=== PATIENT | male | born 1970 | race Caucasian/White ===

== ENCOUNTER 2023-10-07 18:46 | Outpatient (CLI) | payer OTHER, SELFPAY ==
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
--- OUTSIDE RECORDS SUMMARY | 2023-10-11 15:45 | XMS_ITS | Referral Summary ---
Author Name Unknown Organization [facility] Address [address] [place] [address] Care Team Providers Care Straight Edger Name Role Phone Unavailable Primary Care Provider Unavailabl e Allergies No known active allergies Medications Medication Sig Dispensed Refills Start Date End Date Status amitriptyline (ELAVIL) 25 MG tablet Take 1 tablet (25 mg) by mouth At Bedtime 90 tablet 1 06/29/2013 Active HYDROcodone-acetamin ophen (NORCO) 5-325 MG per tablet Take 1 tablet by mouth every 6 hours as needed for pain 42 tablet 0 06/29/2013 Active morphine 2.5 MG Take 2 tablets (5 mg) by mouth every 4 hours as needed for pain 0 06/29/2013 Active hydrOXYzine (VISTARIL) 50 MG capsule Take 1 capsule (50 mg) by mouth 3 times daily as needed for itching 120 capsule 0 06/29/2013 Active Active Problems Problem Noted Date Diagnosed Date CARDIOVASCULAR SCREENING; LDL GOAL LESS THAN 160 12/01/2012 Lumbar radiculopathy 12/01/2012 Immunizations Name Administration Dates Next Due TDAP (Adacel,Boostrix) 06/11/1998 Social History Tobacco Use Types Packs/Day Years Used Date Smoking Tobacco: Never Smokeless Tobacco: Never Alcohol Use Standard Drinks/Week Comments Yes 1.7 (1 standard drink = 0.6 oz p ure alcohol) rare Adolescent Education Answer Date Record ed Getting School Help Needed Not on file 06/08 Sex and Gender Information Value Date Recorded Sex Assigned at Not on file Gender Identity Not on file Sexual Orientation Not on file Last Filed Vital Signs Vital Sign Reading Time Taken Comments Blood Pressure 134/85 08/15/2022 11:20 AM SOLIDS CONTROL TECHNICIAN Pulse 72 08/15/2022 11:20 AM SOLIDS CONTROL TECHNICIAN Temperature 36.7 ??C (98.1 ??F) 06/29/2013 9:03 AM CD T Respiratory Rate - - Oxygen Saturation 98% 06/29/2013 9:03 AM CDT Inhaled Oxygen Concentration - - Weight 85.8 kg (189 lb 4 oz) 06/29/2013 9:03 AM CDT Height 175.3 cm (5' 9) 06/29/2013 9:03 AM CDT Body Mass Index 27.95 06/29/2013 9:03 AM CDT Plan of Treatment Not on file
--- OUTSIDE RECORDS SUMMARY | 2023-10-11 15:45 | XMS_ITS | Clinical Summary ---
Author Name Unknown Organization [facility] Address [facility] [place] [address] Care Team Providers Care Traffic Counter Name Role Phone Unavailable Primary Care Provider [...] Administration Dates Next Due TDAP (Adacel,Boostrix) 06/11/1998 Family History Medical History Relation Comments Cancer Maternal Grandmother throat Relation Status Comments Father Alive Maternal Grandmother Mother Social History Tobacco Use Types Packs/Day [...] Comments Blood Pressure 134/85 08/15/2022 11:20 AM MANAGER TEST Pulse 72 08/15/2022 11:20 AM MANAGER TEST Temperature 36.7 ??C (98.1 ??F) 06/29/2013 9:03 AM CD T Respiratory Rate - - Oxygen Saturation 98% 06/29/2013 9:03 AM CDT Inhaled Oxygen Concentration - - Weight 85.8 kg (189 lb 4 oz) 06/29/2013 9:03 AM CDT Height 175.3 cm (5' 9) 06/29/2013 9:03 AM CDT Body Mass Index 27.95 06/29/2013 9:03 AM CDT Plan of Treatment Health Maintenance Due Date Last Done Comments ADVANCE CARE PLANNING 1970 ANNUAL REVIEW OF HM ORDERS 1970 CT COLONOGRAPHY 1970 FIT 1970 FLEX SIG 1970 GLUCOSE 1970 YEARLY PREVENTIVE VISIT 1970 sDNA (Cologuard) 1970 COVID-19 Vaccine (#1) 05/21/1971 COLONOSCOPY 1980 COLORECTAL CANCER SCREENING 1980 HIV SCREENING 1985 HEPATITIS C SCREENING 1988 HEPATITIS B IMMUNIZATION (3 of 3 - Hep B Twinrix 3-dose series) 03/03/2008 10/04/2007, 01/03/2007 LIPID 2010 ZOSTER IMMUNIZATION (1 of 2) 2020 DTAP/TDAP/TD IMMUNIZATION (4 - Td or Tdap) 06/02/2022 06/02/2012, 01/03/2007, 06/11/1998, Additional history exists INFLUENZA VACCINE (#1) 2023 5, 07/03/2014, 06/15/2012, Additional history exists PHQ-2 (once per calendar year) 2023 HPV IMMUNIZATION Aged Out No longer e ligible based on patient's age to complete this topic IPV IMMUNIZATION Aged Out No longer e ligible based on patient's age to complete this topic MENINGITIS IMMUNIZATION Aged Out No l onger eligible based on patient's age to complete this topic Pneumococcal Vaccine: Pediatrics (0 to 5 Years) and At-Risk Patients (6 to 64 Years) Aged Out No longer eligible based on patient's age to complete this topic RSV MONOCLONAL ANTIBODY Aged Out No l onger eligible based on patient's age to complete this topic
--- OUTSIDE RECORDS SUMMARY | 2023-10-11 15:46 | XMS_ITS | Encounter Summary ---
Author Name [employer] [facility] [employer] Organization [facility] Address [address] [place] [address] Support Name Relationship Address Phone BRANDONGILMAMELQUIADES L Next of Kin [address] [place] [address] MELQUIADES TAYLOR Emergency Contact [phone] [place] [address] Insurance Providers: All historical and current Section Date Range: From patient's date of to the date document was created. This section includes the names of all active insurance providers for the patient. Insurance Provider Type of Coverage Plan Name Start of Policy Coverage End of Policy Coverage Group Number Member ID Insurance Provider's Telephone Number Policy Haque's Name Patient's Relationship to Policy Haque MEDICARE (WNR) MEDICARE (M) PART A January 01, 2016 PART A [id number] [phone] DUSTIN TAYLOR JR PATIENT MEDICARE (WNR) MEDICARE (M) PART B January 01, 2016 PART B [id number] [phone] DUSTIN TAYLOR JR PATIENT Selected Encounter This section includes the information on record at MD for the Encounter. Date/Time Encounter Type Encounter Description Reason Provider Source Oct 01, 2023 01:00 PM OFFICE O/P EST MOD 30 MIN ORTHO/JOINT SURG ICD-10-CM M25.512 Pain in left shoulder BAYRON PHAM MD [facility] Encounter Template Text not used by MD Assessments - Encounter Diagnoses This section includes the primary and secondary diagnoses documented for the Encounter. Date/Time Primary/Secondary Diagnosis Diagnosis Name Provider Source Oct 10, 2023 10:04 AM PRIMARY Pain in left shoulder BAYRON PHAM MD [facility] Plan of Treatment: Future Appointments (+ 6 months) and Future Tests (+/- 45 days) The Plan of Treatment section includes [facility] care activities for the [facility] This section includes future appointments and future orders which are active, pending or scheduled. Future Appointments This section includes appointments that were scheduled to occur 6 months from the date of the Encounter, up to a maximum of 20 appointments. The data comes from all [facility]. Appointment Date/Time Appointment Type Appointme nt Facility Name Oct 04, 2023 02:30 PM AMBULATORY - REHAB MEDICIN E [facility] Oct 14, 2023 11:30 AM AMBULATORY - REHAB MEDICIN E [facility] Oct 25, 2023 11:30 AM AMBULATORY - REHAB MEDICIN E [facility] Oct 31, 2023 01:00 PM AMBULATORY - NONE [facility] Nov 01, 2023 02:00 PM AMBULATORY - NONE [facility] 2023 09:00 AM AMBULATORY - REHAB MEDICIN E [facility] Feb 26, 2024 01:30 PM AMBULATORY - MEDICINE [facility] Active, Pending, and Scheduled Orders This section includes a listing of several types of active, pending, and scheduled orders, including clinic medications orders, diagnostic test orders, procedure orders and consult orders; where the start date of the order is 45 days before the date of the Encounter or 45 days after the date of theEncounter. The data comes from all [facility]. Test Date/Time Test Type Test Details Facility Name Aug 30, 2023 02:56 PM Consult Order SLEEP APNE A CLINIC OUTPT Cons Recreational Programs Director's Choice [facility] Oct 31, 2023 12:00 AM Laboratory - Chemi stry Order TESTOSTERONE SERUM SP ONCE [facility] Oct 31, 2023 12:00 AM Laboratory - Chemi stry Order CBC BLOOD SP ONCE [facility] Social History: Smoking Status (Most current) and Tobacco Use (All prior to encounter date) This section includes the most current, and the historical, smoking and tobacco- related health factors from the MD facility where the Encounter took place. Current Smoking Status This section includes the most current smoking, or tobacco-related health factor, from the MD facility where the Encounter took place. Date/Time Current Smoking Status Comment Shayne ity Nov 20, 2016 09:03 AM LIFETIME NON-TOBACCO USER [facility] Tobacco Use History This section includes a history of the smoking, or tobacco-related health factors, that were collected on or before the date of the Encounter. The data comes from the MD facility where the Encounter took place. Date/Time Smoking Status/Tobacco Use Comment F acility Jun 29, 2016 07:34 AM INPT NO TOBACCO USE IN LAST 30 D AYS [facility] Dec 12, 2015 12:47 PM LIFETIME NON-TOBACCO USER [facility] Dec 28, 2014 12:34 PM LIFETIME NON-TOBACCO USER [facility] Jul 08, 2012 07:40 AM LIFETIME NON-TOBACCO USER [facility] Radiology Reports: +/- 30 days of the encounter Radiology Reports For cases when an order for radiology services may have been completed prior to the date of the Encounter, the report list includes the Radiology Reports that were completed up to 30 days before dateof the Encounter. For cases when an order for radiology services may have been completed after the date of the Encounter, the report list also includes the Radiology Reports that were completed up to30 days after date of the Encounter. The data comes from all MD treatment facilities. Date/Time Radiology Report Provider Source Oct 01, 2023 12:22 PM SHOULDER LEFT 4V(AP,Y VIEW, GRASHEY & AXILLARY): DUSTIN TAYLOR [id number] -[id number] M Exm Date: OCT 01, 2023@12:22 Req Phys: BAYRON PHAM MD Pat Loc: [facility] MD PHAM (Req'g Loc Img Loc: MAIN X-RAY Service: Unknown (Case [id number] COMPLETE) SHOULDER LEFT 4V(AP,Y VIEW, GRASH(RAD Detailed) CPT:70652 Proc Modifiers : LEFT Reason for Study: Pain Clinical History: [place] IS NOT under investigation for COVID-19 or is COVID-19 negative Pain Responsible provider name and phone number to notify for critical findings if other than user placing the order and pager listed below: User placing orders pager: LAST CREATININE 1.4 H (02/26/23) Report Status: Verified Date Reported: OCT 01, 2023 Date Verified: OCT 01, 2023 Electrician Journeyman Wireman E-Sig:/ES/SARA BROWNE MD Report: DATE/TIME REGISTERED: 10/01/2023 12:22 PM STUDY: SHOULDER LEFT 4V(AP,Y VIEW, GRASHEY & AXILLARY) HISTORY: Pain FINDINGS: 4 views of the left shoulder reveal normal bony architecture and smooth cortical margins. No fractures or destructive lesions are appreciated. The glenohumeral and AC joints are unremarkable. The subacromial space is preserved. No soft tissue calcifications are identified. The upper chest is unremarkable where seen. Impression: 1. Normal plain film examination of the left shoulder. Primary Interpreting Staff: SARA BROWNE MD, RADIOLOGIST (Electrician Journeyman Wireman) /SARA MENDOZA [facility] Oct 01, 2023 06:51 AM MRI SHOULDER LEFT (P): DUSTIN TAYLOR [id number] M Exm Date: OCT 01, 2023@06:51 Req Phys: BAYRON PHAM MD Pat Loc: [facility] MD PHAM (Req'g Loc Img Loc: MRI IMAGING Service: Unknown (Case [id number] COMPLETE) MRI SHOULDER LEFT W/O CONTRAST (MRI Detailed) CPT:02945 Reason for Study: Eval rotator cuff Clinical History: Per Joint Commission Standards, by signing this diagnostic imaging request the ordering provider confirms they have considered patients age and recent imaging history. Increased left shouolder pain following lifting injury Responsible provider name and phone number to notify for critical findings if other than user placing the order and pager listed below: User placing orders pager: LAST CREATININE 1.4 H (02/26/23) Allergies: CYCLOBENZAPRINE (May 03, 2020) METHOCARBAMOL (May 03, 2020) Report Status: Verified Date Reported: OCT 01, 2023 Date Verified: OCT 01, 2023 Electrician Journeyman Wireman E-Sig:/ES/NEGRITA HART MD Report: Exam: MRI SHOULDER LEFT W/O CONTRAST 10/01/2023 History: Previous left shoulder pain with lifting injury. Evaluate rotator cuff. Comparison: Left shoulder radiograph 06/01/2022. Left shoulder MRI arthrogram 08/15/2022. Technique: Multiplanar, multisequence MR images through the shoulder were obtained without intravenous contrast. Findings: Rotator cuff: There is full-thickness tearing of the supraspinatus tendon involving most of the anterior to posterior width of the tendon. There is tendon retraction by 1.2 cm. Infraspinatus tendon is intact. Teres minor tendon is intact. There is mild distal subscapularis tendon with low-grade chronic appearing intrasubstance tearing. Muscle bulk is normal. There is mild edema along the deep fibers of the subscapularis muscle (series 5 image 13, series 3 image 15). Labral scapular structures: Glenoid labrum appears intact. Slight intra-articular long biceps tendinopathy. Suspected normal variant bifid long biceps tendon. Slight medial subluxation of the long biceps tendon into the subscapularis tendon. Acromion/clavicle: There is minimal degenerative bony spurring of distal clavicle. Acromioclavicular joint space is widened, similar to 2022 MRI arthrogram. There is an acromioclavicular joint effusion which likely communicates with the subacromial subdeltoid bursal fluid, more definitively demonstrated on prior MRI arthrogram. There is no os acromiale. The subacromial-subdeltoid bursal fluid communicates with the glenohumeral joint fluid through the full-thickness rotator cuff tear. Osseous and articular structures: No suspicious osseous lesion. Humeral head is well-seated within the glenoid. There is thinning of glenohumeral articular cartilage. No subchondral osseous changes. Inferior joint capsule is normal. No suprascapular or spinoglenoid notch lesion. Tiny glenohumeral joint effusion. Impression: 1. Full-thickness tearing of the majority of the anterior to posterior width of the supraspinatus tendon with tendon retraction by 1.2 cm. The tearing has progressed compared to 2022 MRI arthrogram. 2. Mild distal subscapularis tendinopathy with low-grade, chronic appearing intrasubstance tearing. Mild strain of the deep fibers of the subscapularis muscle. 3. Slight intra-articular long biceps tendinopathy. Slight medial subluxation of the tendon into the subscapularis tendon. 4. Minimal degenerative spurring of the distal clavicle. Chronic widening of the acromioclavicular joint with joint effusion. 5. Thinning of glenohumeral articular cartilage. Primary Interpreting Staff: NEGRITA HART MD, RADIOLOGIST (Electrician Journeyman Wireman) /NEGRITA MATSON [facility] Encounter Notes: All associated encounter notes This section contains the clinical notes associated to the Encounter. Date/Time Encounter Note(s) Provider Source Oct 01, 2023 01:43 PM ORTHOPEDIC SURGERY ATTENDING NOTE: LOCAL TITLE: ORTHOPEDIC CLINIC NOTE STANDARD TITLE: ORTHOPEDIC SURGERY ATTENDING NOTE DATE OF NOTE: OCT 01, 2023@13:43 ENTRY DATE: OCT 01, 2023@13:43:19 AUTHOR: BAYRON PHAM MD EXP COSIGNER: URGENCY: STATUS: COMPLETED Orthopedic clinic note 52-year-old gentleman followed for a recurrance of left shoulder pain while lifting dumbells. He had severe scapular dyskinesis and a history of a possible cuff tear on a previous MRI. We recommended PT to correct his scapular mechanics and a non contrast MRI to evaluate for cuff tear given his young age. Did not go to therapy as previously arranged. He is doing some work in the gym. Complains of superior shoulder deformity and posterior pain. Not aggravated with pushing or Benchpress and no feelings of instability. Pain is similar to before with pain along the medial scapula and now pain superiorly along the trap. Persistent scapular ptosis The superior deformity he paints out seems to be prominance of the trap due to the scapular malpositioning, and is eliminated with manual correction of his scapular position Severe scapular dyskinesis Pain about the medial scapula with forward elevation Much decreased pain with scapular assist maneuver Improved external rotation strength still less than on the opposite side. Mild pain with resisted cuff testing Negative lift off, negative belly press, equivocal bearhug Pain in the bicipital groove with palpation Negative aprehension Negative Jerk test X-rays taken today show marked scapular malpositioning. There is absence of glenohumeral DJD. No subluxation with humeral head elevation. Sclerotic bony change at the greater tuberosity. MRI scan from 10/01/2023 demonstrates full-thickness supraspinatus tear. There is upper portion tearing of the subscapularis with medial bicipital subluxation into the subscapularis tendon. No rotator cuff atrophy noted 52 yo gentleman with left shoulder pain and rotator cuff tear on MRI Marked progression of supraspinatus tear compared to prior arthrogram in 2021 Subscapularis tear with biceps medial subluxation Persistent severe scapular ptosis and scapular dyskinesis which seems to be the primary pain generator. He understands his pain will not improve unless he can correct his scapular mechanics. We also discussed the ramifications of a cuff tear in a young person. He understands we typically recommend cuff repair to decrease the risk for enlargement of the cuff tear. He is interested in cuff reapait but would not be able to undergo surgery and associated rehab until much later in the year. Plan: PT to corrrect his scapular mechanics F/U in early April to discuss cuff repair and poss subscap with biceps tenodesis with one of my shoulder partners /es/ BAYRON PHAM MD STAFF SURGEON Signed: 10/10/2023 10:05 BAYRON PHAM MD [facility]
--- OUTSIDE RECORDS SUMMARY | 2023-10-11 15:46 | XMS_ITS | Continuity of Care Document ---
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 It does not include entries that were removed or entered in error. Problem Status Onset Date Problem Type Date of Resolution Comments Source lumbago Active Condition [facility] herniated intervertebral disc Active Condition [facility] lumbar spondylosis Active Condition [facility] visit for: administrative purpose Inactive Condition DoD Allergic Rhinitis ([facility] [id number]) [facility] BACKACHE NOS Active Condition [facility] Body mass index 25-29 - overweight [facility] Chronic pain Active Condition Mar 11, 2020 Entered By: ROSELYN RIOS Comment: discussed likely dx fibromyalgia; see 03/02/19 [facility] note for details [facility] Erectile dysfunction Active Condition [facility] Exposure to potentially hazardous substance Active Condition [facility] Family social history Active Condition Feb 22, 2022 Entered By: WONG MERCER Comment: 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,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,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, 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[employer]( [employer])Feb 22, 2022 Entered By: WONG MERCER Comment: Lives with 2 daughters 14 and 10 yr old part timeJun 2021 Entered By: WONG MERCER Comment: NEVER USED TOBACCO OR SMOKED TOBACCOJun 2021 Entered By: WONG MERCER Comment: Alcohol use 4-5 drinks upto four times a month ( Every other weekend)Feb 22, 2022 Entered By: WONG MERCER Comment: [place], has exposure to ticks, 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, 1 dogJun 2021 Entered By: WONG MERCER Comment: Mom passed in her 60's, CHF, Dad is alive had a stroke in 21 at age 71Jun 2021 Entered By: WONG MERCER Comment: 1 Younger brother is healthyJun 2021 Entered By: WONG MERCER Comment: maternal grandma smoked and had throat cancer [facility] Generalized anxiety disorder (SNOMED CT 63086820) Active Condition [facility] H/O: surgery Active Condition Feb 22, 2022 Entered By: WONG MERCER Comment: s/p VasectomyJun 2021 Entered By: WONG MERCER Comment: s/p Bilteral Distal Biceps repair separatelyJun 2021 Entered By: WONG MERCER Comment: s/p C6-7 ForaminotomyJun 2021 Entered By: WONG MERCER Comment: s/p lower back fusion L4-S1 WITH HARDWAREJun 2021 Entered By: WONG MERCER Comment: s/p wisdom teeth extraction [facility] Insomnia Active Condition [facility] Major depressive disorder (SNOMED CT 983824751) Active Condition [facility] Male hypogonadism [facility] Osteoarthritis Active Condition [facility] Pain of right temporomandibular joint Active Condition [facility] Prediabetes Active Condition [facility] Rupture of tendon of biceps Active Condition [facility] Sleep apnea (SNOMED CT 51980137) Active Condition Mar 11, 2020 Entered By: ROSELYN RIOS Comment: doesn't wear CPAP because can't have something covering his face [facility] Diagnosis: ICD-10-CM M25.512 Pain in left shoulder Active Diagnosis [facility] Diagnosis: ICD-10-CM 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, right shoulder Active Diagnosis [facility] Diagnosis: ICD-10-CM E29.1 Testicular hypofunction Active Diagnosis [facility] Diagnosis: ICD-10-CM M20.21 Hallux rigidus, right foot Active Diagnosis [facility] Diagnosis: ICD-10-CM Z00.8 Encounter for other general examination Active Diagnosis [facility] Diagnosis: ICD-10-CM M25.519 Pain in unspecified shoulder Active Diagnosis [facility] Diagnosis: ICD-10-CM M25.511 Pain in right shoulder Active Diagnosis [facility] Diagnosis: ICD-10-CM Z71.9 Counseling, unspecified Active Diagnosis [facility] Diagnosis: ICD-10-CM G89.29 Other chronic pain Active Diagnosis [facility] Medications Combined list of outpatient medications from Department of Defense and Veterans Affairs facilities.Medications provided include 1) outpatient medications from the last 15 months, and 2) patient-reported medications. Medication Details Route Status Patient Instructions Prescription Expires Prescription Number Last Dispense Date Ordering Provider Order Date Source BIOTIN CAP,ORAL TAKE COLLAGEN /BIOTIN/ VITAMIN C COMBO BY MOUTH EVERY DAY ORALLY ACTIVE EM LAW 2022 [facility]X: Sildenafil 100 mg/Placebo Tablet Oral TAKE ONE-HALF TABLET BY MOUTH NEEDED FOR ERECTILE DYSFUNCT ION 1 HOUR BEFORE ANTICIPA DARLENE SEXUAL ACTIVITY Active 02/27/2024 [id number] RIKA HAQUE 2022 [facility] IRX: Sildenafil 100 mg/Placebo Tablet Oral TAKE ONE-HALF TABLET BY MOUTH NEEDED FOR ERECTILE DYSFUNCT ION 1 HOUR BEFORE ANTICIPA DARLENE SEXUAL ACTIVITY Active 02/27/2024 [id number] 3 RIKA HAQUE 2022 [facility] IRX: Sildenafil 100 mg/Placebo Tablet Oral TAKE ONE-HALF TABLET BY MOUTH NEEDED 1 HOUR BEFORE ANTICIPA DARLENE SEXUAL ACTIVITY --MAXIMU M 4 DOSES FOR 30-DAY SUPPLY. FOR ERECTION S 05/22/2023 [id number] 3 WONG MERCER S 2022 [facility] L-ARGININE 500MG TAB TAKE TWO TABLETS BY MOUTH EVERY DAY ORALLY ACTIVE EM LAW 2022 [facility] MILK THISTLE CAP/TAB TAKE 175MG BY MOUTH EVERY DAY ORALLY ACTIVE EM LAW 2022 [facility] MULTIVITAMI NS CAP/TAB TAKE ONE TABLET BY MOUTH EVERY DAY ORALLY ACTIVE EM LAW 2022 [facility] NON VA MED NOT LISTED MISCELLANEO US USE L-GLUTAM INE 5G MOUTH EVERY DAY ORALLY ACTIVE EM LAW 2022 [facility] SILDENAFIL CITRATE 100MG TAB TAKE ONE-HALF TABLET BY MOUTH NEEDED FOR ERECTILE DYSFUNCT ION 1 HOUR BEFORE ANTICIPA DARLENE SEXUAL ACTIVITY ORALLY ACTIVE 02/27/2024 [id number] 3 RIKA HAQUE 2022 [facility] SILDENAFIL CITRATE 100MG TAB TAKE ONE-HALF TABLET BY MOUTH NEEDED 1 HOUR BEFORE ANTICIPA DARLENE SEXUAL ACTIVITY --MAXIMU M 4 DOSES FOR 30-DAY SUPPLY. FOR ERECTION S ORALLY DISCONT INUED 05/22/2023 [id number] SYLIVE,EMMA GA S 2021 [facility] TESTOSTERON E 1.62% 20.25MG/PUM P GEL,TOP APPLY 2 PUMPS TOPICALL Y ONCE A DAY FOR LOW TESTOSTE ANGEL TOPICA LLY DISCONT INUED 08/31/2023 [id number] 3 RIKA HAQUE 2022 [facility] Testosteron e 20.25 mg/Actuatio n, Gel/Jelly, Topical APPLY 2 PUMPS TOPICALL Y ONCE A DAY FOR LOW TESTOSTE ANGEL Discont inued 08/31/2023 [id number] 3 RIKA HAQUE 2022 [facility] TESTOSTERON E CYPIONATE 200MG/ML INJ,1ML (IN OIL) INJECT 0.5ML (100MG) INTRAMUS CULAR EVERY WEEK FOR LOW TESTOSTE ANGEL FOR HYPOGONA DISM (200MG IS 1ML) -DISCARD VIAL AFTER WITHDRAW ING A SINGLE DOSE INTRAM USCULA R ACTIVE 03/05/2024 [id number] 4 RIKA HAQUE 2023 [facility] TESTOSTERON E CYPIONATE 200MG/ML INJ,1ML (IN OIL) INJECT 1ML (200MG) INTRAMUS CULAR EVERY 2 WEEKS FOR HYPOGONA DISM (200MG IS 1ML) -DISCARD VIAL AFTER WITHDRAW ING A SINGLE DOSE INTRAM USCULA R DISCONT INUED (EDIT) 10/09/2023 [id number] 3 RIKA HAQUE 2022 [facility] TESTOSTERON E CYPIONATE 200MG/ML INJ,1ML (IN OIL) INJECT 200MG INTRAMUS CULAR EVERY 2 WEEKS FOR HYPOGONA DISM (200MG IS 1ML) -DISCARD VIAL AFTER WITHDRAW ING A SINGLE DOSE INTRAM USCULA R DISCONT INUED 08/29/2023 [id number] 3 RIKA HAQUE 2022 [facility] TESTOSTERON E CYPIONATE 200MG/ML INJ,1ML (IN OIL) INJECT 200MG INTRAMUS CULAR EVERY 2 WEEKS FOR HYPOGONA DISM (200MG IS 1ML) -DISCARD VIAL AFTER WITHDRAW ING A SINGLE DOSE INTRAM USCULA R DISCONT INUED 06/07/2023 [id number] 3 ERCAN-FAN G,NACIDE 2022 [facility] TESTOSTERON E CYPIONATE 200MG/ML INJ,1ML (IN OIL) INJECT 200MG INTRAMUS CULAR EVERY 2 WEEKS FOR HYPOGONA DISM (200MG IS 1ML) -DISCARD VIAL AFTER WITHDRAW ING A SINGLE DOSE INTRAM USCULA R DISCONT INUED 12/13/2022 [id number] 3 ERCAN-FAN G,NACIDE 2021 [facility] Testosteron e Cypionate 200mg/mL, Injection INJECT 0.5ML (100MG) INTRAMUS CULAR EVERY WEEK FOR LOW TESTOSTE ANGEL FOR HYPOGONA DISM (200MG IS 1ML) -DISCARD VIAL AFTER WITHDRAW ING A SINGLE DOSE Active 03/05/2024 [id number] 4 RIKA HAQUE 2023 [facility] Testosteron e Cypionate 200mg/mL, Injection INJECT 1ML (200MG) INTRAMUS CULAR EVERY 2 WEEKS FOR HYPOGONA DISM (200MG IS 1ML) -DISCARD VIAL AFTER WITHDRAW ING A SINGLE DOSE Discont inued 10/09/2023 [id number] 3 RIKA HAQUE 2022 [facility] Testosteron e Cypionate 200mg/mL, Injection INJECT 200MG INTRAMUS CULAR EVERY 2 WEEKS FOR HYPOGONA DISM (200MG IS 1ML) -DISCARD VIAL AFTER WITHDRAW ING A SINGLE DOSE 12/13/2022 [id number] ERCAN-FAN G, NACIDE 2022 [facility] Allergies, Adverse Reactions, Alerts Combined list of allergies from Department of Defense and Veterans [facility] facilities. It does not include entries that were removed or entered in error. Substance Category Reaction Severity Reaction type Status Date Reported Comments Source CYCLOBENZAPRIN E Drug allergy (disorder ) Drowsy active 0 [facility] METHOCARBAMOL Drug allergy (disorder ) Drowsy active 0 [facility] Immunizations Combined list of available immunizations from the Department of [facility] and Veterans [facility] facilities. Immunization Series Date Given Administered By Site Reaction Lot Number CVX Code Drug Grade And Center Marker Status Comments Source INFLUENZA, SEASONAL, INJECTABLE 2014 141 complet ed [facility] INFLUENZA, SEASONAL, INJECTABLE 2013 141 complet ed per pt [facility] Influenza, seasonal, injectable, preservative free 1 2011 [id number] [employer], [place]. (CSL) complet ed Influenza , seasonal, injectabl e, preservat mumtaz free [facility] INFLUENZA, UNSPECIFIED FORMULATION 2011 88 complet ed [facility] TDAP 2011 115 complet ed [facility] influenza virus vaccine, split virus (incl. purified surface antigen)-reti red CODE 1 2007 UNK 15 Unknown (UNK) comple t ed influenza virus vaccine, split virus (incl. purified surface antigen)- retired CODE DoD hepatitis A and hepatitis B vaccine 2 2007 [id number] 104 Unknown (UNK) complet ed hepatitis A and hepatitis B vaccine DoD hepatitis A and hepatitis B vaccine 1 2006 [id number] 104 Unknown (UNK) complet ed hepatitis A and hepatitis B vaccine DoD tetanus toxoid, reduced diphtheria toxoid, and acellular pertu is vaccine, adsorbed 1 2006 [id number] 115 Unknown (UNK) complet ed tetanus toxoid, reduced diphtheri a toxoid, and acellular pertussis vaccine, adsorbed DoD influenza virus vaccine, split virus (incl. purified surface antigen)-reti red CODE 1 2005 [id number] 15 Unknown (UNK) complet ed influenza virus vaccine, split virus (incl. purified surface antigen)- retired CODE DoD Results Combined list of recent chemistry, hematology and other laboratory results from Department of Defense and Veterans Affairs, ranging from 15 months to all on record, depending upon the facility. Order Name Results Value Reference Range Date Interpretation Specimen Comments Source LIPID PANEL,NON -FASTING CHOLESTEROL [MASS/VOLUM E] IN SERUM OR PLASMA 177 <199 - 199 08/27 Specimen Type: PLASMA No comment entered. Ordering Provider: LOYDA HAQUE Report Released Date/Time: Feb 27, 2023 08:53 AM Reporting Lab: [facility] [address] Performing Lab: [facility] [address] [facility] LIPID PANEL,NON -FASTING CHOLESTEROL IN HDL [MASS/VOLUM E] IN SERUM OR PLASMA 49 40 08/27 Specimen Type: PLASMA No comment entered. Ordering Provider: LOYDA HAQUE Report Released Date/Time: Feb 27, 2023 08:53 AM Reporting Lab: [facility] [address] Performing Lab: [facility] [address] [facility] LIPID PANEL,NON -FASTING CHOLESTEROL IN LDL [MASS/VOLUM E] IN SERUM OR PLASMA BY CALCULATION 113 <99 - 99 08/27 H Specimen Type: PLASMA No comment entered. Ordering Provider: LOYDA HAQUE Report Released Date/Time: Feb 27, 2023 08:53 AM Reporting Lab: [facility] [address] Performing Lab: [facility] [address] [facility] LIPID PANEL,NON -FASTING CHOLESTEROL IN VLDL [MASS/VOLUM E] IN SERUM OR PLASMA BY CALCULATION 15 <29 - 29 08/27 Specimen Type: PLASMA No comment entered. Ordering Provider: LOYDA HAQUE Report Released Date/Time: Feb 27, 2023 08:53 AM Reporting Lab: [facility] [address] Performing Lab: [facility] [address] [facility] LIPID PANEL,NON -FASTING CHOLESTEROL NON HDL [MASS/VOLUM E] IN SERUM OR PLASMA 128 <129 - 129 08/27 Specimen Type: PLASMA No comment entered. Ordering Provider: LOYDA HAQUE Report Released Date/Time: Feb 27, 2023 08:53 AM Reporting Lab: [facility] [address] Performing Lab: [facility] [address] [facility] LIPID PANEL,NON -FASTING TRIGLYCERID E [MASS/VOLUM E] IN SERUM OR PLASMA 77 <149 - 149 08/27 Specimen Type: PLASMA No comment entered. Ordering Provider: LOYDA HAQUE Report Released Date/Time: Feb 27, 2023 08:53 AM Reporting Lab: [facility] [address] Performing Lab: [facility] [address] [facility] TESTOSTER ONE TESTOSTERON E [MASS/VOLUM E] IN SERUM OR PLASMA 1382 221 - 870 08/27 H Specimen Type: SERUM No comment entered. Ordering Provider: EM SILVER Report Released Date/Time: Apr 08, 2023 10:57 AM Reporting Lab: [facility] [address] Performing Lab: [facility] [address] [place] [facility] CBC LEUKOCYTES [#/VOLUME] IN BLOOD BY AUTOMATED COUNT 9.37 4.0 - 11.0 08/27 Specimen Type: BLOOD No comment entered. Ordering Provider: EM SILVER Report Released Date/Time: Apr 08, 2023 10:57 AM Reporting Lab: [facility] [address] Performing Lab: [facility] [address] [place] [facility] CBC ERYTHROCYTE S [#/VOLUME] IN BLOOD BY AUTOMATED COUNT 5.79 4.6 - 6.2 08/27 Specimen Type: BLOOD No comment entered. Ordering Provider: EM SILVER Report Released Date/Time: Apr 08, 2023 10:57 AM Reporting Lab: [facility] [address] Performing Lab: [facility] [address] [place] [facility] CBC HEMOGLOBIN [MASS/VOLUM E] IN BLOOD 17.0 13.5 - 17.9 08/27 Specimen Type: BLOOD No comment entered. Ordering Provider: EM SILVER Report Released Date/Time: Apr 08, 2023 10:57 AM Reporting Lab: [facility] [address] Performing Lab: [facility] [address] [place] [facility] CBC HEMATOCRIT [VOLUME FRACTION] OF BLOOD BY AUTOMATED COUNT 52.0 41 - 54 08/27 Specimen Type: BLOOD No comment entered. Ordering Provider: EM SILVER Report Released Date/Time: Apr 08, 2023 10:57 AM Reporting Lab: [facility] [address] Performing Lab: [facility] [address] [place] [facility] CBC MCV [ENTITIC VOLUME] BY AUTOMATED COUNT 89.8 80 - 100 08/27 Specimen Type: BLOOD No comment entered. Ordering Provider: EM SILVER Report Released Date/Time: Apr 08, 2023 10:57 AM Reporting Lab: [facility] [address] Performing Lab: [facility] [address] [place] [facility] CBC MCH [ENTITIC MASS] BY AUTOMATED COUNT 29.4 27 - 33 08/27 Specimen Type: BLOOD No comment entered. Ordering Provider: EM SILVER Report Released Date/Time: Apr 08, 2023 10:57 AM Reporting Lab: [facility] [address] Performing Lab: [facility] [address] [place] [facility] CBC MCHC [MASS/VOLUM E] BY AUTOMATED COUNT 32.7 32.0 - 37.5 08/27 Specimen Type: BLOOD No comment entered. Ordering Provider: EM SILVER Report Released Date/Time: Apr 08, 2023 10:57 AM Reporting Lab: [facility] [address] Performing Lab: [facility] [address] [place] [facility] CBC PLATELETS [#/VOLUME] IN BLOOD BY AUTOMATED COUNT 202 150 - 400 08/27 Specimen Type: BLOOD No comment entered. Ordering Provider: EM SILVER Report Released Date/Time: Apr 08, 2023 10:57 AM Reporting Lab: [facility] [address] Performing Lab: [facility] [address] [facility] CBC PLATELET MEAN VOLUME [ENTITIC VOLUME] IN BLOOD BY AUTOMATED COUNT 10.4 7.4 - 10.4 08/27 Specimen Type: BLOOD No comment entered. Ordering Provider: EM SILVER Report Released Date/Time: Apr 08, 2023 10:57 AM Reporting Lab: [facility] [address] Performing Lab: [facility] [address] [facility] CBC ERYTHROCYTE DISTRIBUTIO N WIDTH [RATIO] BY AUTOMATED COUNT 14.5 11.5 - 14.5 08/27 Specimen Type: BLOOD No comment entered. Ordering Provider: EM SILVER Report Released Date/Time: Apr 08, 2023 10:57 AM Reporting Lab: [facility] [address] Performing Lab: [facility] [address] [facility] TSH W/REFLEX TO FREE T4 THYROTROPIN [UNITS/VOLU ME] IN SERUM OR PLASMA 0.49 0.35 - 4.94 02/26 Specimen Type: PLASMA No comment entered. Ordering Provider: LOYDA HAQUE Report Released Date/Time: Feb 26, 2023 02:13 PM Reporting Lab: [facility] [address] Performing Lab: [facility] [address] [facility] HEMOGLOBI N A1C HEMOGLOBIN A1C/HEMOGLO BIN.TOTAL IN BLOOD 5.2 4.0 - 6.0 02/26 Specimen Type: BLOOD Comment: Values obtained from A1C measurement s can vary. For typical A1C assays, a reported value of 7.0 could actually be between 6.7 and 7.3 if measured by a reference method. A reported value of 9.0 could actually be between 8.7 and 9.3. Ref: http://www. ngsp.org/[place] Pdata.asp Ordering Provider: LOYDA HAQUE Report Released Date/Time: Feb 26, 2023 02:13 PM Reporting Lab: [facility] [address] Performing Lab: [facility] [address] [facility] TESTOSTER ONE TESTOSTERON E [MASS/VOLUM E] IN SERUM OR PLASMA 266 221 - 870 02/26 Specimen Type: SERUM No comment entered. Ordering Provider: LOYDA HAQUE Report Released Date/Time: Feb 26, 2023 02:13 PM Reporting Lab: [facility] [address] Performing Lab: [facility] [address] [facility] LIPID PANEL,NON -FASTING CHOLESTEROL [MASS/VOLUM E] IN SERUM OR PLASMA 199 02/26 Specimen Type: PLASMA No comment entered. Ordering Provider: LOYDA HAQUE Report Released Date/Time: Feb 26, 2023 02:13 PM Reporting Lab: [facility] [address] Performing Lab: [facility] [address] [facility] LIPID PANEL,NON -FASTING CHOLESTEROL IN HDL [MASS/VOLUM E] IN SERUM OR PLASMA 51 02/26 Specimen Type: PLASMA No comment entered. Ordering Provider: LOYDA HAQUE Report Released Date/Time: Feb 26, 2023 02:13 PM Reporting Lab: [facility] [address] Performing Lab: [facility] [address] [facility] LIPID PANEL,NON -FASTING CHOLESTEROL IN LDL [MASS/VOLUM E] IN SERUM OR PLASMA BY CALCULATION 123 02/26 H Specimen Type: PLASMA No comment entered. Ordering Provider: LOYDA HAQUE Report Released Date/Time: Feb 26, 2023 02:13 PM Reporting Lab: [facility] [address] Performing Lab: [facility] [address] [facility] LIPID PANEL,NON -FASTING CHOLESTEROL IN VLDL [MASS/VOLUM E] IN SERUM OR PLASMA BY CALCULATION 25 02/26 Specimen Type: PLASMA No comment entered. Ordering Provider: LOYDA HAQUE Report Released Date/Time: Feb 26, 2023 02:13 PM Reporting Lab: [facility] [address] Performing Lab: [facility] [address] [facility] LIPID PANEL,NON -FASTING CHOLESTEROL NON HDL [MASS/VOLUM E] IN SERUM OR PLASMA 148 02/26 H Specimen Type: PLASMA No comment entered. Ordering Provider: LOYDA HAQUE Report Released Date/Time: Feb 26, 2023 02:13 PM Reporting Lab: [facility] [address] Performing Lab: [facility] [address] [facility] LIPID PANEL,NON -FASTING TRIGLYCERID E [MASS/VOLUM E] IN SERUM OR PLASMA 124 02/26 Specimen Type: PLASMA No comment entered. Ordering Provider: LOYDA HAQUE Report Released Date/Time: Feb 26, 2023 02:13 PM Reporting Lab: [facility] [address] Performing Lab: [facility] [address] [facility] COMPREHEN SIVE METABOLIC PANEL+MG CREATININE [MASS/VOLUM E] IN SERUM OR PLASMA 1.4 0.7 - 1.2 02/26 H Specimen Type: PLASMA No comment entered. Ordering Provider: LOYDA HAQUE Report Released Date/Time: Feb 26, 2023 02:13 PM Reporting Lab: [facility] [address] Performing Lab: [facility] [address] [facility] COMPREHEN SIVE METABOLIC PANEL+MG UREA NITROGEN [MASS/VOLUM E] IN SERUM OR PLASMA 20 8 - 26 02/26 Specimen Type: PLASMA No comment entered. Ordering Provider: LOYDA HAQUE Report Released Date/Time: Feb 26, 2023 02:13 PM Reporting Lab: [facility] [address] Performing Lab: [facility] [address] [facility] COMPREHEN SIVE METABOLIC PANEL+MG GLUCOSE [MASS/VOLUM E] IN SERUM OR PLASMA 80 70 - 100 02/26 Specimen Type: PLASMA No comment entered. Ordering Provider: LOYDA HAQUE Report Released Date/Time: Feb 26, 2023 02:13 PM Reporting Lab: [facility] [address] Performing Lab: [facility] [address] [facility] COMPREHEN SIVE METABOLIC PANEL+MG SODIUM [MOLES/VOLU ME] IN SERUM OR PLASMA 140 136 - 145 02/26 Specimen Type: PLASMA No comment entered. Ordering Provider: LOYDA HAQUE Report Released Date/Time: Feb 26, 2023 02:13 PM Reporting Lab: [facility] [address] Performing Lab: [facility] [address] [facility] COMPREHEN SIVE METABOLIC PANEL+MG POTASSIUM [MOLES/VOLU ME] IN SERUM OR PLASMA 4.4 3.5 - 5.1 02/26 Specimen Type: PLASMA No comment entered. Ordering Provider: LOYDA HAQUE Report Released Date/Time: Feb 26, 2023 02:13 PM Reporting Lab: [facility] [address] Performing Lab: [facility] [address] [facility] COMPREHEN SIVE METABOLIC PANEL+MG CHLORIDE [MOLES/VOLU ME] IN SERUM OR PLASMA 105 98 - 107 02/26 Specimen Type: PLASMA No comment entered. Ordering Provider: LOYDA HAQUE Report Released Date/Time: Feb 26, 2023 02:13 PM Reporting Lab: [facility] [address] Performing Lab: [facility] [address] [facility] COMPREHEN SIVE METABOLIC PANEL+MG CARBON DIOXIDE, TOTAL [MOLES/VOLU ME] IN SERUM OR PLASMA - 02/26 Specimen Type: PLASMA No comment entered. Ordering Provider: LOYDA HAQUE Report Released Date/Time: Feb 26, 2023 02:13 PM Reporting Lab: [facility] [address] Performing Lab: [facility] [address] [facility] COMPREHEN SIVE METABOLIC PANEL+MG CALCIUM [MASS/VOLUM E] IN SERUM OR PLASMA 9.4 8.4 - 10.2 02/26 Specimen Type: PLASMA No comment entered. Ordering Provider: LOYDA HAQUE Report Released Date/Time: Feb 26, 2023 02:13 PM Reporting Lab: [facility] [address] Performing Lab: [facility] [address] [facility] COMPREHEN SIVE METABOLIC PANEL+MG PROTEIN [MASS/VOLUM E] IN SERUM OR PLASMA 7.5 6.0 - 8.3 02/26 Specimen Type: PLASMA No comment entered. Ordering Provider: LOYDA HAQUE Report Released Date/Time: Feb 26, 2023 02:13 PM Reporting Lab: [facility] [address] Performing Lab: [facility] [address] [facility] COMPREHEN SIVE METABOLIC PANEL+MG ALBUMIN [MASS/VOLUM E] IN SERUM OR PLASMA 4.4 3.5 - 5.2 02/26 Specimen Type: PLASMA No comment entered. Ordering Provider: LOYDA HAQUE Report Released Date/Time: Feb 26, 2023 02:13 PM Reporting Lab: [facility] [address] Performing Lab: [facility] [address] [facility] COMPREHEN SIVE METABOLIC PANEL+MG BILIRUBIN.T OTAL [MASS/VOLUM E] IN SERUM OR PLASMA 0.6 0.2 - 1.2 02/26 Specimen Type: PLASMA No comment entered. Ordering Provider: LOYDA HAQUE Report Released Date/Time: Feb 26, 2023 02:13 PM Reporting Lab: [facility] [address] Performing Lab: [facility] [address] [facility] COMPREHEN SIVE METABOLIC PANEL+MG MAGNESIUM [MASS/VOLUM E] IN SERUM OR PLASMA 2.1 1.6 - 2.6 02/26 Specimen Type: PLASMA No comment entered. Ordering Provider: LOYDA HAQUE Report Released Date/Time: Feb 26, 2023 02:13 PM Reporting Lab: [facility] [address] Performing Lab: [facility] [address] [facility] COMPREHEN SIVE METABOLIC PANEL+MG ANION GAP IN SERUM OR PLASMA 8 5 - 15 02/26 Specimen Type: PLASMA No comment entered. Ordering Provider: LOYDA HAQUE Report Released Date/Time: Feb 26, 2023 02:13 PM Reporting Lab: [facility] [address] Performing Lab: [facility] [address] [facility] COMPREHEN SIVE METABOLIC PANEL+MG ALKALINE PHOSPHATASE [ENZYMATIC ACTIVITY/VO LUME] IN SERUM OR PLASMA 56 40 - 150 02/26 Specimen Type: PLASMA No comment entered. Ordering Provider: LOYDA HAQUE Report Released Date/Time: Feb 26, 2023 02:13 PM Reporting Lab: [facility] [address] Performing Lab: [facility] [address] [facility] COMPREHEN SIVE METABOLIC PANEL+MG ALANINE AMINOTRANSF ERASE [ENZYMATIC ACTIVITY/VO LUME] IN SERUM OR PLASMA 30 02/26 Specimen Type: PLASMA No comment entered. Ordering Provider: LOYDA HAQUE Report Released Date/Time: Feb 26, 2023 02:13 PM Reporting Lab: [facility] [address] Performing Lab: [facility] [address] [facility] COMPREHEN SIVE METABOLIC PANEL+MG ASPARTATE AMINOTRANSF ERASE [ENZYMATIC ACTIVITY/VO LUME] IN SERUM OR PLASMA 28 02/26 Specimen Type: PLASMA No comment entered. Ordering Provider: LOYDA HAQUE Report Released Date/Time: Feb 26, 2023 02:13 PM Reporting Lab: [facility] [address] Performing Lab: [facility] [address] [facility] COMPREHEN SIVE METABOLIC PANEL+MG GLOMERULAR FILTRATION RATE/1.73 SQ M.PREDICTED [VOLUME RATE/AREA] IN SERUM, PLASMA OR BLOOD BY CREATININE- BASED FORMULA (CKD-EPI 2020) 60 02/26 Specimen Type: PLASMA No comment entered. Ordering Provider: LOYDA HAQUE Report Released Date/Time: Feb 26, 2023 02:13 PM Reporting Lab: [facility] [address] Performing Lab: [facility] [address] [facility] CBC & DIFF LEUKOCYTES [#/VOLUME] IN BLOOD BY AUTOMATED COUNT 9.74 4.0 - 11.0 02/26 Specimen Type: BLOOD Comment: Automated Differentia l Performed Ordering Provider: LOYDA HAQUE Report Released Date/Time: Feb 26, 2023 02:13 PM Reporting Lab: [facility] [address] Performing Lab: [facility] [address] [facility] CBC & DIFF ERYTHROCYTE S [#/VOLUME] IN BLOOD BY AUTOMATED COUNT 5.24 4.6 - 6.2 02/26 Specimen Type: BLOOD Comment: Automated Differentia l Performed Ordering Provider: LOYDA HAQUE Report Released Date/Time: Feb 26, 2023 02:13 PM Reporting Lab: [facility] [address] Performing Lab: [facility] [address] [facility] CBC & DIFF HEMOGLOBIN [MASS/VOLUM E] IN BLOOD 16.1 13.5 - 17.9 02/26 Specimen Type: BLOOD Comment: Automated Differentia l Performed Ordering Provider: LOYDA HAQUE Report Released Date/Time: Feb 26, 2023 02:13 PM Reporting Lab: [facility] [address] Performing Lab: [facility] [address] [facility] CBC & DIFF HEMATOCRIT [VOLUME FRACTION] OF BLOOD BY AUTOMATED COUNT 47.8 41 - 54 02/26 Specimen Type: BLOOD Comment: Automated Differentia l Performed Ordering Provider: LOYDA HAQUE Report Released Date/Time: Feb 26, 2023 02:13 PM Reporting Lab: [facility] [address] Performing Lab: [facility] [address] [facility] CBC & DIFF MCV [ENTITIC VOLUME] BY AUTOMATED COUNT 91.2 80 - 100 02/26 Specimen Type: BLOOD Comment: Automated Differentia l Performed Ordering Provider: LOYDA HAQUE Report Released Date/Time: Feb 26, 2023 02:13 PM Reporting Lab: [facility] [address] Performing Lab: [facility] [address] [facility] CBC & DIFF MCH [ENTITIC MASS] BY AUTOMATED COUNT 30.7 27 - 33 02/26 Specimen Type: BLOOD Comment: Automated Differentia l Performed Ordering Provider: LOYDA HAQUE Report Released Date/Time: Feb 26, 2023 02:13 PM Reporting Lab: [facility] [address] Performing Lab: [facility] [address] [facility] CBC & DIFF MCHC [MASS/VOLUM E] BY AUTOMATED COUNT 33.7 32.0 - 37.5 02/26 Specimen Type: BLOOD Comment: Automated Differentia l Performed Ordering Provider: LOYDA HAQUE Report Released Date/Time: Feb 26, 2023 02:13 PM Reporting Lab: [facility] [address] Performing Lab: [facility] [address] [facility] CBC & DIFF PLATELETS [#/VOLUME] IN BLOOD BY AUTOMATED COUNT 222 150 - 400 02/26 Specimen Type: BLOOD Comment: Automated Differentia l Performed Ordering Provider: LOYDA HAQUE Report Released Date/Time: Feb 26, 2023 02:13 PM Reporting Lab: [facility] [address] Performing Lab: [facility] [address] [facility] CBC & DIFF PLATELET MEAN VOLUME [ENTITIC VOLUME] IN BLOOD BY AUTOMATED COUNT 10.7 7.4 - 10.4 02/26 H Specimen Type: BLOOD Comment: Automated Differentia l Performed Ordering Provider: LOYDA HAQUE Report Released Date/Time: Feb 26, 2023 02:13 PM Reporting Lab: [facility] [address] Performing Lab: [facility] [address] [facility] CBC & DIFF NEUTROPHILS /100 LEUKOCYTES IN BLOOD BY MANUAL COUNT 51.4 02/26 Specimen Type: BLOOD Comment: Automated Differentia l Performed Ordering Provider: LOYDA HAQUE Report Released Date/Time: Feb 26, 2023 02:13 PM Reporting Lab: [facility] [address] Performing Lab: [facility] [address] [facility] CBC & DIFF LYMPHOCYTES /100 LEUKOCYTES IN BLOOD BY MANUAL COUNT 35.8 02/26 Specimen Type: BLOOD Comment: Automated Differentia l Performed Ordering Provider: LOYDA HAQUE Report Released Date/Time: Feb 26, 2023 02:13 PM Reporting Lab: [facility] [address] Performing Lab: [facility] [address] [facility] CBC & DIFF MONOCYTES/1 00 LEUKOCYTES IN BLOOD BY AUTOMATED COUNT 10.7 02/26 Specimen Type: BLOOD Comment: Automated Differentia l Performed Ordering Provider: LOYDA HAQUE Report Released Date/Time: Feb 26, 2023 02:13 PM Reporting Lab: [facility] [address] Performing Lab: [facility] [address] [facility] CBC & DIFF EOSINOPHILS /100 LEUKOCYTES IN BLOOD BY AUTOMATED COUNT 1.3 02/26 Specimen Type: BLOOD Comment: Automated Differentia l Performed Ordering Provider: LOYDA HAQUE Report Released Date/Time: Feb 26, 2023 02:13 PM Reporting Lab: [facility] [address] Performing Lab: [facility] [address] [facility] CBC & DIFF BASOPHILS/1 00 LEUKOCYTES IN BLOOD BY MANUAL COUNT 0.5 02/26 Specimen Type: BLOOD Comment: Automated Differentia l Performed Ordering Provider: LOYDA HAQUE Report Released Date/Time: Feb 26, 2023 02:13 PM Reporting Lab: [facility] [address] Performing Lab: [facility] [address] [facility] CBC & DIFF ERYTHROCYTE DISTRIBUTIO N WIDTH [RATIO] BY AUTOMATED COUNT 13.3 11.5 - 14.5 02/26 Specimen Type: BLOOD Comment: Automated Differentia l Performed Ordering Provider: LOYDA HAQUE Report Released Date/Time: Feb 26, 2023 02:13 PM Reporting Lab: [facility] [address] Performing Lab: [facility] [address] [facility] CBC & DIFF LYMPHOCYTES [#/VOLUME] IN BLOOD BY AUTOMATED COUNT 3.49 1.0 - 4.0 02/26 Specimen Type: BLOOD Comment: Automated Differentia l Performed Ordering Provider: LOYDA HAQUE Report Released Date/Time: Feb 26, 2023 02:13 PM Reporting Lab: [facility] [address] Performing Lab: [facility] [address] [facility] CBC & DIFF MONOCYTES [#/VOLUME] IN BLOOD BY AUTOMATED COUNT 1.04 0.1 - 1.0 02/26 H Specimen Type: BLOOD Comment: Automated Differentia l Performed Ordering Provider: LOYDA HAQUE Report Released Date/Time: Feb 26, 2023 02:13 PM Reporting Lab: [facility] [address] Performing Lab: [facility] [address] [facility] CBC & DIFF NEUTROPHILS [#/VOLUME] IN BLOOD BY AUTOMATED COUNT 5.00 2.0 - 7.7 02/26 Specimen Type: BLOOD Comment: Automated Differentia l Performed Ordering Provider: LOYDA HAQUE Report Released Date/Time: Feb 26, 2023 02:13 PM Reporting Lab: [facility] [address] Performing Lab: [facility] [address] [facility] CBC & DIFF EOSINOPHILS [#/VOLUME] IN BLOOD BY AUTOMATED COUNT 0.13 0 - 0.5 02/26 Specimen Type: BLOOD Comment: Automated Differentia l Performed Ordering Provider: LOYDA HAQUE Report Released Date/Time: Feb 26, 2023 02:13 PM Reporting Lab: [facility] [address] Performing Lab: [facility] [address] [facility] CBC & DIFF BASOPHILS [#/VOLUME] IN BLOOD BY AUTOMATED COUNT 0.05 0 - 0.2 02/26 Specimen Type: BLOOD Comment: Automated Differentia l Performed Ordering Provider: LOYDA HAQUE Report Released Date/Time: Feb 26, 2023 02:13 PM Reporting Lab: [facility] [address] Performing Lab: [facility] [address] [facility] CBC & DIFF IG(META,MYE LO,PRO) 0.3 02/26 Specimen Type: BLOOD Comment: Automated Differentia l Performed Ordering Provider: LOYDA HAQUE Report Released Date/Time: Feb 26, 2023 02:13 PM Reporting Lab: [facility] [address] Performing Lab: [facility] [address] [facility] CBC & DIFF IMMATURE GRANULOCYTE S [PRESENCE] IN BLOOD BY AUTOMATED COUNT 0.03 0 - 0.1 02/26 Specimen Type: BLOOD Comment: Automated Differentia l Performed Ordering Provider: LOYDA HAQUE Report Released Date/Time: Feb 26, 2023 02:13 PM Reporting Lab: [facility] [address] Performing Lab: [facility] [address] [facility] MICROALBU MIN/CREAT ININE RATIO URINE CREATININE [MASS/VOLUM E] IN URINE 115.4 58.0 - 161.0 02/22 Specimen Type: URINE Comment: Urine microalbumi n <5 mg/L, unable to calculate ratio Ordering Provider: WONG MERCER Report Released Date/Time: Feb 22, 2022 01:37 PM Reporting Lab: [facility] [address] Performing Lab: [facility] [address] [facility] MICROALBU MIN/CREAT ININE RATIO URINE MICROALBUMI N/CREATININ E [MASS RATIO] IN URINE canc <29.9 - 29.9 02/22 Specimen Type: URINE Comment: Urine microalbumi n <5 mg/L, unable to calculate ratio Ordering Provider: WONG MERCER Report Released Date/Time: Feb 22, 2022 01:37 PM Reporting Lab: [facility] [address] Performing Lab: [facility] [address] [facility] MICROALBU MIN/CREAT ININE RATIO URINE MICROALBUMI N [MASS/VOLUM E] IN URINE <5.0 <29.9 - 29.9 02/22 Specimen Type: URINE Comment: Urine microalbumi n <5 mg/L, unable to calculate ratio Ordering Provider: WONG MERCER Report Released Date/Time: Feb 22, 2022 01:37 PM Reporting Lab: [facility] [address] Performing Lab: [facility] [address] [facility] Vital Signs Combined list of inpatient and outpatient Vital Signs from Department of Defense and Veterans Affairs, ranging from 12 months to all on record, depending upon the facility. Vital Sign Value Date Comments Source SYSTOLIC BLOOD PRESSURE 124 03/11/2023 10:40:46 [facility] DIASTOLIC BLOOD PRESSURE 82 03/11/2023 10:40:46 [facility] PULSE OXIMETRY 98% 03/11/2023 10:40:46 [facility] WEIGHT 194.9 03/11/2023 10:40:46 [facility] BMI 29kg/m2 03/11/2023 10:40:46 [facility] PAIN 3 03/11/2023 10:40:46 [facility] TEMPERATURE 98.4 03/11/2023 10:40:46 [facility] PULSE 93 03/11/2023 10:40:46 [facility] RESPIRATION 17 03/11/2023 10:40:46 [facility] SYSTOLIC BLOOD PRESSURE 110 02/26/2023 13:42:15 [facility] DIASTOLIC BLOOD PRESSURE 75 02/26/2023 13:42:15 [facility] PULSE OXIMETRY 95% 02/26/2023 13:42:15 [facility] WEIGHT 191 02/26/2023 13:42:15 [facility] BMI 29kg/m2 02/26/2023 13:42:15 [facility] PAIN 4 02/26/2023 13:42:15 [facility] HEIGHT 68.5 02/26/2023 13:42:15 [facility] TEMPERATURE 97.9 02/26/2023 13:42:15 [facility] PULSE 89 02/26/2023 13:42:15 [facility] RESPIRATION 16 02/26/2023 13:42:15 [facility] Encounters Combined list of: 1) Encounters from Department of Veterans Affairs facilities going back up to thelast 18 months. 2) Encounters from the Department of Defense facilities going back up to 280 months. Location Location Details Encounter Type Encounter Number Reason For Visit Attending Provider ADM Date DC Date Status Disposition Source [facility] [id number] Notes Entered by: Merritt ELIAS 29 Jul 2012 1515 ------- ------- ------- ------- -- Record review for HERONS BERHANE Bah 07/29 Released w/o Limitations OLIV[facility] Kebede([facility]) [facility] OUTPATIENT [id number] Notes Entered by: AMANDA DE JESUS 25 Sep 2012 1144 ------- ------- ------- ------- -- [facility] Evaluat AMANDA Benjamin 09/25 Released with Work/Duty Limitations OLIVA Kebede([facility]) [facility]ebede([facility]) OUTPATIENT [id number] [facility] 12/06 Released with Work/Duty Limitations [facility]IV[facility] Kebede([facility] ) [facility] OUTPATIENT [id number] Notes Entered by: Grady MURPHY 15 Dec 2012 1527 ------- ------- ------- ------- -- RASHAUN WINTERS 12/15 Released with Work/Duty Limitations OLIVA Kebede([facility] Eval[facility] ion [facility]) [facility] [facility] Outpatient Encounter [id number] 05/02 ALESSANDRO BLACKMAN [facility] [place] [facility] Outpatient Encounter [id number] 05/02 [place] [facility] [place] [facility] Outpatient Encounter [id number] 05/10 [place] [facility] [place] [facility] HC PRO PHONE CALL 5-10 MIN [id number] Diagnos is: ICD-10- CM G89.29 Other chronic pain
RYNE RAHMAN L 05/21 [place] 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
YOVANA AHUMADADEIDRE L 05/22 [facility] OFFICE O/P EST LOW 20-29 MIN [id number] Diagnos is: ICD-10- CM M25.519 Pain in unspeci fied shoulde r
Mckenzie HAQUE L 06/01 [facility] [place] [facility] Outpatient Encounter [id number] 06/29 [place] [facility] [place] [facility] Outpatient Encounter [id number] 06/29 [place] [facility] [place] [facility] OFFICE O/P EST MOD 30-39 MIN [id number] Diagnos is: ICD-10- CM M25.519 Pain in unspeci fied shoulde r
TESSIE PHAM 07/04 [place] [facility] [place] [facility] Outpatient Encounter [id number] 08/15 [place] [facility] [place] [facility] Outpatient Encounter [id number] 08/17 [place] 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
Uriel SANTIZO 08/20 [place] [facility] [place] [facility] LIDOCAINE INJECTION [id number] Diagnos is: ICD-10- CM M25.511 Pain in right shoulde r
TARIK PINON 08/24 [place] [facility] [place] [facility] Outpatient Encounter [id number] 08/24 [place] [facility] [place] [facility] Outpatient Encounter [id number] 08/29 [facility] [place] [facility] OFFICE O/P EST LOW 20-29 MIN [id number] Diagnos is: ICD-10- CM M25.519 Pain in unspeci fied shoulde r
VADIM PHAM MD 09/18 [facility] [place] [facility] Outpatient Encounter [id number] 10/05 [place] [facility] PT EVAL LOW COMPLEX 20 MIN [id number] Diagnos is: ICD-10- CM M25.512 Pain in left shoulde r
SA HAILEY DE LA O 10/09 [facility] [place] [facility] Outpatient Encounter [id number] 10/19 [place] [facility] [place] [facility] Outpatient Encounter [id number] 10/30 [place] [facility] [place] [facility] Outpatient Encounter [id number] 11/02 [place] [facility] SELF CARE MNGMENT TRAINING [id number] Diagnos is: ICD-10- CM M25.512 Pain in left shoulde r
SA HAILEY DE LA O 11/06 [facility] [place] [facility] Outpatient Encounter [id number] 12/05 [place] [facility] [place] [facility] Outpatient Encounter [id number] 12/05 [place] [facility] [place] [facility] Outpatient Encounter [id number] 12/31 [place] [facility] [place] [facility] Outpatient Encounter [id number] 01/01 [place] [facility] [place] [facility] Outpatient Encounter [id number] LIZZIE BRANNON R 01/21 [place] 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
Uriel SANTIZO 02/25 [facility] OFFICE O/P EST MOD 30-39 MIN [id number] Diagnos is: ICD-10- CM Z00.8 Encount er for other general examina tion
Mckenzie HAQUE 02/[address] 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
Uriel SANTIZO 03/11 [facility] [place] [facility] Outpatient Encounter [id number] 03/11 [facility] [place] [facility] OFF/OP CNSLTJ NEW/EST MOD 40 [id number] Diagnos is: ICD-10- CM M20.21 Hallux rigidus , right foot
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<b r/> EM SILVER 04/08 [facility] [place] [facility] Outpatient Encounter [id number] 05/15 [facility] [place] [facility] Outpatient Encounter [id number] 07/19 [facility] [place] [facility] Outpatient Encounter [id number] ELIZABETH TAVERA A 07/24 [facility] [place] [facility] Outpatient Encounter [id number] SHARI MOREL A 08/05 [place] [facility] [place] [facility] Outpatient Encounter [id number] 08/08 [place] [facility] [place] [facility] Outpatient Encounter [id number] 08/09 [facility] [place] [facility] Outpatient Encounter [id number] 08/12 [facility] Out[facility] Encounter [id number] 08/15 [facility] [place] [facility] Outpatient Encounter [id number] 08/19 [place] [facility] [place] [facility] OFFICE O/P EST MOD 30-39 MIN [id number] Diagnos is: ICD-10- CM M25.512 Pain in left shoulde r
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
Uriel SANTIZO 09/23 [facility] [place] [facility] Outpatient Encounter [id number] 09/24 [facility] [place] [facility] Outpatient Encounter [id number] 09/25 [facility] [place] [facility] OFFICE O/P EST MOD 30 MIN [id number] Diagnos is: ICD-10- CM M25.512 Pain in left shoulde r
VADIM PHAM MD 10/01 [facility] SELF CARE MNGMENT TRAINING [id number] Diagnos is: ICD-10- CM M25.512 Pain in left shoulde r
VIRGIL GRIER 10/04 [facility] Procedures Combined list of: 1) Procedures from Department of Veterans Affairs facilities going back up to thelast 18 months, not all [place] non-surgical procedures are included; 2) All procedures from the Department of Defense facilities. Procedure Procedure Type Code Date Perfomer Comments Sourc e PSYCHIATRIC EVALUATION OF HOSPITAL RECORDS, OTHER PSYCHIATRIC REPORTS, PSYCHOMETRIC AND/OR PROJECTIVE TESTS, AND OTHER ACCUMULATED DATA FOR MEDICALDIAGNOSTIC PURPOSES 12/05/2012 [facility] Social History Combined list of available smoking, tobacco, and other social history from Department of Defense and Veterans Affairs facilities. 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 02/17/2018 [facility] History of tobacco use LIFETIME NON-TOBA AUTOMOTIVE 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 [facility] Plan of Care List of future care activities from [facility] facilities. Additional future care activities may be listed in the Assessment and Plan section. Date/Time Care Activity Care Activity Detail Facili ty 10/14/2023 AMBULATORY - REHAB MEDICINE AMBULATORY - REHAB MEDICINE [facility]
--- OUTSIDE RECORDS SUMMARY | 2023-10-11 15:46 | XMS_ITS | Encounter Summary ---
Author Name Department of Vetera Affairs Organization [facility] of [facility] Address [address] [place] [address] Support Name Relationship Address Phone MELQUIADES TAYLOR Next of Kin [address] [place] [address] MELQUIADES TAYLOR Emergency Contact [address] [place] [address] Insurance Providers: All historical and [...] PART A January 01, 2016 PART A [id number] [phone] DUSTIN TAYLOR JR PATIENT MEDICARE (WNR) MEDICARE (M) PART B January 01, 2016 PART B [id number] [phone] DUSTIN TAYLOR JR PATIENT Selected Encounter This section includes the information on record at PA for the Encounter. Date/Time Encounter Type Encounter Description Reason Pro vider Source Oct 30, 2022 08:33 AM Outpatient Encounter PHYSICAL THERAPY IHE Encounter Template Text not used by PA Plan of Treatment: Future Appointments (+ 6 months) and Future Tests (+/- 45 days) The Plan of Treatment section includes future care activities for the patient from all PA treatmentfacilities. This section includes future appointments and future orders which are active, pending or scheduled. Future Appointments This section includes appointments that were scheduled to occur 6 months from the date of the Encounter, up to a maximum of 20 appointments. The data comes from all PA treatment facilities. Appointment Date/Time Appointment Type Appointme nt Facility Name Nov 06, 2022 11:30 AM AMBULATORY - [facility]AB [facility] Feb 18, 2023 01:30 PM AMBULATORY - NONE [facility] Feb 25, 2023 01:00 PM AMBULATORY - REHAB MEDICIN E [facility] Feb 26, 2023 01:30 PM [facility]ORY [facility]ICINE [facility] Mar 11, 2023 11:00 AM AMBULATORY - REHAB MEDICIN E [facility] Mar 28, 2023 10:00 AM AMBULATORY - NONE [facility] Mar 28, 2023 10:30 AM [facility] Apr 08, 2023 10:00 AM AMBULATORY - NONE [facility] Social History: Smoking Status (Most current) and Tobacco Use (All prior to encounter date) This section includes the most current, and the historical, smoking and tobacco- related health factors from the PA facility where the Encounter took place. Current Smoking Status This section includes the most current smoking, or tobacco-related health factor, from the PA facility where the Encounter took place. Date/Time Current Smoking Status Comment Shayne alston Nov 20, 2016 09:03 AM LIFETIME NON-TOBACCO USER [facility] Tobacco Use History This section includes a history of the smoking, or tobacco-related health factors, that were collected on or before the date of the Encounter. The data comes from the PA facility where the Encounter took place. Date/Time Smoking Status/Tobacco Use Comment Will acility Jun 29, 2016 07:34 AM INPT NO TOBACCO USE IN LAST 30 D AYS [facility] Dec 12, 2015 12:47 PM LIFETIME NON-TOBACCO USER [facility] Dec 28, 2014 12:34 PM LIFETIME NON-TOBACCO USER [facility] Jul 08, 2012 07:40 AM LIFETIME NON-TOBACCO USER [facility] Encounter Notes: All associated encounter notes This section contains the clinical notes associated to the Encounter. Date/Time Encounter Note(s) Provider Source Oct 30, 2022 08:34 AM REPORT OF CONTACT: LOCAL TITLE: APPOINTMENT SCHEDULING NOTE STANDARD TITLE: REPORT OF CONTACT DATE OF NOTE: OCT 30, 2022@08:34 ENTRY DATE: OCT 30, 2022@08:34:27 AUTHOR: MELQUIADES MOLINA COSIGNER: URGENCY: STATUS: COMPLETED Attempted to schedule Cancellation Clinic cancellation Contact attempt made to 1st attempt Telephone Left message on voice mail to call back to this number [phone] Appointment on 10/30 in [facility] 89 F2F needs to be rescheduled due to provider leave. Please have patient speak with Lead. /mindy/ MELQUIADES MOLINA Lead JOSE Signed: 10/30/2022 08:36 MELQUIADES MOLINA OC
--- OUTSIDE RECORDS SUMMARY | 2023-10-11 15:46 | XMS_ITS | Encounter Summary ---
Author Name Department of Vetera Affairs Organization [facility] Address [address] [place] [address] Support Name Relationship Address Phone MELQUIADES TAYLOR Next of Kin [address] [place] [address] MELQUIADES TAYLOR Emergency Contact [address] [place] [address] Insurance Providers: All historical and [...] Policy Haque MEDICARE (WNR) MEDICARE (M) PART B January 01, 2016 PART B [id number] [phone] DUSTIN TAYLOR JR PATIENT MEDICARE (WNR) MEDICARE (M) PART A January 01, 2016 PART A [id number] [phone] DUSTIN TAYLOR JR PATIENT Selected Encounter This section includes the information on record at ID for the Encounter. Date/Time Encounter Type Encounter Description Reason Pro vider Source Oct 19, 2022 12:00 AM Outpatient Encounter COMMUNITY CARE CONSULT IHE Encounter Template Text not used by ID Plan of Treatment: Future Appointments (+ 6 months) and Future Tests (+/- 45 days) The Plan of Treatment section includes future care activities for the patient from all ID treatmentfacilities. This section includes future appointments and future orders which are active, pending or scheduled. Future Appointments This section includes appointments that were scheduled to occur 6 months from the date of the Encounter, up to a maximum of 20 appointments. The data comes from all ID treatment facilities. Appointment Date/Time Appointment Type Appointme nt Facility Name Nov 06, 2022 11:30 AM AMBULATORY - [facility] Feb 18, 2023 01:30 PM AMBULATORY - NONE [facility] Feb 25, 2023 01:00 PM AMBULATORY - REHAB MEDICIN E [facility] Feb 26, 2023 01:30 PM [facility]ORY [facility] Mar 11, 2023 11:00 AM AMBULATORY - REHAB MEDICIN E [facility] Mar 28, 2023 10:00 AM AMBULATORY - NONE [facility] Mar 28, 2023 10:30 AM [facility] Apr 08, 2023 10:00 AM AMBULATORY - NONE [facility] Social History: Smoking Status (Most current) and Tobacco Use (All prior to encounter date) This section includes the most current, and the historical, smoking and tobacco- related health factors from the [facility] where the Encounter took place. Current Smoking Status This section includes the most current smoking, or tobacco-related health factor, from the ID facility where the Encounter took place. Date/Time Current Smoking Status Comment Shayne alston Nov 20, 2016 09:03 AM LIFETIME NON-TOBACCO USER [facility] Tobacco Use History This section includes a history of the smoking, or tobacco-related health factors, that were collected on or before the date of the Encounter. The data comes from the ID facility where the Encounter took place. Date/Time Smoking Status/Tobacco Use Comment F acility Jun 29, 2016 07:34 AM INPT NO TOBACCO USE IN LAST [address] [facility] Dec 12, 2015 12:47 PM LIFETIME NON-TOBACCO USER [facility] Dec 28, 2014 12:34 PM LIFETIME NON-TOBACCO USER [facility] Jul 08, 2012 07:40 AM LIFETIME NON-TOBACCO USER [facility] Encounter Notes: All associated encounter notes This section contains the clinical notes associated to the Encounter. Date/Time Encounter Note(s) Provider Source Oct 19, 2022 12:00 AM NONVA CONSULT: LOCAL TITLE: COMMUNITY CARE CONSULT RESULT CHIRIROPRACTIC STANDARD TITLE: NONVA CONSULT DATE OF NOTE: OCT 19, 2022 ENTRY DATE: OCT 26, 2022@09:50:45 AUTHOR: SKYLER DEE COSIGNER: URGENCY: STATUS: COMPLETED [facility] - Scanned Document [facility] APPOINTMENT INFORMATION Documentation received from non-VA provider and scanned into [employer]. /mindy/ RPA PROCESS Signed: 10/26/2022 09:50 PROCESS,SKYLER [facility]
--- OUTSIDE RECORDS SUMMARY | 2023-10-11 15:46 | XMS_ITS | Encounter Summary ---
Author Name [facility] Organization Department of [facility] Address [address] [place] [address] Support Name Relationship Address Phone MELQUIADES TAYLOR Next of Kin [address] [place] [address] MELQUIADES TAYLOR Emergency Contact [address] [place] [address] Insurance Providers: All historical and [...] PART A January 01, 2016 PART A [id number] [phone] UDSTIN TAYLOR JR PATIENT MEDICARE (WNR) MEDICARE (M) PART B January 01, 2016 PART B [id number] DUSTIN TAYLOR JR PATIENT Selected Encounter This section includes the information on record at [place] for the Encounter. Date/Time Encounter Type Encounter Description Reason Provider Source Oct 04, 2023 02:30 PM SELF CARE MNGMENT TRAINING PHYSICAL THERAPY ICD-10-CM M25.512 Pain in left shoulder RL GRIER E Encounter Template Text not used by [facility] Assessments - Encounter Diagnoses This section includes the primary and secondary diagnoses documented for the Encounter. Date/Time Primary/Secondary Diagnosis Diagnosis Name Provider Source Oct 04, 2023 03:32 PM PRIMARY Pain in left shoulder RL GRIER [facility] Plan of Treatment: Future Appointments (+ 6 months) and Future Tests (+/- 45 days) The Plan of Treatment section includes future care activities for the patient from all [place] treatmentfacilities. This section includes future appointments and future orders which are active, pending or scheduled. Future Appointments This section includes appointments that were scheduled to occur 6 months from the date of the Encounter, up to a maximum of 20 appointments. The data comes from all [facility]. Appointment Date/Time Appointment Type Appointme nt Facility Name Oct 14, 2023 11:30 AM AMBULATORY - REHAB MEDICIN E [facility] Oct 25, 2023 11:30 AM AMBULATORY - REHAB MEDICIN E [facility] Oct 31, 2023 01:00 PM AMBULATORY - NONE [facility] Nov 01, 2023 02:00 PM AMBULATORY - NONE [facility] 2023 09:00 AM AMBULATORY - REHAB MEDICIN E [facility] Feb 26, 2024 01:30 PM AMBULATORY - [...] of theEncounter. The data comes from all [facility]. Test Date/Time Test Type Test Details Facility Name Aug 30, 2023 02:56 PM Consult Order SLEEP APNE A CLINIC OUTPT Cons Wh[facility] [facility] Oct 31, 2023 12:00 AM Laboratory - Chemi stry Order TESTOSTERONE SERUM SP ONCE [facility] Oct 31, 2023 12:00 AM Laboratory - Chemi stry Order CBC BLOOD SP ONCE [facility] Social History: Smoking Status (Most current) and Tobacco Use (All prior to encounter date) This section includes the most current, and the historical, smoking and tobacco- related health factors from the SC facility where the Encounter took place. Current Smoking Status This section includes the most current smoking, or tobacco-related health factor, from the [place] facility where the Encounter took place. Date/Time Current Smoking Status Comment Facil ity Nov 20, 2016 09:03 AM LIFETIME NON-TOBACCO USER [facility] Tobacco Use History This section includes a history of the smoking, or tobacco-related health factors, that were collected on or before the date of the Encounter. The data comes from the [place] facility where the Encounter took place. Date/Time Smoking Status/Tobacco Use Comment F acility Jun 29, 2016 07:34 AM INPT NO TOBACCO USE IN LAST [address] [facility] Dec 12, 2015 12:47 PM LIFETIME NON-TOBACCO USER [facility] Dec 28, 2014 12:34 PM LIFETIME NON-TOBACCO USER [facility] Jul 08, 2012 07:40 AM LIFETIME NON-TOBACCO USER [facility] Radiology Reports: +/- 30 days of the [...] the Encounter. The data comes from all [facility] facilities. Date/Time Radiology Report Provider Source Oct 01, 2023 12:22 PM SHOULDER LEFT 4V(AP,Y VIEW, GRASHEY & AXILLARY): DUSTIN TAYLOR [id number] -1970 M Exm Date: OCT 01, 2023@12:22 Req Phys: BARYON PHAM MD Pat Loc: [facility] MD PHAM (Req'g Loc Img Loc: MAIN X-RAY Service: Unknown (Case [id number] COMPLETE) SHOULDER LEFT 4V(AP,Y VIEW, GRASH(RAD Detailed) CPT:33064 Proc Modifiers : LEFT Reason for Study: Pain Clinical History: IS NOT under investigation for COVID-19 or is COVID-19 negative Pain Responsible provider name and phone number to notify for critical findings if other than user placing the order and pager listed below: User placing orders pager: LAST CREATININE 1.4 H (02/26/23) Report Status: Verified Date Reported: OCT 01, 2023 Date Verified: OCT 01, 2023 Cosmetics Counter Manager E-Sig:/ES/SARA BROWNE MD Report: DATE/TIME REGISTERED: 10/01/2023 [...] Primary Interpreting Staff: SARA BROWNE MD, RADIOLOGIST (Cosmetics Counter Manager) /[facility] Oct 01, 2023 06:51 AM MRI SHOULDER LEFT (P): DUSTIN TAYLOR [id number] -1970 M Exm Date: OCT 01, 2023@06:51 Req Phys: BAYRON PHAM MD Pat Loc: [facility] (Req'g Loc Img Loc: MRI IMAGING Service: Unknown (Case [id number] COMPLETE) MRI SHOULDER LEFT W/O CONTRAST (MRI Detailed) CPT:57384 Reason for Study: Eval rotator cuff Clinical [...] 01, 2023 Date Verified: OCT 01, 2023 Cosmetics Counter Manager E-Sig:/ES/NEGRITA HART MD Report: Exam: MRI SHOULDER [...] Primary Interpreting Staff: NEGRITA HART MD, RADIOLOGIST (Cosmetics Counter Manager) /NEGRITA MATSON [facility] Encounter Notes: All associated encounter notes This section contains the clinical notes associated to the Encounter. Date/Time Encounter Note(s) Provider Source Oct 04, 2023 10:50 AM PHYSICAL THERAPY C ONSULT: LOCAL TITLE: PHYSICAL THERAPY CONSULT STANDARD TITLE: PHYSICAL THERAPY CONSULT DATE OF NOTE: OCT 04, 2023@10:50 ENTRY DATE: OCT 04, 2023@10:50:40 AUTHOR: RL GRIER COSIGNER: URGENCY: STATUS: COMPLETED PT tx: PT eval 20', ther ex 15', self care management 25' PT dx: left shoulder pain # of VISITS:1 # of CX/NS: 3 Informed consent received prior to consult/treatment. SUBJECTIVE Chief Concern: Patient is a 52 year old man referred to PT due to left severe scapular dyskinesia. Recent MRI confirms full thickness RCT of supraspinatus and medially subluxing LHBT. Patient stated he did not attend PT earlier as he wanted to wait for imaging to be completed first. Relevant PMH: backache OA major depressive disorder generalized anxiety disorder rupture of tendon of biceps chronic pain insomnia prediabetes Aggravating factors: raising arm up, out to the side, away from body Easing factors: keeping arm close to body and moving very slow and in only certain movement patterns Patient goals for therapy: wants to get back to working out in the gym Daily activities/health habits Work: retired Leisure activities: machine weights in the gym (h/o back surgery and needs to avoid compressive spinal load) Previous intervention: PT in the past after distal biceps tendon rupture repair Pain: did not rate on VAS Pain location: anterior/lateral shoulder down to upper forearm Red Flags: No personal history of cancer. Denies any UE or LE progressive weakness, unexplained weight loss, loss of bowel/bladder control, pain with rest, fevers, chills, infections OBJECTIVE Baseline PROMIS Pain Interference 6b PROMIS Pain Interference - short form 6b In the past 7 days... How much did pain interfere with your enjoyment of life? Quite a bit (4) How much did pain interfere with your ability to concentrate? Quite a bit (4) How much did pain interfere with your day to day activities? Quite a bit (4) How much did pain interfere with your enjoyment of recreational activities? Very much (5) How much did pain interfere with doing your tasks away from home (e.g., getting groceries, running errands)? Quite a bit (4) How often did pain keep you from socializing with others? Sometimes (3) Total RAW Score: 24 RAW SCORE CONVERSION TO T-SCORE: T-score value indicates how score relates to normative samples (a standardized score with a mean of 50 and a standard deviation (SD)of 10). T-Scores >=60 indicate patient is outside the normal range, being 1+ SD worse than average. --- RAW T-SCORE RAW T-SCORE 6 41 19 62.7 7 48.5 20 63.6 8 50.8 21 64.5 9 52.5 22 65.5 10 53.8 23 66.4 11 55 24 67.4 12 56.1 25 68.5 13 57.1 26 69.6 14 58.1 27 70.9 15 59.1 28 72.4 16 60 29 74.4 17 60.9 30 78.3 18 61.8 T-Score: 67.4 IMAGING MRI SHOULDER LEFT W/O CONTRAST Proc Ord: MRI SHOULDER LEFT (P) Exm Date: OCT 01, 2023@06:51 Req Phys: BAYRON PHAM MD Impression: 1. Full-thickness tearing of the majority of the anterior to posterior width of the supraspinatus tendon with tendon retraction by 1.2 cm. The tearing has progressed compared to 2021 MRI arthrogram. 2. Mild distal subscapularis tendinopathy [...] Primary Interpreting Staff: NEGRITA HART MD, RADIOLOGIST OBSERVATION/POSTURE: muscular build, overactive UT; abducted left scapula and downwardly rotated CERVICAL SCREEN: (-) for reproducing shoulder symptoms SHOULDER AROM: Flexion(180): full (when moves very slowly/deliberately) Extension(45):30 Abduction(180): 150 Ext Rotation(90): WFL Int Rotation(70): thumb to L5 SHOULDER STRENGTH/MMT:(__/5)in ROM available Flexion: 5/5 Extension: 5/5 Abduction: pain 4/5 Ext Rotation: pain 4/5 Int Rotation: pain 4/5 NEUROMUSCULAR/SCAPULAR CONTROL: able to retract with cues PALPATION: ttp LHBT JOINT PLAY: PROM left shoulder limited tolerance for testing due to anterior shoulder pain; ~ 150 flexion with pain elevating/lowering, ~150 abduction SPECIAL TESTS Impingement Pathologies Bear-Sergei test: (+) Neer's Sign: (+) Cross-body adduction: (+) Rotator cuff integrity Drop arm(sup/infraspinatus) unable to tolerate testing position External Rotation lag: (-) PT INTERVENTIONS ther ex: HEP: prone scap squeeze -> UE extension 5 hold x10; increased time for cues on sequence to avoid compensatory strategies wall press plus for scap retraction/protraction with SA activation x12 trialed but not issued for home: side lying ER x12 0# (compensatory strategies UT/LS) supine SA punch (pain) wall slide AAROM x 3 (pain) CKC shoulder flexion AAROM 5 hold x 5 self care management: discussed need for improved scapula stabilization and improved scapula mechanics to facilitate more normalized shoulder mechanics discussed challenge between addressing scapula dyskinesia while avoiding provocative exercises for LHBT and RC discussed potential lengthily process to address chronic scapula dysfunction in presence of easily symptomatic RC/LHBT discussed PT rehab timeline if he had surgery; benefit of improving scapula dysfunction prior to surgery if possible (improved outcome) home exercise program: declined need for printout response to treatment: symptoms easily aggravated for both scapula dysfunction and tendon pain patient participation/motivation this date: receptive for PT GOALS: Patient's Goal: 1. Patient will be able to return to reaching overhead with improved AROM and scapula control in 8 weeks in order to have an improved quality of life. 2. Patient will be able to reaching out to the side with improved AROM and scapula control in 8 weeks in order to have an improved quality of life. 3. Pt will be I in HEP for self-management of shoulder pain in 8 weeks. ASSESSMENT: Patient is a 52 year old man presenting to PT for left shoulder pain. He demonstrated the following impairments reduced AROM, reduced PROM, reduced functional strength, pain, and significant scapula dysfunction which result in the following functional limitations reduced functional reaching away from body, out to the side and overhead effecting his ability to perform ADLs, unable to lift/carry items due to shoulder pain and unable to attend the gym. Complex shoulder presentation due to chronic scapula dysfunction with downwardly rotated scapula in presence of subluxing LHBT and full thickness RCT. He also has a h/o rebecca distal biceps tendon repair. Explained at length to PT to address impairments as symptoms tolerate. REHAB POTENTIAL: fair for above goals Clinical Presentation: Stable CLINICAL DECISION MAKING (complexity): low PLAN: PT 1x/week for 2 weeks then reassess frequency of PT needed. Next session trial Rock tape to anterior shoulder to decrease LHBT symptoms in addition to progressing HEP as tolerated Patient Education on Treatment Plan: Patient indicated readiness to learn, verbalizes understanding, agreement and satisfaction with the treatment plan. Denies further questions. /mindy/ RL GRIER DPT [facility] PHYSICAL THERAPIST Signed: 10/04/2023 15:[address] [facility]
--- OUTSIDE RECORDS SUMMARY | 2023-10-11 15:47 | XMS_ITS | Encounter Summary ---
Author Name Department of Vetera Affairs Organization Department of Vetera Affairs Address [address] [place] [address] Support Name Relationship Address Phone MELQUIADES TAYLOR Vicky Next of Kin [address] [place] [address] MELQUIADES TAYLOR Emergency Contact [phone] [place] [address] Insurance Providers: All historical and [...] PART A January 01, 2016 PART A [id number] [phone] DUSTIN TAYLOR JR PATIENT MEDICARE (WNR) MEDICARE (M) PART B January 01, 2016 PART B [id number] DUSTIN TAYLOR JR PATIENT Selected Encounter This section includes the information on record at [place] for the Encounter. Date/Time Encounter Type Encounter Description Reason Pro vider Source Nov 02, 2022 11:48 AM Outpatient Encounter COMMUNITY CARE CONSULT IHE Encounter Template Text not used by [place] Plan of Treatment: Future Appointments (+ 6 months) and Future Tests (+/- 45 days) The Plan of Treatment section includes future care activities for the patient from all [place] treatmentfacilities. This section includes future appointments and future orders which are active, pending or scheduled. Future Appointments This section includes appointments that were scheduled to occur 6 months from the date of the Encounter, up to a maximum of 20 appointments. The data comes from all [place] treatment facilities. Appointment Date/Time Appointment Type Appointme nt Facility Name Nov 06, 2022 11:30 AM AMBULATORY - [facility] Feb 18, 2023 01:30 PM AMBULATORY - NONE [facility] Feb 25, 2023 01:00 PM AMBULATORY - REHAB MEDICIN E [facility] Feb 26, 2023 01:30 PM [facility] Mar 11, 2023 11:00 AM AMBULATORY - REHAB MEDICIN E [facility] Mar 28, 2023 10:00 AM AMBULATORY - NONE [facility] Mar 28, 2023 10:30 AM AMBULATORY - SURGERY [facility] Apr 08, 2023 10:00 AM AMBULATORY - NONE [facility] Social History: Smoking Status (Most current) and Tobacco Use (All prior to encounter date) This section includes the most current, and the historical, smoking and tobacco- related health factors from the [facility] where the Encounter took place. Current Smoking Status This section includes the most current smoking, or tobacco-related health factor, from the [place] facility where the Encounter took place. Date/Time Current Smoking Status Comment Shayne alston Nov 20, 2016 09:03 AM LIFETIME NON-TOBACCO USER [facility] Tobacco Use History This section includes a history of the smoking, or tobacco-related health factors, that were collected on or before the date of the Encounter. The data comes from the [place] facility where the Encounter took place. Date/Time Smoking Status/Tobacco Use Comment F acility Jun 29, 2016 07:34 AM INPT NO TOBACCO USE IN LAST 30 D AYS [facility] Dec 12, 2015 12:47 PM LIFETIME NON-TOBACCO USER [facility] Dec 28, 2014 12:34 PM LIFETIME NON-TOBACCO USER [facility] Jul 08, 2012 07:40 AM LIFETIME NON-TOBACCO USER [facility] Encounter Notes: All associated encounter notes This section contains the clinical notes associated to the Encounter. Date/Time Encounter Note(s) Provider Source Nov 02, 2022 11:48 AM NONVA NOTE: LOCAL TITLE: COMMUNITY CARE-CARE COORDINATION PLAN NOTE STANDARD TITLE: NONVA NOTE DATE OF NOTE: NOV 02, 2022@11:48 ENTRY DATE: NOV 02, 2022@11:48:27 AUTHOR: LUNA WINSLOW COSIGNER: URGENCY: STATUS: COMPLETED calling because his Chiro care has used the allotted appts allowed on current authorization and he is not understanding why he cannot have more now. Registered Route Associate did her best to explain the why and how it works for this type of care. Registered Route Associate explained that before additional care can be authorized we need for the current auth to or be close to expiration and then a new consult can be placed since he is at pain mgmt. level, That allows for 8 visits over a 180 period. Essentially 1 visit a month with 2 additional to be used during that time frame. Registered Route Associate suggested he contact his provider to review and seek other possible alternatives to help between the interior plant caretaker. /mindy/ LUNA WINSLOW ADVANCED DRY CLEANER PRESSER Signed: 11/02/2022 11:55 LUNA WINSLOW [facility]
--- OUTSIDE RECORDS SUMMARY | 2023-10-11 15:47 | XMS_ITS | Encounter Summary ---
Author Name Department of Vetera Affairs Organization Department of Vetera Affairs Address [address] [place] [address] Support Name Relationship Address Phone MELQUIADES TAYLOR Next of Kin [address] [place] [address] MELQUIADES TAYLOR Emergency Contact [address] [place] [address] Insurance Providers: All historical and [...] PART A January 01, 2016 PART A [id number] [phone] DUSTIN TAYLOR JR PATIENT MEDICARE (WNR) MEDICARE (M) PART B January 01, 2016 PART B [id number] [phone] DUSTIN TAYLOR JR PATIENT Selected Encounter This section includes the information on record at [place] for the Encounter. Date/Time Encounter Type Encounter Description Reason Pro vider Source Dec 05, 2022 12:44 PM Outpatient Encounter TELEPHONE/MEDICINE E Encounter Template Text not used by [place] Plan of Treatment: Future Appointments (+ 6 months) and Future Tests (+/- 45 days) The Plan of Treatment section includes future care activities for the patient from all [place] treatmentfacilities. This section includes future appointments and future orders which are active, pending or scheduled. Future Appointments This section includes appointments that were scheduled to occur 6 months from the date of the Encounter, up to a maximum of 20 appointments. The data comes from all [place] treatment facilities. Appointment Date/Time Appointment Type Appointme nt Facility Name Feb 18, 2023 01:30 PM AMBULATORY - NONE [facility] Feb 25, 2023 01:00 PM AMBULATORY - REHAB MEDICIN [facility] Feb 26, 2023 01:30 PM [facility] Mar 11, 2023 11:00 AM AMBULATORY - REHAB MEDICIN E [facility] Mar 28, 2023 10:00 AM AMBULATORY - NONE [facility] Mar 28, 2023 10:30 AM [facility] Apr 08, 2023 10:00 AM AMBULATORY - NONE [facility] Social History: Smoking Status (Most current) and Tobacco Use (All prior to encounter date) This section includes the most current, and the historical, smoking and tobacco- related health factors from the [place] facility where the Encounter took place. Current Smoking Status This section includes the most current smoking, or tobacco-related health factor, from the [place] facility where the Encounter took place. Date/Time Current Smoking Status Comment Shayne alston Nov 20, 2016 09:03 AM LIFETIME NON-TOBACCO USER [facility] Tobacco Use History This section includes a history of the smoking, or tobacco-related health factors, that were collected on or before the date of the Encounter. The data comes from the [place] facility where the Encounter took place. Date/Time Smoking Status/Tobacco Use Comment F acility Jun 29, 2016 07:34 AM INPT NO TOBACCO USE IN LAST 30 D AYS [facility] Dec 12, 2015 12:47 PM LIFETIME NON-TOBACCO USER [facility] Dec 28, 2014 12:34 PM LIFETIME NON-TOBACCO USER [facility] Jul 08, 2012 07:40 AM LIFETIME NON-TOBACCO USER [facility] Encounter Notes: All associated encounter notes This section contains the clinical notes associated to the Encounter. Date/Time Encounter Note(s) Provider Source Dec 05, 2022 12:44 PM ACCOUNTING OF DISC LOSURES NOTE: LOCAL TITLE: STATE PRESCRIPTION DRUG MONITORING PROGRAM STANDARD TITLE: ACCOUNTING OF DISCLOSURES NOTE DATE OF NOTE: DEC 05, 2022@12:44:38 ENTRY DATE: DEC 05, 2022@12:44:38 AUTHOR: PANKAJ CHAUDHRY EXP COSIGNER: URGENCY: STATUS: COMPLETED This PDMP query was submitted by Pankaj Chaudhry MD. The clinical justification for this PDMP query is to review controlled substances prescribed outside of the [facility], and any additional information that may become available, as an important component of standard clinical care, and in accordance with [facility] policy. Patient information was shared with the PDMP [employer] [place]. No prescription(s) for controlled substances outside the [facility] were found in the last 90 days. /mindy/ PANKAJ CHAUDHRY M.D. STAFF MULTIPLE COIL WINDER Signed: 12/05/2022 12:44 PANKAJ CHAUDHRY [facility]
--- OUTSIDE RECORDS SUMMARY | 2023-10-11 15:47 | XMS_ITS | Encounter Summary ---
Author Name Department of Vetera Affairs Organization Department of Vetera ns Affairs Address [address] [place] [address] Support Name Relationship Address Phone MELQUIADES TAYLOR Next of Kin [address] [place] [address] MELQUIADES TAYLOR Emergency Contact [address] [place] [address] Insurance Providers: All historical and [...] PART A January 01, 2016 PART A [id number] [phone] DUSTIN TAYLOR JR PATIENT MEDICARE (WNR) MEDICARE (M) PART B January 01, 2016 PART B [id number] [phone] DUSTIN TAYLOR JR PATIENT Selected Encounter This section includes the information on record at [place] for the Encounter. Date/Time Encounter Type Encounter Description Reason Provider Source Nov 06, 2022 11:30 AM SELF CARE MNGMENT TRAINING PHYSICAL THERAPY ICD-10-CM M25.512 Pain in left shoulder ARIANA DE LA O Uriel Encounter Template Text not used by [facility] Assessments - Encounter Diagnoses This section includes the primary and secondary diagnoses documented for the Encounter. Date/Time Primary/Secondary Diagnosis Diagnosis Name Provider Source Nov 06, 2022 12:17 PM PRIMARY Pain in left shoulder ARIANA DE LA O CB Plan of Treatment: Future Appointments (+ 6 months) and Future Tests (+/- 45 days) The Plan of Treatment section includes future care activities for the [facility] This section includes future appointments and future orders which are active, pending or scheduled. Future Appointments This section includes appointments that were scheduled to occur 6 months from the date of the Encounter, up to a maximum of 20 appointments. The data comes from all [facility]. Appointment Date/Time Appointment Type Appointme nt Facility Name Feb 18, 2023 01:30 PM AMBULATORY - NONE [facility] Feb 25, 2023 01:00 PM AMBULATORY - [facility]IC[facility] Feb 26, 2023 01:30 PM [facility] - [facility]IC[facility] Mar 11, 2023 11:00 AM AMBULATORY - [facility] Mar 28, 2023 10:00 AM AMBULATORY - NONE [facility] Mar 28, 2023 10:30 AM AMBULATORY - SURGERY [facility] Apr 08, 2023 10:00 AM AMBULATORY - NONE [facility] Social History: Smoking Status (Most current) and Tobacco Use (All prior to encounter date) This section includes the most current, and the historical, smoking and tobacco- related health factors from the [place] facility where the Encounter took place. Current Smoking Status This section includes the most current smoking, or tobacco-related health factor, from the [place] facility where the Encounter took place. Date/Time Current Smoking Status Comment Shayne ity Feb 22, 2022 01:00 PM VA-TOBACCO NEVER USED [facility] Tobacco Use History This section includes a history of the smoking, or tobacco-related health factors, that were collected on or before the date of the Encounter. The data comes from the [place] facility where the Encounter took place. Date/Time Smoking Status/Tobacco Use Comment F acility Mar 20, 2021 11:00 AM VA-TOBACCO NEVER USED [facility] Feb 11, 2020 10:37 AM VA-TOBACCO NEVER USED [facility] Feb 24, 2019 02:07 PM VA-TOBACCO NEVER USED [facility] Feb 17, 2018 04:20 PM LIFETIME NON-TOBACCO USER [facility] Encounter Notes: All associated encounter notes This section contains the clinical notes associated to the Encounter. Date/Time Encounter Note(s) Provider Source Nov 06, 2022 05:35 AM PHYSICAL THERAPY N OTE: LOCAL TITLE: PT-PROGRESS NOTE STANDARD TITLE: PHYSICAL THERAPY NOTE DATE OF NOTE: NOV 06, 2022@05:35 ENTRY DATE: NOV 06, 2022@05:35:18 AUTHOR: ARIANA DE LA O EXP COSIGNER: URGENCY: STATUS: COMPLETED Patient seen on October via F2F visit for 30 minutes. Treatment provided: SCM x20 min, NMR x10 min Requesting Provider: BAYRON PHAM MD Provisional Diagnosis: Pain in left Shoulder(ICD-10-CM M25.512) Reason for Referral: Evaluate and Treat: Left shoulder posterior pain along the medial scapular border with significant scapular ptosis and scapular dyskinesis. Please correct abnormal motion pattern to eliminate both the scapular ptosis and the scapular dyskinesis. Date of Initial:Oct # of Visits F2F:2 # of Cancelled/No Show:0 Preferred name: Kiran SUBJECTIVE Active problems - Computerized Problem List is the source for the followin. BACKACHE NOS 2. Osteoarthritis 3. Major depressive disorder (SNOMED CT 502149193) 4. Generalized anxiety disorder (SNOMED CT 92274832) 6. Rupture of tendon of biceps 7. Chronic pain - discussed likely dx fibromyalgia; see 03/02/19 [facility] note for details 9. Pain of right temporomandibular joint 11. H/O: surgery - s/p Vasectomy - s/p Bilteral Distal Biceps repair separately - s/p C6-7 Foraminotomy - s/p lower back fusion L4-S1 WITH HARDWARE - s/p wisdom teeth extraction 12. Body mass index 25-29 - overweight 15. Prediabetes Relevant imaging: X-rays of the right shoulder demonstrate moderate glenohumeral DJD with inferior osteophyte and joint space narrowing X-rays of the left shoulder show normal glenohumeral joint. No evidence of subluxation. There is widening of the AC joint. MRA 12/14: FINDINGS: Osseous acromial outlet: There is a Type I subacromial configuration. No subacromial enthesophyte. No downsloping of the acromion. Resection or resorption of the distal clavicle. Contrast from the subacromial subdeltoid bursa extends into the acromioclavicular joint. Rotator cuff: Oblique full-thickness tear of the distal anterior aspect of the supraspinatus tendon measures 0.6 cm in width and length. Mild fraying and undersurface tearing of the supraspinatus tendon medial to the full-thickness tear. Mild tendinopathy. No muscle strain or atrophy. The infraspinatus and subscapularis tendons are intact. Teres minor is unremarkable. Biceps Tendon: No long head biceps tendon tear, subluxation, or tendinosis. Labral Structures: Tear of the superior labrum posterior to the biceps labral anchor complex and extending into the posterior labrum superiorly at the labral chondral junction. No para labral cyst. Glenohumeral joint: Mild thinning and fissuring in the humeral head and glenoid articular cartilage. No loose body or synovitis. The glenohumeral ligaments are intact. Additional findings: No fracture or contusion. No osseous lesion. Chief Complaint: Pt notes he has had L shoulder pain for several months. He has had R shoulder pain for more than an year. Most of the L shoulder pain is near his shoulder blade. Pt had a PRP injection in his R shoulder late August with short term relief. His L shoulder has been feeling better since the MRA. Thinks the [facility] ANN injected him with a steroid injection at the same time as the MRA. Records show a steroid was not injected. Pt is R hand dominant. Denies N&T but has Hx of cervical foraminotomy. L shoulder MRA findings are above however Dr Pham reviewed the MRI images and disagreed with the report. He recommended PT and no injections. Previous Intervention: R PRP injection Current functional status: pain with pushups or using chest press, pain with lateral movement with elbows bent, noc pain- can only lay on either side for short periods. Patient's goal(s) for therapy: help the pain Pain Intensity (numeric pain rating scale): now: 3/10 worst: 5/10 best: 2/10 Easing factors: chiro- manips and ESTIM Patient-Reported Outcomes Measurement Information System (PROMIS) Physical Function Upper Extremity - Short Form Baseline PROMIS Pain Upper Extremity Scale Score 43.90 Daily comments: 11/06: Pt notes both shoulders feel good lately however his pain is starting to return at night when sleeping. He would like to discuss a tens machine today to help his shoulder and back pain. He reports he hasn't performed his HEP but tries to go to the gym 5 x/wk Precautions: Pt denies history of pacemaker or cardiac defibrillator placement, uncontrolled cardiac arrhythmias, , history of seizures or active/suspected cancer. SHOULDER OBJECTIVE FINDINGS Observation: bilat protracted scapular L>R, L scapula is elevated as compared to R. No scapular winging. 11/06: no change Palpation:TTP over infraspinatus/teres muscles Upper Extremity Active/Passive Range of Motion (AROM/PROM) (norms in degrees) *indicates limited by pain Shoulder Flexion (180):160 bilat Abduction (180):160 bilat Internal Rotation (70): L: T7, R: L1* External Rotation (90):T2 bilat Upper Extremity (myotomes): *indicates limited by pain. UE Manual Muscle Testing: Shoulder flexion (C3):5/5 bilat Scapular elevation (C4):5/5 Shoulder abduction (C5):5/5 Shoulder scaption:5/5 Shoulder external rotation (C5):5/5 Shoulder internal rotation (C7):5/5 Elbow flexion (C6):5/5 Elbow extension (C7):5/5 Special Tests: for Left Labral Pathologies Compression Rotation:NT Speeds (SLAP):neg Wilson:neg Impingement Pathologies Bear-Sergei test:pos Neer's Sign:neg Empty Can:neg Rotator cuff integrity Drop arm:neg Lift-off/Internal Rotation lag:neg Clearing Exam: Cervical Screen: NT at eval Active Range of Motion (AROM): Compression: Spurlings: Upper limb tension tests: Fernanda Bang-Spine: PT INTERVENTIONS: risks/benefits reviewed and verbal consent obtained for interventions. All HEP exercises are to be performed 1x/day unless otherwise specified. Neuromuscular re-education: Prone Lower Trapezius with Legs Straight and Dumbbells on Swazi Ball - 1 x daily - 15 reps. HEP Prone Middle Trapezius with Legs Straight and Dumbbells on Swazi Ball - 1 x daily - 15 reps HEP (palm flat and thums up) Shoulder Adduction with Anchored Resistance - 1 x daily - 15 reps HEP. black band -Supine punch 5#, 10x ea SCM: E-stim/TENS: - pt instructed in TENS use/safety, lead and electorde care/placement, parameters appropriate for pt condition - placed electrodes around identified areas of pain over inspected, intact skin. Began tx with constant mode 50micrometers pulse width, 120Hz pulse rate. Had pt increase intensity to tolerance. Pt then cycled through all different modes with PT present as PT described the difference and indications for the other modes. - Skin check was performed upon removal of electrodes; no adverse reactions were identified. Patient was advised to check skin under electrodes routinely and discontinue use and contact physician or therapist if adverse reaction or skin irritation occurs. Home Exercise Program: Pt provided with handout. =ER pullouts green TB HEP dc -seated HOR ABD green TB HEP 15x d/c Access Code: [email or web address] URL: [email or web address] Date: 11/06/2022 --------- GOAL(s):1. In one week, pt will demonstrate independence with HEP. MET 2. On 11/14/22, pt will improve the outcome measure score to 50.90. ONGOING --------- ASSESSMENT: Pt presented for f/u. He notes both shoulders have been feeling good lately since the PRP injection, however notes his noc pain is slowly returning. Pt hasn't been performing his HEP but goes to the gym 5x/wk. He was interested in reviewing a home TENS unit to help control his shoulder pain and LBP. Pt demonstrated safe operation of TENS unit and is appropriate for home unit to manage shoulder pain. Pt was issued written handout instructions and provided with contact information if questions arise. Response to interventions: good tolerance to new exercises. Patient understanding: Patient indicates readiness to learn, verbalizes understanding, agreement and satisfaction with the treatment plan. Denies further questions. ------ PLAN: Since PT services will not be available for several weeks at [facility], pt was given the option to continue PT services at the [facility] in [place] or [facility]. Pt chose to perform his HEP independently. Will contact the scheduling line if he decides he needs another appt. Discharge Planning: Once all goals have been met and/or maximum level of function has been achieved. This note shall serve as discharge should patient not follow up in 8 weeks. /mindy/ ARIANA DE LA O DPT PHYSICAL THERAPIST Signed: 11/06/2022 12:17 ARIANA DE LA O [facility]
--- OUTSIDE RECORDS SUMMARY | 2023-10-11 15:47 | XMS_ITS | Encounter Summary ---
Author Name Department of Vetera Affairs Organization Department of Vetera Affairs Address [address] [place] [address] Support Name Relationship Address Phone MELQUIADES TAYLOR Vicky Next of Kin [address] [place] [address] MELQUIADES TAYLOR Emergency Contact [address] [place] [address] Insurance Providers: All historical and [...] PART A January 01, 2016 PART A [id number] [phone] DUSTIN TAYLOR JR PATIENT MEDICARE (WNR) MEDICARE (M) PART B January 01, 2016 PART B [id number] [phone] DUSTIN TAYLOR JR PATIENT Selected Encounter This section includes the information on record at [place] for the Encounter. Date/Time Encounter Type Encounter Description Reason Pro vider Source December 31, 2022 12:00 PM Outpatient Encounter PRIMARY CARE/MEDICINE IHE Encounter Template Text not used by [place] Plan of Treatment: Future Appointments (+ 6 months) and Future Tests (+/- 45 days) The Plan of Treatment section includes future care activities for the patient from all [place] treatmentfacilities. This section includes future appointments and future orders which are active, pending or scheduled. Future Appointments This section includes appointments that were scheduled to occur 6 months from the date of the Encounter, up to a maximum of 20 appointments. The data comes from all [place] treatment facilities. Appointment Date/Time Appointment Type Appointme nt Facility Name Feb 18, 2023 01:30 PM AMBULATORY - NONE [facility] Feb 25, 2023 01:00 PM AMBULATORY - REHAB MEDICIN E [facility] Feb 26, 2023 01:30 PM AMB[facility]ORY - [facility]ICINE [facility] Mar 11, 2023 11:00 AM AMBULATORY - REHAB MEDICIN E [facility] Mar 28, 2023 10:00 AM AMBULATORY - NONE [facility] Mar 28, 2023 10:30 AM [facility] Apr 08, 2023 10:00 AM AMBULATORY - NONE [facility] Social History: Smoking Status (Most current) and Tobacco Use (All prior to encounter date) This section includes the most current, and the historical, smoking and tobacco- related health factors from the [place] facility where the Encounter took place. Current Smoking Status This section includes the most current smoking, or tobacco-related health factor, from the [place] facility where the Encounter took place. Date/Time Current Smoking Status Comment Shayne alston Nov 20, 2016 09:03 AM LIFETIME NON-TOBACCO USER [facility] Tobacco Use History This section includes a history of the smoking, or tobacco-related health factors, that were collected on or before the date of the Encounter. The data comes from the [place] facility where the Encounter took place. Date/Time Smoking Status/Tobacco Use Comment F acility Jun 29, 2016 07:34 AM INPT NO TOBACCO USE IN LAST [address] [facility] Dec 12, 2015 12:47 PM LIFETIME NON-TOBACCO USER [facility] Dec 28, 2014 12:34 PM LIFETIME NON-TOBACCO USER [facility] Jul 08, 2012 07:40 AM LIFETIME NON-TOBACCO USER [facility] Encounter Notes: All associated encounter notes This section contains the clinical notes associated to the Encounter. Date/Time Encounter Note(s) Provider Source December 31, 2022 12:00 PM NONVA CONSULT: LOCAL TITLE: COMMUNITY CARE CONSULT RESULT CHIRIROPRACTIC STANDARD TITLE: NONVA CONSULT DATE OF NOTE: DECEMBER 31, 2022@12:00 ENTRY DATE: JANUARY 01, 2023@17:05:52 AUTHOR: GORDON ROWAN COSIGNER: URGENCY: STATUS: COMPLETED [facility] - Scanned Document 12/31/22 RFS [facility] requesting new authorization for additional chiropractic visits to continue care. SCANNED DOCUMENT SIGNATURE NOT REQUIRED Electronically Filed: 01/01/2023 by: VALDO ROWAN RN Community Over Hauler Helper VALDO ROWAN OC
--- OUTSIDE RECORDS SUMMARY | 2023-10-11 15:47 | XMS_ITS | Encounter Summary ---
Author Name Department of Vetera Affairs Organization Department of Vetera Affairs Address [address] [place] [id number] Support Name Relationship Address Phone MELQUIADES TAYLOR Next of Kin [address] [place] [address] MELQUIADES TAYLOR Emergency Contact [address] [place] [address] Insurance Providers: All historical and [...] PART A January 01, 2016 PART A [id number] [phone] DUSTIN TAYLOR JR PATIENT MEDICARE (WNR) MEDICARE (M) PART B January 01, 2016 PART B [id number] [phone] DUSTIN TAYLOR JR PATIENT Selected Encounter This section includes the information on record at [place] for the Encounter. Date/Time Encounter Type Encounter Description Reason Pro vider Source January 01, 2023 05:06 PM Outpatient Encounter COMMUNITY CARE CONSULT IHE Encounter Template Text not used by [place] Plan of Treatment: Future Appointments (+ 6 months) and Future Tests (+/- 45 days) The Plan of Treatment section includes future care activities for the patient from all [place] treatmentfacilities. This section includes future appointments and future orders which are active, pending or scheduled. Future Appointments This section includes appointments that were scheduled to occur 6 months from the date of the Encounter, up to a maximum of 20 appointments. The data comes from all [place] treatment facilities. Appointment Date/Time Appointment Type Appointme nt Facility Name Feb 18, 2023 01:30 PM AMBULATORY - NONE [facility] Feb 25, 2023 01:00 PM AMBULATORY - REHAB MEDICIN E [facility] Feb 26, 2023 01:30 PM [facility]ATORY - MEDICINE [facility] Mar 11, 2023 11:00 AM AMBULATORY - REHAB MEDICIN E [facility] Mar 28, 2023 10:00 AM AMBULATORY - NONE [facility] Mar 28, 2023 10:30 AM [facility] Apr 08, 2023 10:00 AM AMBULATORY - NONE [facility] Social History: Smoking Status (Most current) and Tobacco Use (All prior to encounter date) This section includes the most current, and the historical, smoking and tobacco- related health factors from the [place] facility where the Encounter took place. Current Smoking Status This section includes the most current smoking, or tobacco-related health factor, from the [place] facility where the Encounter took place. Date/Time Current Smoking Status Comment Shayne alston Nov 20, 2016 09:03 AM LIFETIME NON-TOBACCO USER [facility] Tobacco Use History This section includes a history of the smoking, or tobacco-related health factors, that were collected on or before the date of the Encounter. The data comes from the [place] facility where the Encounter took place. Date/Time Smoking Status/Tobacco Use Comment F acility Jun 29, 2016 07:34 AM INPT NO TOBACCO USE IN LAST 30 D AYS [facility] Dec 12, 2015 12:47 PM LIFETIME NON-TOBACCO USER [facility] Dec 28, 2014 12:34 PM LIFETIME NON-TOBACCO USER [facility] Jul 08, 2012 07:40 AM LIFETIME NON-TOBACCO USER [facility] Encounter Notes: All associated encounter notes This section contains the clinical notes associated to the Encounter. Date/Time Encounter Note(s) Provider Source January 01, 2023 05:06 PM NONVA NOTE: LOCAL TITLE: COMMUNITY CARE-REQUEST FOR SERVICE NOTE STANDARD TITLE: NONVA NOTE DATE OF NOTE: JANUARY 01, 2023@17:06 ENTRY DATE: JANUARY 01, 2023@17:06:07 AUTHOR: GORDON ROWAN COSIGNER: URGENCY: STATUS: COMPLETED COMMUNITY CARE-REQUEST FOR SERVICE NOTE Has ADDENDA Request for Services (RFS) was received from patient's Chiropractic Provider at [facility] requesting new authorization for additional chiropractic visits to continue care. RFS and notes were uploaded to CHIROPRACTIC Consult # [id number]. See [facility] note dated 12/31/22 & 10/05/22 for details. Authorization expires on 2023-01-16. [place] has used 8/8 visits. Alerting PACT for review and new consult placement if deemed appropriate. If new consult is not entered please communicate to the [place] the alternative plan in care. Thank you. /mindy/ VALDO ROWAN RN Community Vice Investigator Signed: 01/01/2023 17:08 Receipt Acknowledged By: 01/02/2023 12:21 /es/ PARRISH NETTLES RN REGISTERED NURSE 01/01/2023 17:10 /es/ WONG MERCER MD PHYSICIAN [facility] 01/02/2023 ADDENDUM STATUS: COMPLETED Pended Chiro consult, per reutet. /mindy/ PARRISH NETTLES RN REGISTERED NURSE Signed: 01/02/2023 12:35 VALDO ROWAN [facility]
--- OUTSIDE RECORDS SUMMARY | 2023-10-11 15:47 | XMS_ITS | Encounter Summary ---
Author Name Department of Vetera Affairs Organization Department of Vetera Affairs Address [address] [place] [address] Support Name Relationship Address Phone MELQUIADES TAYLOR Next of Kin [address] [place] [address] BRANDONGILMAMELQUIADES Vicky Emergency Contact [address] [place] [address] Insurance Providers: All historical and [...] PART A January 01, 2016 PART A [id number] [phone] DUSTIN TAYLOR JR PATIENT MEDICARE (WNR) MEDICARE (M) PART B January 01, 2016 PART B [id number] [phone] DUSTIN TAYLOR JR PATIENT Selected Encounter This section includes the information on record at [place] for the Encounter. Date/Time Encounter Type Encounter Description Reason Pro vider Source Dec 05, 2022 12:20 PM Outpatient Encounter TELEPHONE TRIAGE IHE Encounter Template Text not used by [place] Plan of Treatment: Future Appointments (+ 6 months) and Future Tests (+/- 45 days) The Plan of Treatment section includes future care activities for the patient from all [place] treatmentfacilities. This section includes future appointments and future orders which are active, pending or scheduled. Future Appointments This section includes appointments that were scheduled to occur 6 months from the date of the Encounter, up to a maximum of 20 appointments. The data comes from all [place] treatment facilities. Appointment Date/Time Appointment Type Appointme nt Facility Name Feb 18, 2023 01:30 PM AMBULATORY - NONE [facility] Feb 25, 2023 01:00 PM AMBULATORY - REHAB MEDICIN E [facility] Feb 26, 2023 01:30 PM [facility]ORY - [facility]ICINE [facility] Mar 11, 2023 11:00 AM AMBULATORY - REHAB MEDICIN E [facility] Mar 28, 2023 10:00 AM AMBULATORY - NONE [facility] Mar 28, 2023 10:30 AM AMBULATORY - SURGERY [facility] Apr 08, 2023 10:00 AM AMBULATORY - NONE [facility] Social History: Smoking Status (Most current) and Tobacco Use (All prior to encounter date) This section includes the most current, and the historical, smoking and tobacco- related health factors from the [place] facility where the Encounter took place. Current Smoking Status This section includes the most current smoking, or tobacco-related health factor, from the [place] facility where the Encounter took place. Date/Time Current Smoking Status Comment Shayne alston Nov 20, 2016 09:03 AM LIFETIME NON-TOBACCO USER [facility] Tobacco Use History This section includes a history of the smoking, or tobacco-related health factors, that were collected on or before the date of the Encounter. The data comes from the [place] facility where the Encounter took place. Date/Time [...] Encounter Note(s) Provider Source Dec 05, 2022 12:20 PM PHARMACY NOTE: LOCAL TITLE: PHARMACY CALL CENTER MEDICATION RENEWAL REQUEST STANDARD TITLE: PHARMACY NOTE DATE OF NOTE: DEC 05, 2022@12:20 ENTRY DATE: DEC 05, 2022@12:20:55 AUTHOR: BRANDON BUTLER COSIGNER: URGENCY: STATUS: COMPLETED Medication renewal(s) requested by patient for: Controlled substance(s): Medication renewal(s) requested by: audio care Controlled substance(s): TESTOSTERONE CYP 200MG/ML 1ML IN OIL Medications to be: MAILED OUT PRESCRIPTION DRUG MONITORING PROGRAM (PDMP) (frequency of PDMP checks should be done in compliance with most restrictive guidance considering provider licensure, state and local/VHA policy) No PDMP data available LAST URINE DRUG SCREEN (UDS frequency per provider discretion) (Every 3 months or per local requirement or when clinically indicated) No UDS data found MEDICATIONS Active and Recently Outpatient Medications (excluding Supplies): Active Outpatient Medications Status 1) SILDENAFIL CITRATE 100MG TAB TAKE ONE-HALF TABLET BY ACTIVE (S) MOUTH NEEDED 1 HOUR BEFORE ANTICIPATED SEXUAL ACTIVITY--MAXIMUM 4 DOSES FOR 30-DAY SUPPLY. FOR ERECTIONS 2) TESTOSTERONE CYP 200MG/ML 1ML IN OIL INJECT 200MG ACTIVE INTRAMUSCULAR EVERY 2 WEEKS FOR HYPOGONADISM (200MG IS 1ML) -DISCARD VIAL AFTER WITHDRAWING A SINGLE DOSE ALLERGIES: CYCLOBENZAPRINE (May 03, 2020) METHOCARBAMOL (May 03, 2020) /mindy/ BRANDON BUTLER CPHT VISAgustin 23 CALL CENTER LIGHT ADJUSTER Signed: 12/05/2022 12:21 Receipt Acknowledged By: * AWAITING SIGNATURE * NATO CHAUDHRY DANIELLE M [facility]
--- OUTSIDE RECORDS SUMMARY | 2023-10-11 15:48 | XMS_ITS | Encounter Summary ---
Author Name Department of Vetera Affairs Organization Department of Vetera Affairs Address [address] [place] [address] Support Name Relationship Address Phone MELQUIADES TAYLOR Next of Kin [address] [place] [address] BRANDON MELQUIADES Vicky Emergency Contact [address] [place] [address] Insurance Providers: All historical and [...] PART A January 01, 2016 PART A [id number] [phone] DUSTIN TAYLOR JR PATIENT MEDICARE (WNR) MEDICARE (M) PART B January 01, 2016 PART B [id number] [phone] DUSTIN TAYLOR JR PATIENT Selected Encounter This section includes the information on record at ID for the Encounter. Date/Time Encounter Type Encounter Description Reason Provider Source January 21, 2023 10:19 AM Outpatient Encounter TELEPHONE TRIAGE LIONEL BRANNON Encounter Template Text not used by ID [...] 18, 2023 01:30 PM AMBULATORY - NONE [facility] Feb 25, 2023 01:00 PM AMBULATORY - REHAB MEDICIN E [facility] Feb 26, 2023 01:30 PM AMBUL[facility]ORY - [facility]ICINE [facility] Mar 11, 2023 11:00 AM AMBULATORY - REHAB MEDICIN E [facility] Mar 28, 2023 10:00 AM AMBULATORY - NONE [facility] Mar 28, 2023 10:30 AM AMBULATORY - SURGERY [facility] Apr 08, 2023 10:00 AM AMBULATORY - NONE [facility] Social History: Smoking Status (Most current) and Tobacco Use (All prior to encounter date) This section includes the most current, and the historical, smoking and tobacco- related health factors from the ID facility where the Encounter took place. Current Smoking Status This section includes the most current smoking, or tobacco-related health factor, from the ID facility where the Encounter took place. Date/Time Current Smoking Status Comment Shayne alston Nov 20, 2016 09:03 AM LIFETIME NON-TOBACCO USER [facility] Tobacco Use History This section includes a history of the smoking, or tobacco-related health factors, that were collected on or before the date of the Encounter. The data comes from the ID facility where the Encounter took place. Date/Time Smoking Status/Tobacco Use Comment F acility Jun 29, 2016 07:34 AM INPT NO TOBACCO USE IN LAST 30 D AYS [facility] Dec 12, 2015 12:47 PM LIFETIME NON-TOBACCO USER [facility] Dec 28, 2014 12:34 PM LIFETIME NON-TOBACCO USER [facility] Jul 08, 2012 07:40 AM LIFETIME NON-TOBACCO USER [facility] Encounter Notes: All associated encounter notes This section contains the clinical notes associated to the Encounter. Date/Time Encounter Note(s) Provider Source January 21, 2023 10:19 AM RN PROGRESS NOTE: LOCAL TITLE: CCC: CLINICAL TRIAGE STANDARD TITLE: RN PROGRESS NOTE DATE OF NOTE: JANUARY 21, 2023@10:19:46 ENTRY DATE: JANUARY 21, 2023@10:19:46 AUTHOR: LIONEL BRANNON COSIGNER: URGENCY: STATUS: COMPLETED Patient Demographics Patient Name: DUSTIN TAYLOR Patient Primary Address: [address] [place] [address] Patient Primary Phone: [phone] Patient : 1970 Patient Age: 52 SSN: [id number] Caller/Recipient Relation to Patient: Self Emergency Contact: MELQUIADES TAYLOR Nurse Summary Nurse Summary: ############################# ############################# ##################### ########### VISN 23 TRIAGE NURSE NOTES PATIENT CONCERN/DURATION/ONSET: Sharon c/o having chronic low back pain that he has had surgery on in the past. 1 week ago was lifting weights at the gym and thought he ''pulled a muscle'' in his low back. [place] reports that the pain is 6-7/10 and become 9/10 with something as light as a sneeze. denies fever, abdominal pain, pain down legs, loss of bowel or bladder. [place] states it is not getting better. WHAT HAS PATIENT TRIED TO TREAT THE SYMPTOMS: Advil HISTORY/PREVIOUS TREATMENT: Back surgery, WHAT IS PATIENT GOAL FOR THE CALL: Treatment for Low back pain (acute) Advice for care; UC today Was Care Now considered (TELE or VVC)? 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 Sharon states he will go now and was given mission act location and information along with the number. Best contact for is (Verified). (Caller could accurately summarize the agreed upon plan of care as discussed in the education log portion of this note.) Per policy, automated recommendations for an ?appointment? indicates an interaction (virtual or in-person) with the care team. This note was created by a [address] critical care nurse. Please do not alert this nurse by adding as a signer for future communications. Alerts are not monitored by this user, please reach out to [facility] instead if indicated. Triage Summary Pain Score: 7 (Moderate to Severe Pain) Utilized the Triage Tool: Yes Conducted triage/discussed symptoms Chief Complaint: Back Pain System WHEN: Within 8 Hours Nurse's Recommendation / WHEN: Within 8 Hours System WHERE: Urgent care center Nurse's Recommendation / WHERE: [facility]gent [facility] Patient Disposition Patient/Caregiver agrees to plan of care: Yes Patient WHERE: Urgent Care [facility] Patient WHEN: Within 8 hours Referred patient to emergency services Instructed patient to go to Urgent Care Provided location of Urgent Care Center Advised of [place] Act UC Benefits Clinical Contact Center Codes Clinic/Location: V23 MSP PHONE CCC RN TXCC Triage Complete Triage Note: Phone Triage 21 Jan 2023 15:10:21 +0000 [facility] [[email or web address]] Demographics 52 y/o Male Results CC: Back Pain Software suggested: Within 8 Hours Software suggested follow-up location: Urgent care center Values and Measures Duration of CC: 1 Weeks Positive Responses HPI: back pain, lower back HPI: back pain, severe, duration longer than 1 hour VS: temperature not taken Negative Responses Denies: HPI: back injury, recent Denies: HPI: back pain, duration longer than 1 month Denies: HPI: back pain, radiation to abdomen Denies: HPI: back pain, unilateral Denies: HPI: difficulty walking Denies: HPI: dysuria Denies: HPI: hematuria Denies: HPI: increased urinary frequency Denies: HPI: lightheadedness, orthostatic Denies: HPI: numbness, groin or legs, new Denies: HPI: skin erythema, back, worsening Denies: HPI: syncope Denies: HPI: urinary urgency, constant Denies: HPI: vomiting Denies: HPI: weakness, unable to stand Denies: HPI: weakness, with diaphoresis Denies: PMH: abdominal aortic aneurysm Denies: PMH: kidney stone Denies: PMH: UTI /es/ LIONEL BRANNON RN, BSN VISN 23 DAYTIME BIN CLEANER Signed: 01/21/2023 10:20 LIONEL BRANNON [facility]
--- OUTSIDE RECORDS SUMMARY | 2023-10-11 15:48 | XMS_ITS | Encounter Summary ---
Author Name Department of [facility] Organization Department of [facility] Address [address] [place] [address] Support Name Relationship Address Phone LOANMELQUIADES Vicky Next of Kin [id number] [place] [address] MELQUIADES TAYLOR Emergency Contact [phone] [place] [address] Insurance Providers: All historical and [...] PART A January 01, 2016 PART A [id number] VARINDER TAYLOR JR PATIENT MEDICARE (WNR) MEDICARE (M) PART B January 01, 2016 PART B [id number] VARINDER TAYLOR JR PATIENT Selected Encounter This section includes the information on record at [facility] for the Encounter. 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 Date/Time Primary/Secondary Diagnosis Diagnosis Name Provider Source Feb 25, 2023 01:14 PM PRIMARY Chondromalacia, right shoulder MARIBEL SANTIZO [facility] Plan of Treatment: Future Appointments (+ 6 months) and Future Tests (+/- 45 days) The Plan of Treatment section includes future care activities for the patient from [facility]. This section includes future appointments and future orders which are active, pending or scheduled. Future Appointments This section includes appointments that were scheduled to occur 6 months from the date of the Encounter, up to a maximum of 20 appointments. The data comes from all [facility] facilities. Appointment Date/Time Appointment Type Appointme nt Facility Name Feb 26, 2023 01:30 PM AMBULATORY - MEDICINE [facility] Mar 11, 2023 11:00 AM AMBULATORY - REHAB MEDICIN E [facility] Mar 28, 2023 10:00 AM [facility] Mar 28, 2023 10:30 AM AM[facility]ULATORY - SURGERY [facility] Apr 08, 2023 10:00 AM AM[facility] - NONE [facility] Aug 12, 2023 10:30 AM AMBULATORY - NONE [facility] Aug 15, 2023 09:30 AM AMBULATORY - NONE [facility] Aug 20, 2023 01:00 PM AMBULATORY - SURGERY [facility] Aug 27, 2023 08:30 AM AMBULATORY - NONE [facility] Lab Results: +/- 30 days of the encounter This section includes the Chemistry and Hematology Lab Results on record with [facility] for the patient. Radiology Reports and Pathology Reports are provided separately, in subsequent sections. Lab Results This section contains the Chemistry/Hematology Results that were resulted 30 days before or 30 daysafter the date of the Encounter. Date/Time Source Result Type Result - Unit Interpretation Reference Range Comment Feb 26, 2023 02:28 PM [facility] TSH W/REFLEX TO FREE T4 Specimen Type: PLASMA No comment entered. Ordering Provider: DIDIER HAQUE Report Released Date/Time: Feb 26, 2023 02:13 PM Reporting Lab: [facility] [id number] Performing Lab: [facility] [id number] TSH 0.49 0.35-4.94 Feb 26, 2023 02:28 PM [facility] HEMOGLOBIN A1C Specimen Type: BLOOD Comment: Values obtained from A1C measurements can vary. For typical A1C assays, a reported value of 7.0 could actually be between 6.7 and 7.3 if measured by a reference method. A reported value of 9.0 could actually be between 8.7 and 9.3. Ref: http://www.ngs p.org/CAPdata. asp Ordering Provider: DIDIER HAQUE Report Released Date/Time: Feb 26, 2023 02:13 PM Reporting Lab: [facility] [id number] Performing Lab: [facility] [phone] HEMOGLOBIN A1C 5.2 4.0-6.0 Feb 26, 2023 02:28 PM [facility] TESTOSTERONE Specimen Type: SERUM No comment entered. Ordering Provider: DIDIER HAQUE Report Released Date/Time: Feb 26, 2023 02:13 PM Reporting Lab: [facility] [id number] Performing Lab: [place] [id number] TESTOSTERONE [phone] Feb 26, 2023 02:28 PM [facility] LIPID PANEL,NON-FASTING Specimen Type: PLASMA No comment entered. Ordering Provider: DIDIER HAQUE Report Released Date/Time: Feb 26, 2023 02:13 PM Reporting Lab: [facility] [phone] Performing Lab: [facility] [phone] CHOLESTEROL 199 See_Comment .HDL 51 See_Comment LDL CALCULATION 123 H See_Comment VLDL CALCULATION 25 See_Comment NON HDL CHOLESTEROL 148 H See_Comment TRIG(NON FASTING) 124 See_Comment Feb 26, 2023 02:28 PM [facility] CBC & DIFF Specimen Type: BLOOD Comment: Automated Differential Performed Ordering Provider: DIDIER HAQUE Report Released Date/Time: Feb 26, 2023 02:13 PM Reporting Lab: [facility] [phone] Performing Lab: [facility] [id number] WBC 9.74 4.0-11.0 RBC 5.24 4.6-6.2 HGB 16.1 13.5-17.9 HCT 47.8 41-54 MCV 91.2 80-100 MCH 30.7 27-33 MCHC 33.7 32.0-37.5 PLT 222 150-400 MPV 10.7 H 7.4-10.4 NEUT 51.4 LYMPHS 35.8 MONO 10.7 EOSINO 1.3 BASO 0.5 RDW 13.3 11.5-14.5 ABS LYMPH 3.49 1.0-4.0 ABS MONO 1.04 H 0.1-1.0 ABS NEUT 5.00 2.0-7.7 ABS EOS 0.13 0-0.5 ABS BASO 0.05 0-0.2 IG(META,MYELO,P RO) 0.3 ABS IMMATURE GRAN 0.03 0-0.1 Feb 26, 2023 02:28 PM [facility] COMPREHENSIVE METABOLIC PANEL+MG Specimen Type: PLASMA No comment entered. Ordering Provider: DIDIER HAQUE Report Released Date/Time: Feb 26, 2023 02:13 PM Reporting Lab: [facility] [phone] Performing Lab: [facility] [phone] CREATININE 1.4 H 0.7-1.2 UREA NITROGEN 20 8-26 GLUCOSE 80 70-100 SODIUM 140 136-145 POTASSIUM 4.4 3.5-5.1 CHLORIDE 105 98-107 CO2 27 22-29 CALCIUM 9.4 8.4-10.2 PROTEIN,TOTAL 7.5 6.0-8.3 ALBUMIN 4.4 3.5-5.2 BILIRUBIN, TOTAL 0.6 0.2-1.2 MAGNESIUM 2.1 1.6-2.6 ANION GAP 8 5-15 ALKALINE PHOSPHATASE 56 40-150 ALT/SGPT 30 See_Comment AST/SGOT 28 See_Comment .CREAT EGFR(CKD-EPI) 60 See_Comment Social History: Smoking Status (Most current) and Tobacco Use (All prior to encounter date) This section includes the most current, and the historical, smoking and tobacco- related health factors from the [facility] where the Encounter took place. Current Smoking Status This section includes the most current smoking, or tobacco-related health factor, from the [facility] facility where the Encounter took place. Date/Time Current Smoking Status Comment Shayne alston Nov 20, 2016 09:03 AM LIFETIME NON-TOBACCO USER [facility] Tobacco Use History This section includes a history of the smoking, or tobacco-related health factors, that were collected on or before the date of the Encounter. The data comes from the [facility] facility where the Encounter took place. Date/Time Smoking Status/Tobacco Use Comment Will lópez Jun 29, 2016 07:34 AM INPT NO TOBACCO USE IN LAST 30 D AYS [facility] Dec 12, 2015 12:47 PM LIFETIME NON-TOBACCO USER [facility] Dec 28, 2014 12:34 PM LIFETIME NON-TOBACCO USER [facility] Jul 08, 2012 07:40 AM LIFETIME NON-TOBACCO USER [facility] Encounter Notes: All associated encounter notes This section contains the clinical notes associated to the Encounter. Date/Time Encounter Note(s) Provider Source Feb 25, 2023 12:43 PM PHYSICAL MEDICINE REHAB OUTPATIENT NOTE: LOCAL TITLE: REHAB MEDICINE CLINIC NOTE STANDARD TITLE: PHYSICAL MEDICINE REHAB OUTPATIENT NOTE DATE OF NOTE: FEB 25, 2023@12:43 ENTRY DATE: FEB 25, 2023@12:43:09 AUTHOR: HANNAH SANTIZO COSIGNER: URGENCY: STATUS: COMPLETED Visit conducted by synchronous telehealth. verbal consent obtained. Location/emergency number confirmed. Environment surveyed and all participants identified. Virtual conference room locked. The following were verified with the . - Identification using name and last 4 of N: Varinder Freygretchen Sanchez [id number] - Address (current physical location): In car, stationary. [place] - Phone number: [phone] - Emergency Contact: - Other participants: Dog HPI: 52 y/o presents for right glenohumeral joint corticosteroid injection, referred from ortho. However, he also wants to discuss PRP which Ortho also mentioned in their note. He reports chronic worsening pain for few years. He had R GH joint CSI injection on 04/05/21 and he got about 50% improvement for a few months. Interim History: had a R glenohumeral joint PRP injection on 08/24/22. Successful injection. Initially it was almost a miracle, first week it was perfect. Atleast 50% better than what it was. There is still sometimes pain but not as bad. ROM hasn't changed that much, but not in pain, not causing discomfort when sleeping. Exercising regularly, lifting weights. Weights and machines are fine, no pain. Certain angles that he just can't do. Overall PRP has been much much more effective than CSI in the past. When he does have pain it feels more deep inside, somewhat more on the back of the shoulder. He denies any current NSAID use. He has a primary care appointment tomorrow. After further discussion, I have decided to order a repeat Right glenohumeral PRP joint injection. is in agreement. Time spent in review, documentation and visit: 30 minutes /mindy/ HANNAH SANTIZO DO PHYSICIAN, PM&R Signed: 02/25/2023 13:15 HANNAH SANTIZO [facility]
--- OUTSIDE RECORDS SUMMARY | 2023-10-11 15:48 | XMS_ITS | Encounter Summary ---
Author Name [facility] Organization [facility] Address [address] [place] [address] Support Name Relationship Address Phone BRANDON MELQUIADES L Next of Kin [address] [place] [address] MELQUIADES TAYLOR Emergency Contact [address] [place] [address] Insurance Providers: All historical and [...] PART A January 01, 2016 PART A [phone] DUSTIN TAYLOR JR PATIENT MEDICARE (WNR) MEDICARE (M) PART B January 01, 2016 PART B [id number] DUSTIN TAYLOR JR PATIENT Selected Encounter This section includes the information on record at [place] for the Encounter. Date/Time Encounter Type Encounter Description Reason Provider Source Feb 26, 2023 01:30 PM OFFICE O/P EST MOD 30-39 MIN PRIMARY CARE/MEDICINE ICD-10-CM Z00.8 Encounter for other general examination DIDIER HAQUE Uriel Encounter Template Text not used by [place] Assessments - Encounter Diagnoses This section includes the primary and secondary diagnoses documented for the Encounter. Date/Time Primary/Secondary Diagnosis Diagnosis Name Provider Source Feb 26, 2023 02:31 PM PRIMARY Encounter for other general examination DIDIER HAQUE CB Feb 26, 2023 02:31 PM SECONDARY Contact with and exposure to other hazardous substances GABY PEREA CB Feb 26, 2023 02:31 PM SECONDARY Male erectile dysfunction, unspecified [facility]IER [facility] [facility] Feb 26, 2023 02:31 PM SECONDARY Pain in left knee [facility] Feb 26, 2023 02:31 PM SECONDARY Pain in right foot DIDIER [facility]QUE[place] CB Feb 26, 2023 02:31 PM SECONDARY Testicular hypofunction DIDIER HAQUEKOPEE [facility] Feb 26, 2023 02:31 PM SECONDARY Unspecified osteoarthritis, unspecified site DIDIER HAQUEPEE CB Plan of Treatment: Future Appointments (+ 6 months) and Future Tests (+/- 45 days) The Plan of Treatment section includes future care activities for the patient from all [place] [facility]. This section includes future appointments and future orders which are active, pending or scheduled. Future Appointments This section includes appointments that were scheduled to occur 6 months from the date of the Encounter, up to a maximum of 20 appointments. The data comes from all [place] treatment facilities. Appointment Date/Time Appointment Type Appointme nt Facility Name Mar 11, 2023 11:00 AM AMBULATORY - REHAB [facility] Mar 28, 2023 10:00 AM AMBULATORY - NONE [facility] Mar 28, 2023 10:30 AM AMBULATORY - SURGERY [facility] Apr 08, 2023 10:00 AM AMBULATORY - NONE [facility] Aug 12, 2023 10:30 AM AMBULATORY - NONE [facility] Aug 15, 2023 09:30 AM AMBULATORY - NONE [facility] Aug 20, 2023 01:00 PM AMBULATORY - SURGERY [facility] Aug 27, 2023 08:30 AM AMBULATORY - NONE [facility] Lab Results: +/- 30 days of the encounter This section includes the Chemistry and Hematology Lab Results on record with [place] for the patient. Radiology Reports and Pathology Reports are provided separately, in subsequent sections. Lab Results This section contains the Chemistry/Hematology Results that were resulted 30 days before or 30 daysafter the date of the Encounter. Date/Time Source Result Type Result - Unit Interpretation Reference Range Comment Feb 26, 2023 02:28 PM [facility] HEMOGLOBIN A1C Specimen Type: BLOOD Comment: Values [...] Feb 26, 2023 02:13 PM Reporting Lab: [address] Performing Lab: [place] [id number] HEMOGLOBIN A1C 5.2 4.0-6.0 Feb 26, 2023 02:28 PM [facility] TSH W/REFLEX TO FREE T4 Specimen Type: PLASMA No comment entered. Ordering Provider: DIDIER HAQUE Report Released Date/Time: Feb 26, 2023 02:13 PM Reporting Lab: [address] Performing Lab: [address] TSH 0.49 0.35-4.94 Feb 26, 2023 02:28 PM [facility] TESTOSTERONE Specimen Type: SERUM No comment entered. Ordering Provider: DIDIER HAQUE Report Released Date/Time: Feb 26, 2023 02:13 PM Reporting Lab: [place] [id number] Performing Lab: [place] [id number] TESTOSTERONE [phone] Feb 26, 2023 02:28 PM [facility] LIPID PANEL,NON-FASTING Specimen Type: PLASMA No comment entered. Ordering Provider: DIDIER HAQUE Report Released Date/Time: Feb 26, 2023 02:13 PM Reporting Lab: [facility] [address] Performing Lab: [place] [id number] CHOLESTEROL 199 See_Comment .HDL 51 See_Comment LDL CALCULATION 123 H See_Comment VLDL CALCULATION 25 See_Comment NON HDL CHOLESTEROL 148 H See_Comment TRIG(NON FASTING) 124 See_Comment Feb 26, 2023 02:28 PM [facility] COMPREHENSIVE METABOLIC PANEL+MG Specimen Type: PLASMA No comment entered. Ordering Provider: DIDIER HAQUE Report Released Date/Time: Feb 26, 2023 02:13 PM Reporting Lab: [facility] [id number] Performing Lab: [facility] [address] CREATININE 1.4 H 0.7-1.2 UREA NITROGEN 20 8-26 GLUCOSE 80 70-100 SODIUM 140 136-145 POTASSIUM 4.4 3.5-5.1 CHLORIDE 105 98-107 CO2 27 22-29 CALCIUM 9.4 8.4-10.2 PROTEIN,TOTAL 7.5 6.0-8.3 ALBUMIN 4.4 3.5-5.2 BILIRUBIN, TOTAL 0.6 0.2-1.2 MAGNESIUM 2.1 1.6-2.6 ANION GAP 8 5-15 ALKALINE PHOSPHATASE 56 40-150 ALT/SGPT 30 See_Comment AST/SGOT 28 See_Comment .CREAT EGFR(CKD-EPI) 60 See_Comment Feb 26, 2023 02:28 PM [facility]AN[facility] POE CBC & DIFF Specimen Type: BLOOD Comment: Automated Differential Performed Ordering Provider: DDIIER HAQUE Report Released Date/Time: Feb 26, 2023 02:13 PM Reporting Lab: [facility] [id number] Performing Lab: [facility] [id number] WBC 9.74 4.0-11.0 RBC 5.24 4.6-6.2 HGB [...] RO) 0.3 ABS IMMATURE GRAN 0.03 0-0.1 Vital Signs: All taken on the encounter date This section contains inpatient and outpatient Vital Signs collected on the date of the Encounter. Date/Time Temperature Pulse Blood Pressure Respiratory Rate SP02 Pain Height Weight Body Mass Index Source Feb 26, 2023 01:42 PM 97.9 F 89 /min 110/75 mm[Hg] 16 /min 95 % 4 68.5 in 191 lb 29 [facility] Social History: Smoking Status (Most current) and Tobacco Use (All prior to encounter date) This section includes the most current, and the historical, smoking and tobacco- related health factors from the [place] facility where the Encounter took place. Current Smoking Status This section includes the most current smoking, or tobacco-related health factor, from the [place] facility where the Encounter took place. Date/Time Current Smoking Status Comment Facil ity Feb 26, 2023 01:30 PM VA-TOBACCO NEVER USED [facility] Tobacco Use History This section includes a history of the smoking, or tobacco-related health factors, that were collected on or before the date of the Encounter. The data comes from the [place] facility where the Encounter took place. Date/Time Smoking Status/Tobacco Use Comment F acility Feb 22, 2022 01:00 PM VA-TOBACCO NEVER USED [facility] Mar 20, 2021 11:00 AM VA-TOBACCO NEVER USED [facility] Feb 11, 2020 10:37 AM VA-TOBACCO NEVER USED [facility] Feb 24, 2019 02:07 PM VA-TOBACCO NEVER USED [facility] Feb 17, 2018 04:20 PM LIFETIME NON-TOBACCO USER [facility] Radiology Reports: +/- 30 days of the [...] the Encounter. The data comes from all [place] treatment facilities. Date/Time Radiology Report Provider Source Mar 28, 2023 10:11 AM FOOT RIGHT 3 VIEWS OR MORE: DUSTIN TAYLOR [id number] M Exm Date: MAR 28, 2023@10:11 Req Phys: RUMA SOLIS Pat Loc: [facility] POD ANNUAL RAMP (Req'g Loc Img Loc: MAIN X-RAY Service: Unknown (Case [id number] COMPLETE) FOOT RIGHT 3 VIEWS OR MORE (RAD Detailed) CPT:16813 Proc Modifiers : RIGHT, WEIGHT BEARING Reason for Study: Pain Clinical History: [place] IS NOT under investigation for COVID-19 or is COVID-19 negative Toe pain after kicking snow off tires 7 months ago. Responsible provider name and phone number to notify for critical findings if other than user placing the order and pager listed below: User placing orders pager: [phone] LAST CREATININE____ Report Status: Verified Date Reported: MAR 28, 2023 Date Verified: MAR 28, 2023 Asp Net C Developer E-Sig:/ES/MATT DIAZ MD Report: EXAMINATION: FOOT RIGHT 3 VIEWS OR MORE CLINICAL INDICATION: Pain, toe pain after kicking snow off tires 7 months ago TECHNIQUE: AP, lateral and oblique views of the right foot. COMPARISON: None. Impression: FINDINGS/impression: No acute displaced fracture or traumatic malalignment. Mild degenerative changes at the 1st MTP and IP joint spaces. Exostosis involving the lateral distal aspect of the 4th middle phalanx. No suspicious osseous lesion. Primary Interpreting Staff: MATT DIAZ MD, RADIOLOGIST (Asp [employer] C Developer) /[facility] Encounter Notes: All associated encounter notes This section contains the clinical notes associated to the Encounter. Date/Time Encounter Note(s) Provider Source Feb 27, 2023 08:49 AM LETTERS: LOCAL TITLE: FOLLOW UP RESULTS LETTER STANDARD TITLE: LETTERS DATE OF NOTE: FEB 27, 2023@08:49 ENTRY DATE: FEB 27, 2023@08:50:05 AUTHOR: RIKA HAQUE EXP COSIGNER: URGENCY: STATUS: COMPLETED [facility] [address] [place] [address] Jan DUSTIN MUNOZ BRANDON [address] [facility] [address] Dear [place]: I am writing to inform you of the results of testing that you had done recently at the [facility]. - Cholesterol Tests (HDL = good and LDL = bad) CHOLESTEROL 199 (02/26/23) (prefer less than 200) HDL 51 (02/26/23) (prefer more than 39) LDL CALCULATION 123 H (02/26/23) (prefer less than 100) MEASURED LDL____ (prefer less than 100) TRIGLYCERIDE____ (prefer less than 150) - Complete Blood Count (red/white blood cell counts and platelets) White count: WBC 9.74 (02/26/23) (normal is 4.0-11.0) Hemoglobin: HGB 16.1 (02/26/23) (normal Male is 13.5-17.9; Female is 11.5-16) Hematocrit: HCT 47.8 (02/26/23) (normal Male is 41-54; Female is 34.5- 48) Platelets: PLT 222 (02/26/23) (normal is 150-400) - Electrolytes including sodium and potassium SODIUM 140 (02/26/23) (normal is 136-145) POTASSIUM 4.4 (02/26/23) (normal is 3.5-5.1) - Calcium CALCIUM 9.4 (02/26/23) (normal is 8.5-10.1) - Kidney function CREATININE 1.4 H (02/26/23)(normal Male = less than 1.2; normal Female = less than 1.0)) UREA NITROGEN 20 (02/26/23) (normal Male is 8-26; normal Female is 10- 20) - Blood Sugar GLUCOSE 80 (02/26/23) (normal is 70 - 100 if fasting) - Liver function Tests AST/SGOT 28 (02/26/23) (normal 15-37) ALT/SGPT 30 (02/26/23) (normal 13-61) ALK PHOSPHATASE 56 (02/26/23) (normal 45-117) BILIRUBIN, TOTAL 0.6 (02/26/23) (normal 0.2-1.0) - Hemoglobin A1C (normal 4.0-6.0) Collection DT Spec HGBA1C 02/26/2023 14:28 BLOOD 5.2 02/22/2022 14:01 BLOOD 5.9 12/28/2014 11:54 BLOOD 5.1 - Thyroid Function: TSH 0.49 (02/26/23) (normal 0.3-5.0) Additional Comments: Your ldl or badcholesterol is higher than we would like. This increases your risk of stroke and heart attack. You need to watch your diet more closely and get 30 minutes of exercise a day. We can recheck in 3 months. Your testotsertone is low normal so we will wait to hear from pharm abou the conversion. Everything esle looks good. If you have any further questions or problems, please contact our nursing staff or provider at the following number: [phone]. Sincerely, RIKA HAQUE PHYSICIAN RIKA HAQUE [facility] Feb 26, 2023 02:33 PM MEDICATION MGT NOT E: LOCAL TITLE: MEDICATION RECONCILIATION NOTE STANDARD TITLE: MEDICATION MGT NOTE DATE OF NOTE: FEB 26, 2023@14:33 ENTRY DATE: FEB 26, 2023@14:33:13 AUTHOR: RIKA HAQUE EXP COSIGNER: URGENCY: STATUS: COMPLETED MEDICATION RECONCILIATION Active Outpatient Medications (excluding Supplies): Outpatient Medications Status 1) SILDENAFIL CITRATE 100MG TAB TAKE ONE-HALF TABLET BY ACTIVE MOUTH NEEDED 1 HOUR BEFORE ANTICIPATED SEXUAL ACTIVITY--MAXIMUM 4 DOSES FOR 30-DAY SUPPLY. FOR ERECTIONS 2) SILDENAFIL CITRATE 100MG TAB TAKE ONE-HALF TABLET BY PENDING MOUTH NEEDED 1 HOUR BEFORE ANTICIPATED SEXUAL ACTIVITY--MAXIMUM 4 DOSES FOR 30-DAY SUPPLY. FOR ERECTIONS 3) TESTOSTERONE CYP 200MG/ML 1ML IN OIL INJECT 200MG ACTIVE INTRAMUSCULAR EVERY 2 WEEKS FOR HYPOGONADISM (200MG IS 1ML) -DISCARD VIAL AFTER WITHDRAWING A SINGLE DOSE 4) TESTOSTERONE CYP 200MG/ML 1ML IN OIL INJECT 200MG PENDING INTRAMUSCULAR EVERY 2 WEEKS FOR HYPOGONADISM (200MG IS 1ML) -DISCARD VIAL AFTER WITHDRAWING A SINGLE DOSE Medications listed above are accurate and should continue as ordered. /mindy/ RIKA HAQUE PHYSICIAN Signed: 02/26/2023 14:33 RIKA HAQUE [facility] Feb 26, 2023 02:09 PM H & P NOTE: LOCAL TITLE: [facility] ANNUAL VISIT STANDARD TITLE: H & P NOTE DATE OF NOTE: FEB 26, 2023@14:09 ENTRY DATE: FEB 26, 2023@14:09:41 AUTHOR: RIKA HAQUE COSIGNER: URGENCY: STATUS: COMPLETED [facility] ANNUAL VISIT Has ADDENDA Annual visit Non [facility] Providers: none Chief complaint: Patient is here for a routine annual visit. HPI: Aminah gann is doing ok. He has problems with his right great toe. last winter he kicked a wall to get the snow off his boot and hit the great toe head on. Sinice that time he has had pain in the first knuckle of the toe and it is hard to bend. Type of shoes does not matter. Secondly he has pain on the medial side of the left knee along the collateral ligament. He does nto recall an injury. It hurts when he crouches down. lastly he woudl like to switch from testosterone injection to gel since he is tired of giving himself tshots. Assessment/Plan: 1. routine labst brian 2. ophtho due given phone number 3. dentist sees regularly 4. Audio tinnitus but thinnks his hearing is worse, givennumber to schedule 5. Mdications reviewed, will check with pharm d abou switch to get form of testostrone 8. Podiatry consutl for toe 9. PT for left knee Labs and medications reviewed with patient. Discussed plan of care, patient verbalized understanding and agrees with plan. FU in 1 year for annual exam, sooner with any concerns. Clinical Reminders: Past Medical History: Computerized Problem List is the source for the followin. BACKACHE NOS ACTIVE 2. Osteoarthritis ACTIVE 3. Major depressive disorder (SNOMED CT [id number]) ACTIVE 4. Generalized anxiety disorder (SNOMED CT [id number]) ACTIVE 5. Sleep apnea (SNOMED CT [id number]) ACTIVE doesn't wear CPAP because can't have something covering his face 6. Rupture of tendon of biceps ACTIVE 7. Chronic pain ACTIVE discussed likely dx fibromyalgia; see 03/02/19 [facility] note for details 8. Insomnia ACTIVE 9. Pain of right temporomandibular joint ACTIVE 10. 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 H/O: surgery ACTIVE s/p Vasectomy s/p Bilteral Distal Biceps repair separately s/p C6-7 Foraminotomy s/p lower back fusion L4-S1 WITH HARDWARE s/p wisdom teeth extraction 12. Body mass index 25-29 - overweight ACTIVE 13. Male hypogonadism ACTIVE 14. Erectile dysfunction ACTIVE 15. Prediabetes ACTIVE 16. Allergic Rhinitis ([facility] [id number]) ACTIVE PSH: SURGERIES - s/p back surg x 2, s/p right becep surg bilat, Social History: Alcohol: 4 drinks 4 times a month Tobacco: none Marital Status:, divorcd lives alone has kids part of the time Occupation: retired Family History: mom 50's dad living 75 1 [employer] [facility] [employer]ANCH OF SERVICE: [employer] SUPERFICIAL SCARS 10% SC MAJOR DEPRESSIVE DISORDER 100% SC LIMITED EXTENSION OF THIGH 0% SC HEMORRHOIDS 0% SC LIMITED EXTENSION OF THIGH 0% SC LIMITED FLEXION OF THIGH 0% SC MIGRAINE HEADACHES 10% SC LUMBOSACRAL OR CERVICAL STRAIN 20% SC THIGH CONDITION 10% SC BURSITIS 10% SC THIGH CONDITION 10% SC SCARS 0% SC TINNITUS 10% SC SERVICE CONNECTED % - 100 ROS: CONS: negative for fever HEENT: negative CV: neg for acute chest pain, palpitation, RESPIRATORY: neg for acute dyspnea, cough, wheeze GI: neg for n/v, diarrhea, constipation : neg for dysuria, hematuria, MSK:neg for new difficulty with joint discomfort, myalgias, weakness. NEURO: neg for new motor or sensory complains SKIN: neg for new rash, lesion Physical Exam: Vitals: Blood Pressure: 110/75 (02/26/2023 13:42) Pulse: 89 (02/26/2023 13:42) Pulse Oximetry: 95% (02/26/2023 13:42) Resp: 16 (02/26/2023 13:42) Temp: 97.9 F [36.6 C] (02/26/2023 13:42) Height: 68.5 in [174.0 cm] (02/26/2023 13:42) Weight: 191 lb [86.64 kg] (02/26/2023:42) BMI:28.7 GENERAL:well developed, well nourished pt in nad. EYES:PERRLA,EOMI, conjuntiva clear, no discharge. EARS:canals clear, TMs intact NOSE:Nostrils patent, no discharge, THROAT:No enlarged tonsils, no inflammation, no exudate or ulcers. NECK: supple, no obvious thyromegaly bearded HEART:Regular rate and rhythm , no obvious murmurs/rubs RESPIRATORY: Lungs clear to auscultation b/l, no rales or wheezes. ABDOMEN:soft, nontender, nondistended, no organomegaly, normal bs. MSK:normal gait, moves all extremities, no joints swelling, rom normal.mild discomfort along medial collatral lig of left knee, pain to palpation of great toe fist joint, painful to move up adn down NEURO:alert and oriented, cranial nerves II-XII intact, speech clear, strength equal b/l, normal gait and movement, PSYCH: normal affect, well groomed SKIN:warm adn dry, well tanned, no rash or suspicious lesions EXT: no cyanosis, no edema lower ext b/l Allergies: CYCLOBENZAPRINE (May 03, 2020) METHOCARBAMOL (May 03, 2020) SLT - Lab Tests Selected No data available for: REGIONAL ALLERGY PROFILE Vaccinations: IM - Immunizations Immunization Series Date Facility Reaction Info INFLUENZA, SEASONAL, INJECTABLE [facility] * Outside <C> INFLUENZA, UNSPECIFIED FORMULATIO* Natl Guard* TDAP Natl Guard <C> See the Detailed Immunizations Health Summary Component[DIM] for Comments Labs: pending /es/ RIKA L GARLAND PHYSICIAN Signed: 02/26/2023 14:31 02/26/2023 ADDENDUM STATUS: COMPLETED [place] is tired of giving himselft shots and woudl like to try testosterone gel. Can you please discuss with him and then convert his current dosage to make switch. /mindy/ RIKA HAQUE PHYSICIAN Signed: 02/26/2023 14:32 Receipt Acknowledged By: * AWAITING SIGNATURE * LEANNE GREEN 02/26/2023 ADDENDUM STATUS: COMPLETED Please update banner to [facility] [employer] /mindy/ [facility] Signed: 02/26/2023 15:05 Receipt Acknowledged By: * AWAITING SIGNATURE * PANDA SYLVESTER,RIKA [facility] Feb 26, 2023 01:43 PM PRIMARY CARE NURSI MAVERICK NOTE: LOCAL TITLE: [facility] NURSING PROGRESS NOTE STANDARD TITLE: PRIMARY CARE NURSING NOTE DATE OF NOTE: FEB 26, 2023@13:43 ENTRY DATE: FEB 26, 2023@13:43:57 AUTHOR: LAURIE RUEDA EXP COSIGNER: URGENCY: STATUS: COMPLETED [facility] NURSING PROGRESS NOTE Has ADDENDA TYPE OF VISIT: Appointment Check In Type of appointment: In-person appointment REASON FOR VISIT: Annual ALLERGIES: CYCLOBENZAPRINE (May 03, 2020) METHOCARBAMOL (May 03, 2020) VITAL SIGNS: Blood Pressure: 110/75 (02/26/2023 13:42) Pulse: 89 (02/26/2023 13:42) Respiration: 16 (02/26/2023 13:42) Temperature: 97.9 F [36.6 C] (02/26/2023 13:42) Weight: 191 lb [86.64 kg] (02/26/2023 13:42) Height: 68.5 in [174.0 cm] (02/26/2023 13:42) BMI: 28.7 O2 Sat: 95% (02/26/2023 13:42) Pain: 4 (02/26/2023 13:42) PAIN SCREEN: Patient is having significant pain that they would like to talk to their provider about today. Old (Chronic) (began more than 6 months ago) Patient states their average pain this past week is 4 Patient states the average number on how the chronic pain affects their enjoyment of life the past week is 4 Patient states during the past week the average number on how the pain has interfered with their general activity is 4 MEDICATION Active Outpatient Medications (including Supplies): SILDENAFIL CITRATE 100MG TAB TAKE ONE-HALF TABLET BY MOUTH ACTIVE NEEDED 1 HOUR BEFORE ANTICIPATED SEXUAL ACTIVITY--MAXIMUM 4 DOSES FOR 30-DAY SUPPLY. FOR ERECTIONS TESTOSTERONE CYP 200MG/ML 1ML IN OIL INJECT 200MG ACTIVE INTRAMUSCULAR EVERY 2 WEEKS FOR HYPOGONADISM (200MG IS 1ML) -DISCARD VIAL AFTER WITHDRAWING A SINGLE DOSE Over the Counter/Herbal Medications: The patient states that they take some outside medications and/or herbals. PTSD Screening: PC-PTSD-5 A PTSD screening test (PC-PTSD-5) was positive (score=0). IN THE PAST MONTH, have you ever had any experience that was so frightening, horrible or upsetting, such as: A serious accident or fire a physical or sexual assault or abuse An earthquake or flood A war Seeing someone be killed or seriously injured Having a loved one through homocide or suicide Have you ever experienced this kind of event? YES 1. Had nightmares about the event(s) or thought about the event(s) when you did not want to? NO 2. Tried hard not to think about the event(s) or went out of your way to avoid situations that reminded you of the event(s)? NO 3. Been constantly on guard, watchful, or easily startled? NO 4. [place] numb or detached from people, activities, or your surroundings? NO 5. [place] guilty or unable to stop blaming yourself or others for the event(s) or any problems the event(s) may have caused? NO ADV DIR Notification and Screening: ADVANCE DIRECTIVE NOTIFICATION: Patient was given written notification of the following rights: 1. Accept or refuse any medical treatment. 2. Complete a durable power of defense attorney for health care. 3. Complete a living will. ADVANCE DIRECTIVE SCREENING: Does patient have an Advance Directive? The patient does not have an Advance Directive. The patient wishes to create an Advance Directive for health care. The patient has no questions about completing the Advance Directive forms. Toxic Exposure Screening: The /caregiver was asked if they believe the experienced any toxic exposure(s), such as Airborne Hazards and Open Burn Pit, [place] War related exposures, Agent [place], Radiation, contaminated water at [place] or other such exposures, while serving in the [employer]. 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 Health/Medical Questions All patients who report a health/medical concern will receive follow-up from a clinician. For urgent or emergent concerns, they were advised to follow local facility policy. Contact information for local resources: - Veterans Benefits for claims submission: Have the call or have them visit the following web address for online scheduling: [email or web address]/ s/ - [place] Healthcare Enrollment: 9-750-190-VETS ([phone]) - Find a [place] Clinical Informatics Educator (VSO): Have the call 4-954-ISQHSLU or look up their VSO at: https://[email or web address].org/find-[email or web address]- cvso.html - [facility] Navigators: Dr. Fabio Conway: [phone] Dr. Jer Arriola: [phone] Maria Toxic Exposure Screening Follow-Up reminder is needed. Name of person notified: pact pcp Depression Screening: Perform PHQ-2 A PHQ-2 screen was performed. The score was 0 which is a negative screen for depression. Over the past two weeks, how often have you been bothered by the following problems? 1. Little interest or pleasure in doing things Not at all 2. Feeling down, depressed, or hopeless Not at all Alcohol Use Screen (AUDIT-C): Alcohol Screen: SCREEN FOR ALCOHOL (AUDIT-C) An alcohol screening test (AUDIT-C) was negative (score=2). 1. How often did you have a drink containing alcohol in the past year? Two to four times a month 2. How many drinks containing alcohol did you have on a typical day when you were drinking in the past year? Zero drinks 3. How often did you have six or more drinks on one occasion in the past year? Never Tobacco Use Screening: The patient has never used tobacco. Nursing Annual Screening: Fall History Screen During the past 12 months, have you had any falls? Patient does not report any falls in the past 12 months. MEDICATIONS: Patient does not have an active prescription for one of the following medications: Antihypertensives, Antidepressants, Antipsychotics, Diuretics, or Opioid Analgesics (Contolled Substance medications used for pain). FALL RISK ADVICE: Fall Risk Advice provided. Handout entitled Fall Prevention At Home reviewed and given to

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
--- OUTSIDE RECORDS SUMMARY | 2023-10-11 15:49 | XMS_ITS | Encounter Summary ---
Author Name Department of Vetera [facility] Organization Department of Vetera [facility] Address [address] [place] [address] Support Name Relationship Address Phone BRANDONGILMAMELQUIADES L Next of Kin [address] [place] [address] MELQUIADES TAYLOR Emergency Contact [address] [place] [address] Insurance Providers: All historical and [...] PART B January 01, 2016 PART B [id number] DUSTIN TAYLOR JR PATIENT MEDICARE (WNR) MEDICARE (M) PART A January 01, 2016 PART A [id number] DUSTIN TAYLOR JR PATIENT Selected Encounter This section includes the information on record at [place] for the Encounter. 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 Date/Time Primary/Secondary Diagnosis Diagnosis Name Provider Source Mar 11, 2023 12:00 PM PRIMARY Chondromalacia, right shoulder MARIBEL SANTIZO [facility] Plan of Treatment: Future Appointments (+ 6 months) and Future Tests (+/- 45 days) The Plan of Treatment section includes future care activities for the patient from [facility]. This section includes future appointments and future orders which are active, pending or scheduled. Future Appointments This section includes appointments that were scheduled to occur 6 months from the date of the Encounter, up to a maximum of 20 appointments. The data comes from all [facility]. Appointment Date/Time Appointment Type Appointme nt Facility Name Mar 28, 2023 10:00 AM AMBULATORY - NONE [facility] Mar 28, 2023 10:30 AM AMBULATORY - SURGERY [facility] Apr 08, 2023 10:00 AM [facility] Aug 12, 2023 10:30 AM AMBULATORY - NONE [facility] Aug 15, 2023 09:30 AM AMBULATORY - NONE [facility] Aug 20, 2023 01:00 PM AMBULATORY - SURGERY [facility] Aug 27, 2023 08:30 AM AMBULATORY - NONE [facility] Aug 30, 2023 10:01 AM AMBULATORY - NONE [facility] Aug 30, 2023 02:00 PM AMBULATORY - NONE [facility] Lab Results: +/- 30 days of the encounter This section includes the Chemistry and Hematology Lab Results on record with [place] for the patient. Radiology Reports and Pathology Reports are provided separately, in subsequent sections. Lab Results This section contains the Chemistry/Hematology Results that were resulted 30 days before or 30 daysafter the date of the Encounter. Date/Time Source Result Type Result - Unit Interpretation Reference Range Comment Feb 26, 2023 02:28 PM [facility] HEMOGLOBIN A1C Specimen Type: BLOOD Comment: [...] 2023 02:13 PM Reporting Lab: [facility] [id number] Performing Lab: [facility] [address] HEMOGLOBIN A1C 5.2 4.0-6.0 Feb 26, 2023 02:28 PM [facility] TSH W/REFLEX TO FREE T4 Specimen Type: PLASMA No comment entered. Ordering Provider: DIDIER HAQUE Report Released Date/Time: Feb 26, 2023 02:13 PM Reporting Lab: [facility] [id number] Performing Lab: [place] [id number] TSH 0.49 0.35-4.94 Feb 26, 2023 02:28 PM [facility] TESTOSTERONE Specimen Type: SERUM No comment entered. Ordering Provider: DIDIER HAQUE Report Released Date/Time: Feb 26, 2023 02:13 PM Reporting Lab: [facility] [phone] Performing Lab: [place] [id number] TESTOSTERONE [phone] Feb 26, 2023 02:28 PM [facility] LIPID PANEL,NON-FASTING Specimen Type: PLASMA No comment entered. Ordering Provider: DIDIER HAUQE Report Released Date/Time: Feb 26, 2023 02:13 PM Reporting Lab: [facility] [address] Performing Lab: [facility] [address] CHOLESTEROL 199 See_Comment .HDL 51 See_Comment LDL CALCULATION 123 H See_Comment VLDL CALCULATION 25 See_Comment NON HDL CHOLESTEROL 148 H See_Comment TRIG(NON FASTING) 124 See_Comment Feb 26, 2023 02:28 PM [facility] CBC & DIFF Specimen Type: BLOOD Comment: Automated Differential Performed Ordering Provider: DIDIER HAQUE Report Released Date/Time: Feb 26, 2023 02:13 PM Reporting Lab: [facility] [address] Performing Lab: [facility] [address] WBC 9.74 4.0-11.0 RBC 5.24 4.6-6.2 HGB [...] 0.03 0-0.1 Feb 26, 2023 02:28 PM [facility] COMPREHENSIVE METABOLIC PANEL+MG Specimen Type: PLASMA No comment entered. Ordering Provider: DIDIER HAQUE Report Released Date/Time: Feb 26, 2023 02:13 PM Reporting Lab: [facility] [id number] Performing Lab: [facility] [phone] CREATININE 1.4 H 0.7-1.2 UREA NITROGEN 20 8-26 GLUCOSE 80 70-100 SODIUM 140 136-145 POTASSIUM 4.4 3.5-5.1 CHLORIDE 105 98-107 CO2 27 22-29 CALCIUM 9.4 8.4-10.2 PROTEIN,TOTAL 7.5 6.0-8.3 ALBUMIN 4.4 3.5-5.2 BILIRUBIN, TOTAL 0.6 0.2-1.2 MAGNESIUM 2.1 1.6-2.6 ANION GAP 8 5-15 ALKALINE PHOSPHATASE 56 40-150 ALT/SGPT 30 See_Comment AST/SGOT 28 See_Comment .CREAT EGFR(CKD-EPI) 60 See_Comment Vital Signs: All taken on the encounter date This section contains inpatient and outpatient Vital Signs collected on the date of the Encounter. Date/Time Temperature Pulse Blood Pressure Respiratory Rate SP02 Pain Height Weight Body Mass Index Source Mar 11, 2023 10:40 AM 98.4 F 93 /min 124/82 mm[Hg] 17 /min 98 % 3 194.9 lb 29 [place] [facility] Social History: Smoking Status (Most current) and Tobacco Use (All prior to encounter date) This section includes the most current, and the historical, smoking and tobacco- related health factors from the [place] facility where the Encounter took place. Current Smoking Status This section includes the most current smoking, or tobacco-related health factor, from the [place] facility where the Encounter took place. Date/Time Current Smoking Status Comment Facil ity Nov 20, 2016 09:03 AM LIFETIME NON-TOBACCO USER [facility] Tobacco Use History This section includes a history of the smoking, or tobacco-related health factors, that were collected on or before the date of the Encounter. The data comes from the [place] facility where the Encounter took place. Date/Time Smoking Status/Tobacco Use Comment F acility Jun 29, 2016 07:34 AM INPT NO TOBACCO USE IN LAST 30 D AYS [facility] Dec 12, 2015 12:47 PM LIFETIME NON-TOBACCO USER [facility] Dec 28, 2014 12:34 PM LIFETIME NON-TOBACCO USER [facility] Jul 08, 2012 07:40 AM LIFETIME NON-TOBACCO USER [facility] Radiology Reports: +/- 30 days of the [...] the Encounter. The data comes from all [facility] facilities. Date/Time Radiology Report Provider Source Mar 28, 2023 10:11 AM FOOT RIGHT 3 VIEWS OR MORE: DUSTIN TAYLOR [id number] -[id number] M Exm Date: MAR 28, 2023@10:11 Req Phys: RUMA SOLIS Pat Loc: [facility] POD ANNUAL RAMP (Req'g Loc Img Loc: MAIN X-RAY Service: Unknown (Case [id number] COMPLETE) FOOT RIGHT 3 VIEWS OR MORE (RAD Detailed) CPT:05011 Proc Modifiers : RIGHT, WEIGHT BEARING Reason for Study: Pain Clinical History: [place] IS NOT under investigation for COVID-19 or is COVID-19 negative Toe pain after kicking snow off tires 7 months ago. Responsible provider name and phone number to notify for critical findings if other than user placing the order and pager listed below: User placing orders pager: [phone] LAST CREATININE____ Report Status: Verified Date Reported: MAR 28, 2023 Date Verified: MAR 28, 2023 [employer] E-Sig:/ES/MATT DIAZ MD Report: EXAMINATION: FOOT RIGHT [...] Primary Interpreting Staff: MATT DIAZ MD, RADIOLOGIST ([employer]) /MATT VERA [facility] Encounter Notes: All associated encounter notes This section contains the clinical notes associated to the Encounter. Date/Time Encounter Note(s) Provider Source Mar 11, 2023 12:01 PM PAIN CONSULT: LOCAL TITLE: IMAGING REQUEST CONSULT STANDARD TITLE: PAIN CONSULT DATE OF NOTE: MAR 11, 2023@12:01 ENTRY DATE: MAR 11, 2023@12:01:06 AUTHOR: HANNAH SANTIZO EXP COSIGNER: URGENCY: STATUS: COMPLETED Images were taken to facilitate interventional procedure carried out by physician. /mindy/ HANNAH SANTIZO DO PHYSICIAN, PM&R Signed: 03/11/2023 12:01 HANNAH SANTIZO [facility] Mar 11, 2023 11:16 AM PHYSICAL MEDICINE REHAB CONSULT: LOCAL TITLE: REHAB MEDICINE CONSULT STANDARD TITLE: PHYSICAL MEDICINE REHAB CONSULT DATE OF NOTE: MAR 11, 2023@11:16 ENTRY DATE: MAR 11, 2023@11:16:45 AUTHOR: HANNAH SANTIZO EXP COSIGNER: URGENCY: STATUS: COMPLETED 52 y/o returns for repeat R glenohumeral joint PRP injection. He got good results with previous injection and would like to repeat. No changes in health history today and no infections, ready to proceed. Procedure: Ultrasound-guided platelet rich plasma therapy Location: Right glenohumeral Indication: Recalcitrant shoulder pain Pre-Procedure Diagnosis: chondromalacia Post-Procedure Diagnosis: chondromalacia Findings: Limited ultrasound over the posterior right shoulder showed no glenohumeral joint effusion. After obtaining written informed consent (IMedConsent) discussing potential risks (bleeding, infection, soft tissue injury) and benefits, a 90 mL of patient's blood was collected by the mailroom associate team then processed using a Periscape centrifuge system at 2% hematocrit. A total of 5 mL of salmon-hued platelet rich plasma was procured of which 1 mL was submitted for analysis. Procedure site was marked per protocol and a time out was performed. The patient was placed in a left lateral recumbent position. The procedure site was prepped with Chloraprep. Using sterile technique, 22-gauge 1.5 needle was inserted and the needle tip was directed under ultrasound-guidance to the glenohumeral joint capsule with systematic infiltration of 2 mL of lidocaine 1% without epinephrine. The syringe was then replaced and injection completed with 3cc of PRP. The needle was removed, the injection site was cleansed with alcohol wipe, and a sterile bandaid was placed. The patient tolerated the procedure well without complication. Precautions and education were provided. Impression: 1. Limited diagnostic ultrasound of the posterior right shoulder showed no joint effusion. 2. Technically successful right glenohumeral intraarticular platelet rich plasma injection without complications. ADDITIONAL RECOMMENDATIONS AND PRECAUTIONS -Ultrasound guidance utilized secondary to nearby neurovascular structures. -The patient should continue to avoid all NSAIDs and other anti-inflammatory agents for at least 2 weeks prior to and 4 weeks following the most recent PRP injection. -Resume routine pain management and health monitoring and management with primary medical teams. -The patient should track and document the response to today's procedure and share this information upon interval follow-up. Benefit is typically appreciated in the spectrum of weeks to months and is gradual in its effect. -Return to clinic in 6 months via [facility] for interval evaluation. PRECAUTIONS -Activity as tolerated. -No submersion in water for 24 hours. May shower. -Keep injection site clean, dry and intact. Follow-up in 6 months. /mindy/ HANNAH SANTIZO DO PHYSICIAN, PM&R Signed: 03/11/2023 12:00 HANNAH SANTIZO [facility] Mar 11, 2023 10:43 AM PHYSICAL MEDICINE REHAB NURSING NOTE: LOCAL TITLE: REHAB MEDICINE CLINIC NURSING NOTE STANDARD TITLE: PHYSICAL MEDICINE REHAB NURSING NOTE DATE OF NOTE: MAR 11, 2023@10:43 ENTRY DATE: MAR 11, 2023@10:43:54 AUTHOR: ABIGAIL ULLOA EXP COSIGNER: URGENCY: STATUS: COMPLETED REHAB MEDICINE CLINIC NURSING NOTE Has ADDENDA Plasma Rich Protein Procedure Note Pre-procedure Patient escorted to clinic via Ambulatory Patient is scheduled for: PRP-RIGHT SHOULDER Patient was identified by using full name and social security number and/or date of : Yes Planned procedure discussed with patient and verified to be correct: Yes Patient/Family/Caregiver indicated readiness to learn Yes Barriers to learning: none Patient Education: Participant(s): Patient Teaching Strategy: 1:1 Medications reviewed: Yes Active Outpatient Medications (including Supplies): Outpatient Medications Status 1) SILDENAFIL CITRATE 100MG TAB TAKE ONE-HALF TABLET BY ACTIVE MOUTH NEEDED FOR ERECTILE DYSFUNCTION 1 HOUR BEFORE ANTICIPATED SEXUAL ACTIVITY 2) TESTOSTERONE 1.62% 20.25MG/PUMP TOP GEL APPLY 2 PUMPS ACTIVE TOPICALLY ONCE A DAY FOR LOW TESTOSTERONE Patient reports the following changes regarding the current pharmacy list of medications: Above medication list reviewed by patient and no additional medications noted; Medications held per protocol Allergies: CYCLOBENZAPRINE (May 03, 2020) METHOCARBAMOL (May 03, 2020) Vitals: Temperature: 98.4 F [36.9 C] (03/11/2023 10:40) Pulse: 93 (03/11/2023 10:40) Pulse Oximetry: 98% (03/11/2023 10:40) Respirations: 17 (03/11/2023 10:40) Blood Pressure: 124/82 (03/11/2023 10:40) Pain: 3 (03/11/2023 10:40) Labs: CBC Collection DT Spec WBC HGB HCT PLT MCV NEUT LYMPHS 02/26/2023 14:28 BLOOD 9.74 16.1 47.8 222 91.2 51.4 35.8 INR____ Patient has taken Antiplatelets (ASA/Plavix) in the last 5 days? Patient has taken NSAIDS in the last 14 days? Denies Patient taken any antibiotics in the last week? Denies Patient has had steroid injections somewhere in their body within the last 3 months or in the area of the procedure within the last month? Denies Patient has been sick or had any fever/chills in the last week? Denies Patient has had fractures in the past 8 weeks: Denies Has patient had any surgical procedures (including dental) within the last 2 months? Denies Does patient have any upcoming planned surgeries? Denies Patient has a rash or any open wounds? Denies Does patient plan on traveling away from home within 4 days post procedure? No Patient is ? Not applicable Patient has had solid food to eat in the last 24 hours? Yes Patient has increased fluids in the last 24 hours? Yes Patient has a recent history of dizziness/balance problems? Denies Patient has a recent history of fainting or passing out? Denies Patient has a new diagnosis of cancer? Leonides MD performing procedure has been informed of the above contraindicators. /mindy/ WALTER ULLOA LPN LICENSED PRACTICAL NURSE Signed: 03/11/2023 10:48 03/11/2023 ADDENDUM STATUS: COMPLETED Plasma Rich Protein Procedure Note Procedure: Site marking: Site determined radiographically via ultrasound, then marked externally by: Ramona A time out was taken prior to the procedure to verify Confirm correct patient: yes Confirm procedure to be performed: yes Confirm site of the procedure: yes Confirm allergies: yes Confirm position: yes Valid iMedConsent form: yes Staff Physician: Ramona RN: Janiya Complications noted: None Aftercare instructions reviewed with patient/family: Yes /mindy/ MARISOL PALOMO R.N RN Signed: 03/11/2023 11:51 ABIGAIL ULLOA [facility]
--- OUTSIDE RECORDS SUMMARY | 2023-10-11 15:50 | XMS_ITS | Encounter Summary ---
Author Name Department of Vetera Affairs Organization Department of Vetera Affairs Address [address] [place] [address] Support Name Relationship Address Phone MELQUIADES TAYLOR Next of Kin [address] [place] [address] MELQUIADES TAYLOR Emergency Contact [address] [place] [address] Insurance Providers: All historical and [...] PART A January 01, 2016 PART A [id number] [phone] DUSTIN TAYLOR JR PATIENT MEDICARE (WNR) MEDICARE (M) PART B January 01, 2016 PART B [id number] [phone] DUSTIN TAYLOR JR PATIENT Selected Encounter This section includes the information on record at [place] for the Encounter. Date/Time Encounter Type Encounter Description Reason Pro vider Source Feb 18, 2023 12:00 PM Outpatient Encounter TELEPHONE PRIMARY CARE [facility] Encounter Template Text not used by [place] Plan of Treatment: Future Appointments (+ 6 months) and Future Tests (+/- 45 days) The Plan of Treatment section includes future care activities for the patient from all [place] treatmentfacilities. This section includes future appointments and future orders which are active, pending or scheduled. Future Appointments This section includes appointments that were scheduled to occur 6 months from the date of the Encounter, up to a maximum of 20 appointments. The data comes from all [place] treatment facilities. Appointment Date/Time Appointment Type Appointme nt Facility Name Feb 25, 2023 01:00 PM AMBULATORY - REHAB [facility] Feb 26, 2023 01:30 PM AMBULATORY - MEDICINE [facility] Mar 11, 2023 11:00 AM AMBULATORY - REHAB MEDICIN [facility] Mar 28, 2023 10:00 AM AMBULATORY - NONE [facility] Mar 28, 2023 10:30 AM AMBULATORY - SURGERY [facility] Apr 08, 2023 10:00 AM [facility]ORY - NONE [facility] Aug 12, 2023 10:30 AM AMBULATORY - NONE [facility] Aug 15, 2023 09:30 AM AMBULATORY - NONE [facility] Aug 20, 2023 01:00 PM AMBULATORY - SURGERY [facility] Lab Results: +/- 30 days of the encounter This section includes the Chemistry and Hematology Lab Results on record with [facility] for the patient. Radiology Reports and Pathology Reports are provided separately, in subsequent sections. Lab Results This section contains the Chemistry/Hematology Results that were resulted 30 days before or 30 daysafter the date of the Encounter. Date/Time Source Result Type Result - Unit Interpretation Reference Range Comment Feb 26, 2023 02:28 PM [facility] TSH W/REFLEX TO FREE T4 Specimen Type: PLASMA No comment entered. Ordering Provider: DIDIER HAQUE Report Released Date/Time: Feb 26, 2023 02:13 PM Reporting Lab: [facility] [id number] Performing Lab: [facility] [address] TSH 0.49 0.35-4.94 Feb 26, 2023 02:28 PM [facility] HEMOGLOBIN A1C Specimen Type: BLOOD Comment: [...] Feb 26, 2023 02:13 PM Reporting Lab: [facility] [id number] Performing Lab: [facility] [address] HEMOGLOBIN A1C 5.2 4.0-6.0 Feb 26, 2023 02:28 PM [facility] TESTOSTERONE Specimen Type: SERUM No comment entered. Ordering Provider: DIDIER HAQUE Report Released Date/Time: Feb 26, 2023 02:13 PM Reporting Lab: [facility] [id number] Performing Lab: [facility] [address] TESTOSTERONE [phone] Feb 26, 2023 02:28 PM [facility] LIPID PANEL,NON-FASTING Specimen Type: PLASMA No comment entered. Ordering Provider: DIDIER HAQUE Report Released Date/Time: Feb 26, 2023 02:13 PM Reporting Lab: [facility] [id number] Performing Lab: [facility] [address] CHOLESTEROL 199 See_Comment .HDL 51 See_Comment LDL CALCULATION 123 H See_Comment VLDL CALCULATION 25 See_Comment NON HDL CHOLESTEROL 148 H See_Comment TRIG(NON FASTING) 124 See_Comment Feb 26, 2023 02:28 PM [facility] COMPREHENSIVE METABOLIC PANEL+MG Specimen Type: PLASMA No comment entered. Ordering Provider: DIDIER HAQUE Report Released Date/Time: Feb 26, 2023 02:13 PM Reporting Lab: [facility] [address] Performing Lab: [facility] [address] CREATININE 1.4 H 0.7-1.2 UREA NITROGEN 20 8-26 GLUCOSE 80 70-100 SODIUM 140 136-145 POTASSIUM 4.4 3.5-5.1 CHLORIDE 105 98-107 CO2 27 22-29 CALCIUM 9.4 8.4-10.2 PROTEIN,TOTAL 7.5 6.0-8.3 ALBUMIN 4.4 3.5-5.2 BILIRUBIN, TOTAL 0.6 0.2-1.2 MAGNESIUM 2.1 1.6-2.6 ANION GAP 8 5-15 ALKALINE PHOSPHATASE 56 40-150 ALT/SGPT 30 See_Comment AST/SGOT 28 See_Comment .CREAT EGFR(CKD-EPI) 60 See_Comment Feb 26, 2023 02:28 PM [facility] CBC & DIFF Specimen Type: BLOOD Comment: Automated Differential Performed Ordering Provider: GARLAND,REBEC CA L Report Released Date/Time: Feb 26, 2023 02:13 PM Reporting Lab: [facility] [phone] Performing Lab: [facility] [phone] WBC 9.74 4.0-11.0 RBC 5.24 4.6-6.2 HGB [...] and tobacco- related health factors from the [place] facility where the Encounter took place. Current Smoking Status This section includes the most current smoking, or tobacco-related health factor, from the [place] facility where the Encounter took place. Date/Time Current Smoking Status Comment Shayne alston Nov 20, 2016 09:03 AM LIFETIME NON-TOBACCO USER [facility] Tobacco Use History This section includes a history of the smoking, or tobacco-related health factors, that were collected on or before the date of the Encounter. The data comes from the [place] facility where the Encounter took place. Date/Time Smoking Status/Tobacco Use Comment F acility Jun 29, 2016 07:34 AM INPT NO TOBACCO USE IN LAST 30 D AYS [facility] Dec 12, 2015 12:47 PM LIFETIME NON-TOBACCO USER [facility] Dec 28, 2014 12:34 PM LIFETIME NON-TOBACCO USER [facility] Jul 08, 2012 07:40 AM LIFETIME NON-TOBACCO USER [facility] Encounter Notes: All associated encounter notes This section contains the clinical notes associated to the Encounter. Date/Time Encounter Note(s) Provider Source Feb 18, 2023 12:00 PM NONVA CONSULT: LOCAL TITLE: COMMUNITY CARE CONSULT RESULT CHIRIROPRACTIC STANDARD TITLE: NONVA CONSULT DATE OF NOTE: FEB 18, 2023@12:00 ENTRY DATE: MAR 17, 2023@17:14:38 AUTHOR: YAEL ROMEO COSIGNER: URGENCY: STATUS: COMPLETED VistA Imaging - Scanned Document SCANNED DOCUMENT SIGNATURE NOT REQUIRED Electronically Filed: 03/17/2023 by: YAEL ROMEO, RN systems software manager Continuity Writer YAEL ROMEO [facility]
--- OUTSIDE RECORDS SUMMARY | 2023-10-11 15:50 | XMS_ITS | Encounter Summary ---
Author Name [facility] Organization [facility] Address [address] [place] [address] Support Name Relationship Address Phone MELQUIADES TAYLOR Next of Kin [address] [place] [address] MELQUIADES TAYLOR Emergency Contact [address] [place] [address] Insurance Providers: All historical and [...] PART A January 01, 2016 PART A [id number] DUSTIN TAYLOR JR PATIENT MEDICARE (WNR) MEDICARE (M) PART B January 01, 2016 PART B [id number] [phone] DUSTIN TAYLOR JR PATIENT Selected Encounter This section includes the information on record at [place] for the Encounter. Date/Time Encounter Type Encounter Description Reason Pro vider Source Mar 11, 2023 11:09 AM Outpatient Encounter EVENT (HISTORICAL) IHE Encounter Template Text not used by [place] Plan of Treatment: Future Appointments (+ 6 months) and Future Tests (+/- 45 days) The Plan of Treatment section includes future care activities for the patient from all [place] treatmentfacilities. This section includes future appointments and future orders which are active, pending or scheduled. Future Appointments This section includes appointments that were scheduled to occur 6 months from the date of the Encounter, up to a maximum of 20 appointments. The data comes from all [place] treatment facilities. Appointment Date/Time Appointment Type Appointme nt Facility Name Mar 28, 2023 10:00 AM [facility] [place] [facility] [facility] Mar 28, 2023 10:30 AM [facility] [place] [facility] Apr 08, 2023 10:00 AM [facility] NONE [place] [facility] [facility] Aug 12, 2023 10:30 AM [facility]ORY - NONE [facility] Aug 15, 2023 09:30 AM AMBULATORY - NONE [facility] Aug 20, 2023 01:00 PM [facility] [place] [facility] Aug 27, 2023 08:30 AM AM[facility]ULATORY - NONE [facility] Aug 30, 2023 10:01 AM [facility]ONE [place] [facility] Aug 30, 2023 02:00 PM AMBULATORY - NONE [facility] Lab Results: +/- 30 days of [...] Range Comment Feb 26, 2023 02:28 PM [facility] TSH W/REFLEX TO FREE T4 Specimen Type: PLASMA No comment entered. Ordering Provider: DIDIER HAQUE Report Released Date/Time: Feb 26, 2023 02:13 PM Reporting Lab: [facility] [address] Performing Lab: [facility] [address] TSH 0.49 0.35-4.94 Feb 26, 2023 02:28 PM [facility] HEMOGLOBIN A1C Specimen Type: BLOOD Comment: [...] Feb 26, 2023 02:13 PM Reporting Lab: [facility] [address] Performing Lab: [facility] [address] HEMOGLOBIN A1C 5.2 4.0-6.0 Feb 26, 2023 02:28 PM [facility] TESTOSTERONE Specimen Type: SERUM No comment entered. Ordering Provider: DIDEIR HAQUE Report Released Date/Time: Feb 26, 2023 02:13 PM Reporting Lab: [facility] [address] Performing Lab: [facility] [address] TESTOSTERONE [phone] Feb 26, 2023 02:28 PM [facility] LIPID PANEL,NON-FASTING Specimen Type: PLASMA No comment entered. Ordering Provider: DIDIER HAQUE Report Released Date/Time: Feb 26, 2023 02:13 PM Reporting Lab: [facility] [address] Performing Lab: [facility] [address] CHOLESTEROL 199 See_Comment .HDL 51 See_Comment LDL CALCULATION 123 H See_Comment VLDL CALCULATION 25 See_Comment NON HDL CHOLESTEROL 148 H See_Comment TRIG(NON FASTING) 124 See_Comment Feb 26, 2023 02:28 PM [facility] COMPREHENSIVE METABOLIC PANEL+MG Specimen Type: PLASMA No comment entered. Ordering Provider: DIDIER HAQUE Report Released Date/Time: Feb 26, 2023 02:13 PM Reporting Lab: [facility] [id number] Performing Lab: [facility] [address] CREATININE 1.4 H 0.7-1.2 UREA NITROGEN 20 8-26 GLUCOSE 80 70-100 SODIUM 140 136-145 POTASSIUM 4.4 3.5-5.1 CHLORIDE 105 98-107 CO2 27 22-29 CALCIUM 9.4 8.4-10.2 PROTEIN,TOTAL 7.5 6.0-8.3 ALBUMIN 4.4 3.5-5.2 BILIRUBIN, TOTAL 0.6 0.2-1.2 MAGNESIUM 2.1 1.6-2.6 ANION GAP 8 5-15 ALKALINE PHOSPHATASE 56 40-150 ALT/SGPT 30 See_Comment AST/SGOT 28 See_Comment .CREAT EGFR(CKD-EPI) 60 See_Comment Feb 26, 2023 02:28 PM [facility] CBC & DIFF Specimen Type: BLOOD Comment: Automated Differential Performed Ordering Provider: GARLAND,REBEC CA L Report Released Date/Time: Feb 26, 2023 02:13 PM Reporting Lab: [facility] [address] Performing Lab: [facility] [address] WBC 9.74 4.0-11.0 RBC 5.24 4.6-6.2 HGB [...] 98 % 3 194.9 lb 29 [place] [facility] Social History: Smoking Status (Most current) and Tobacco Use (All prior to encounter date) This section includes the most current, and the historical, smoking and tobacco- related health factors from the [place] facility where the Encounter took place. Current Smoking Status This section includes the most current smoking, or tobacco-related health factor, from the [place] facility where the Encounter took place. Date/Time Current Smoking Status Comment Shayne alston Nov 20, 2016 09:03 AM LIFETIME NON-TOBACCO USER [facility] Tobacco Use History This section includes a history of the smoking, or tobacco-related health factors, that were collected on or before the date of the Encounter. The data comes from the [place] facility where the Encounter took place. Date/Time Smoking Status/Tobacco Use Comment F acility Jun 29, 2016 07:34 AM INPT NO TOBACCO USE IN LAST 30 D AYS [facility] Dec 12, 2015 12:47 PM LIFETIME NON-TOBACCO USER [facility] Dec 28, 2014 12:34 PM LIFETIME NON-TOBACCO USER [facility] Jul 08, 2012 07:40 AM LIFETIME NON-TOBACCO USER [facility] Radiology Reports: +/- 30 days of [...] the Encounter. The data comes from all [place] treatment facilities. Date/Time Radiology Report Provider Source Mar 28, 2023 10:11 AM FOOT RIGHT 3 VIEWS OR MORE: DUSTIN TAYLOR [id number] -1970 M Exm Date: MAR 28, 2023@10:11 Req Phys: RUMA SOLIS Pat Loc: [facility] POD ANNUAL RAMP (Req'g Loc Img Loc: MAIN X-RAY Service: Unknown (Case [id number] COMPLETE) FOOT RIGHT 3 VIEWS OR MORE (RAD Detailed) CPT:16952 Proc Modifiers : RIGHT, WEIGHT BEARING Reason for Study: Pain Clinical History: [place] IS NOT under investigation for COVID-19 or is COVID-19 negative Toe pain after kicking snow off tires 7 months ago. Responsible provider name and phone number to notify for critical findings if other than user placing the order and pager listed below: User placing orders pager: [phone] LAST CREATININE____ Report Status: Verified Date Reported: MAR 28, 2023 Date Verified: MAR 28, 2023 Beam Worker E-Sig:/ES/MATT DIAZ MD Report: EXAMINATION: FOOT RIGHT [...] Primary Interpreting Staff: MATT DIAZ MD, RADIOLOGIST (Beam Worker) /MATT VERA [facility]
--- OUTSIDE RECORDS SUMMARY | 2023-10-11 15:50 | XMS_ITS | Encounter Summary ---
Author Name [facility] Organization [facility] Address [address] [place] [id number] Support Name Relationship Address Phone MELQUIADES TAYLOR Next of Kin [address] [place] [address] BRANDONGILMAMELQUIADES Vicky Emergency Contact [address] [place] [address] Insurance Providers: All historical and [...] PART A January 01, 2016 PART A [id number] [phone] DUSTIN TAYLOR JR PATIENT MEDICARE (WNR) MEDICARE (M) PART B January 01, 2016 PART B [id number] [phone] DUSTIN TAYLOR JR PATIENT Selected Encounter This section includes the information on record at [place] for the Encounter. Date/Time Encounter Type Encounter Description Reason Provider Source Apr 08, 2023 10:00 AM PRO PHONE CALL 21-30 MIN TELEPHONE PRIMARY CARE ICD-10-CM E29.1 Testicular hypofunction NISHA SILVER MA E Encounter Template Text not used by [place] Assessments - Encounter Diagnoses This section includes the primary and secondary diagnoses documented for the Encounter. Date/Time Primary/Secondary Diagnosis Diagnosis Name Provider Source Apr 08, 2023 10:00 AM PRIMARY Testicular hypofunction NISHA SILVER MA [facility] Plan of Treatment: Future Appointments (+ 6 months) and Future Tests (+/- 45 days) The Plan of Treatment section includes future care activities for the [facility] [place] [facility] This section includes future appointments and future orders which are active, pending or scheduled. Future Appointments This section includes appointments that were scheduled to occur 6 months from the date of the Encounter, up to a maximum of 20 appointments. The data comes from all [place] treatment facilities. Appointment Date/Time Appointment Type Appointme nt Facility Name Aug 12, 2023 10:30 AM AMBULATORY - NONE [facility] Aug 15, 2023 09:30 AM AMBULATORY - NONE [facility] Aug 20, 2023 01:00 PM [place] [facility] Aug 27, 2023 08:30 AM AMBULATORY - NONE [facility] Aug 30, 2023 10:01 AM [place] [facility] Aug 30, 2023 02:00 PM AMBULATORY - NONE [facility] Sep 23, 2023 11:00 AM AMBULATORY - REHAB MEDICIN E [facility] Sep 23, 2023 01:00 PM AMBULATORY - REHAB MEDICIN E [facility] Sep 24, 2023 11:00 AM AMBULATORY - REHAB MEDICIN E [facility] Sep 25, 2023 11:00 AM AMBULATORY - REHAB MEDICIN E [facility] Oct 01, 2023 07:00 AM [place]ONE [place] [facility] Oct 01, 2023 12:30 PM [place] - [place]ONE [place] [facility] Oct 01, 2023 01:00 PM [place] [facility] Oct 04, 2023 02:30 PM AMBULATORY - REHAB MEDICIN E [facility] Social History: Smoking Status (Most current) and Tobacco Use (All prior to encounter date) This section includes the most current, and the historical, smoking and tobacco- related health factors from the [place] facility where the Encounter took place. Current Smoking Status This section includes the most current smoking, or tobacco-related health factor, from the [place] facility where the Encounter took place. Date/Time Current Smoking Status Comment Shayne alston Nov 20, 2016 09:03 AM LIFETIME NON-TOBACCO USER [facility] Tobacco Use History This section includes a history of the smoking, or tobacco-related health factors, that were collected on or before the date of the Encounter. The data comes from the [place] facility where the Encounter took place. Date/Time Smoking Status/Tobacco Use Comment [facility] Jun 29, 2016 07:34 AM INPT NO TOBACCO USE IN LAST 30 D AYS [facility] Dec 12, 2015 12:47 PM LIFETIME NON-TOBACCO USER [facility] Dec 28, 2014 12:34 PM LIFETIME NON-TOBACCO USER [facility] Jul 08, 2012 07:40 AM LIFETIME NON-TOBACCO USER [facility] Radiology Reports: +/- 30 days of [...] the Encounter. The data comes from all [place] treatment facilities. Date/Time Radiology Report Provider Source Mar 28, 2023 10:11 AM FOOT RIGHT 3 VIEWS OR MORE: DUSTIN TAYLOR [id number] -1970 M Exm Date: MAR 28, 2023@10:11 Req Phys: RUMA SOLIS Pat Loc: [facility] POD ANNUAL RAMP (Req'g Loc Img Loc: MAIN X-RAY Service: Unknown (Case [id number] COMPLETE) FOOT RIGHT 3 VIEWS OR MORE (RAD Detailed) CPT:58000 Proc Modifiers : RIGHT, WEIGHT BEARING Reason for Study: Pain Clinical History: [place] IS NOT under investigation for COVID-19 or is COVID-19 negative Toe pain after kicking snow off tires 7 months ago. Responsible provider name and phone number to notify for critical findings if other than user placing the order and pager listed below: User placing orders pager: [phone] LAST CREATININE____ Report Status: Verified Date Reported: MAR 28, 2023 Date Verified: MAR 28, 2023 Section Supervisor E-Sig:/ES/MATT DIAZ MD Report: EXAMINATION: FOOT RIGHT [...] Primary Interpreting Staff: MATT DIAZ MD, RADIOLOGIST (Section Supervisor) /MATT VERA [facility] Encounter Notes: All associated encounter notes This section contains the clinical notes associated to the Encounter. Date/Time Encounter Note(s) Provider Source Apr 08, 2023 08:28 AM PHARMACY NOTE: LOCAL TITLE: PHARMACOTHERAPY-CLINICAL PHARMACY NOTE STANDARD TITLE: PHARMACY NOTE DATE OF NOTE: APR 08, 2023@08:28 ENTRY DATE: APR 08, 2023@08:28:09 AUTHOR: EM SILVER COSIGNER: URGENCY: STATUS: COMPLETED Appointment Type: [x] Phone Patient is a 52 YO MALE followed by [facility] for medication management. SUBJECTIVE: Follow-up after changing from testosterone injection to testosterone gel. States not a fan of testosterone gel. States actually harder to remember to take some daily vs the every 2 week injection. Would like to resume injection. Current hypogonadism symptoms : Thinks possibly a little more fatigue Appropriate testosterone injection technique/application of gel: Yes ROS: (-) testosterone deficiency symptoms (decreased libido/energy/mood, ED, body hair loss, hot flashes/sweats) (-) testosterone side effects (s/sx VTE, weight gain, fluid retention, increased BP) Adherence to medications: Denies missed doses Active problems - Computerized Problem List is the source for the followin. BACKACHE NOS 2. Osteoarthritis 3. Major depressive disorder (SNOMED CT 327555907) 4. Generalized anxiety disorder (SNOMED CT 91775695) 5. Sleep apnea (SNOMED CT 57199951) - doesn't wear CPAP because can't have something covering his face 6. Rupture of tendon of biceps 7. Chronic pain - discussed likely dx fibromyalgia; see 03/02/19 [facility] note for details 8. Insomnia 9. Pain of right temporomandibular joint 10. 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 H/O: surgery - s/p Vasectomy - s/p Bilteral Distal Biceps repair separately - s/p C6-7 Foraminotomy - s/p lower back fusion L4-S1 WITH HARDWARE - s/p wisdom teeth extraction 12. Body mass index 25-29 - overweight 13. Male hypogonadism 14. Erectile dysfunction 15. Prediabetes 16. Allergic Rhinitis ([facility] [id number]) OBJECTIVE: ALLERGIES/ADR: CYCLOBENZAPRINE (May 03, 2020) METHOCARBAMOL (May 03, 2020) MEDICATION RECONCILIATION: Active and Recently Outpatient Medications (excluding Supplies): Active Outpatient Medications Status *1) SILDENAFIL CITRATE 100MG TAB TAKE ONE-HALF TABLET BY ACTIVE MOUTH NEEDED FOR ERECTILE DYSFUNCTION 1 HOUR BEFORE ANTICIPATED SEXUAL ACTIVITY *2) TESTOSTERONE 1.62% 20.25MG/PUMP TOP GEL APPLY 2 PUMPS ACTIVE TOPICALLY ONCE A DAY FOR LOW TESTOSTERONE Non-VA ------ [facility] daily l-arginine 1000mg po daily l-glutamine 5g po daily milk thistle 175mg po daily collagen/biotin/vitamin c combo daily whey protein Vitals: Temperature: 98.4 F [36.9 C] (03/11/2023 10:40) Blood Pressure: 124/82 (03/11/2023 10:40) Pulse: 93 (03/11/2023 10:40) Respiration: 17 (03/11/2023 10:40) Pain: 3 (03/11/2023 10:40) Height: 68.5 in [174.0 cm] (02/26/2023 13:42) Weight: 194.9 lb [88.41 kg] (03/11/2023 10:40) BMI: 29.3 Measurement DT BP 03/11/2023 10:40 124/82 02/26/2023 13:42 110/75 08/24/2022 14:14 118/82 LABS: Basic Metabolic Panel SODIUM 140 (02/26/23) POTASSIUM 4.4 (02/26/23) CREATININE 1.4 H (02/26/23) UREA NITROGEN 20 (02/26/23) GLUCOSE 80 (02/26/23) CO2 27 (02/26/23) CHLORIDE 105 (02/26/23) EGFR (04/05) 03/11/20 @ 0924 71 CREATININE EGFR (CKD-EPI) 02/26/23 @ 1428 60 MAGNESIUM 2.1 (02/26/23) Collection DT Specimen Test Name Result Units Ref Range 02/26/2023 14:28 PLASMA CREATININE 1.4 H mg/dL 0.7 - 1.2 02/22/2022 14:01 PLASMA CREATININE 1.2 mg/dL 0.7 - 1.2 03/11/2020 09:24 PLASMA CREATININE 1.1 mg/dL 0.7 - 1.2 02/26/2023 14:28 PLASMA .CREAT EGFR(CKD-E 60 Ref: >=60 02/22/2022 14:01 PLASMA .CREAT EGFR(CKD-E 73 Ref: >=60 03/11/2020 09:24 PLASMA ESTIMATED GFR(eGF >60 Ref: >=60 03/11/2020 09:18 PLASMA ESTIMATED GFR(eGF >60 Ref: >=60 07/07/2019 11:24 PLASMA ESTIMATED GFR(eGF >60 Ref: >=60 Collection DT Spec HGBA1C 02/26/2023 14:28 BLOOD 5.2 02/22/2022 14:01 BLOOD 5.9 12/28/2014 11:54 BLOOD 5.1 CHOLESTEROL 199 (02/26/23) MEASURED LDL____ LDL CALCULATION 123 H (02/26/23) HDL 51 (02/26/23) TRIGLYCERIDE____ Collection DT Specimen Test Name Result Units Ref Range 02/26/2023 14:28 PLASMA BILIRUBIN, TOTAL 0.6 mg/dL 0.2 - 1.2 02/26/2023 14:28 PLASMA ALKALINE PHOSPHAT 56 U/L 40 - 150 02/26/2023 14:28 PLASMA AST/SGOT 28 U/L Ref: <=34 02/26/2023 14:28 PLASMA ALT/SGPT 30 U/L Ref: <=55 Collection DT Spec WBC HGB HCT PLT MCV NEUT LYMPHS 02/26/2023 14:28 BLOOD 9.74 16.1 47.8 222 91.2 51.4 35.8 TSH 0.49 (02/26/23) TESTOSTERONE 266 (02/26/23) LUTEINIZING HORMONE____ FSH____ PROLACTIN____ PSA____ ASSESSMENT: #Hypogonadism: Goal is improved hypogonadal symptoms while maintaining serum testosterone level mid-normal range for a eugonadal young male (approximately 500-700 ng/dL) Not tolerating change from injection to topical testosterone. Patient prefers to change back which is reasonable. Will alert PCP to change back to injection and recheck labs after 3-6 months. Pending lab results, will refer back to endo if needed. PLAN: -Discontinue testosterone gel -Restart testosterone IM injection 200mg K5pmson Disease-Specific Med Rec: Completed today - Educated vet on indication/risks/benefits of new/changed medication. - Education provided on therapeutic nonpharmacologic management to achieve goals. - Vet advised of recent labs. - verbalized understanding to all plans discussed today. Questions were answered to vet's satisfaction. Time spent: 21-30 minutes RTC: 3-6 months with labs /es/ EM SILVER, PHARMD, BCPS, BCACP [id number] Signed: 04/08/2023 10:57 EM SILVER [facility]
--- OUTSIDE RECORDS SUMMARY | 2023-10-11 15:50 | XMS_ITS | Encounter Summary ---
Author Name Department of Vetera Affairs Organization Department of Vetera ns Affairs Address [address] [place] [address] Support Name Relationship Address Phone BRANDONMELQUIADES Vicky Next of Kin [address] [place] [address] MELQUIADES TAYLOR Emergency Contact [address] [place] [address] Insurance Providers: All historical and [...] PART A January 01, 2016 PART A [id number] [phone] DUSTIN TAYLOR JR PATIENT MEDICARE (WNR) MEDICARE (M) PART B January 01, 2016 PART B [id number] [phone] DUSTIN TAYLOR JR PATIENT Selected Encounter This section includes the information on record at [place] for the Encounter. Date/Time Encounter Type Encounter Description Reason Provider Source Mar 28, 2023 10:30 AM OFF/OP CNSLTJ NEW/EST MOD 40 PODIATRY ICD-10-CM M20.21 Hallux rigidus, right foot Jonah SOLIS Encounter Template Text not used by [place] Assessments - Encounter Diagnoses This section includes the primary and secondary diagnoses documented for the Encounter. Date/Time Primary/Secondary Diagnosis Diagnosis Name Provider Source Mar 28, 2023 10:55 AM PRIMARY Hallux rigidus, right foot RUMA SOLIS [facility] Plan of Treatment: Future Appointments (+ 6 months) and Future Tests (+/- 45 days) The Plan of Treatment section includes future care activities for the patient from all [place] [facility]. This section includes future appointments and future orders which are active, pending or scheduled. Future Appointments This section includes appointments that were scheduled to occur 6 months from the date of the Encounter, up to a maximum of 20 appointments. The data comes from all [place] treatment facilities. Appointment Date/Time Appointment Type Appointme nt Facility Name Apr 08, 2023 10:00 AM [place]ONE [place] [facility] [facility] Aug 12, 2023 10:30 AM AMBULATORY - NONE [facility] Aug 15, 2023 09:30 AM [facility] [place] [facility] Aug 20, 2023 01:00 PM [facility] SUR[facility] Aug 27, 2023 08:30 AM AMBULATORY - NONE [facility] Aug 30, 2023 10:01 [facility] Aug 30, 2023 02:00 PM AMBULATORY - NONE [facility] Sep 23, 2023 11:00 AM AMBULATORY - REHAB MEDICIN [facility] Sep 23, 2023 01:00 PM AMBULATORY - REHAB MEDICIN E [facility] Sep 24, 2023 11:00 AM AMBULATORY - REHAB MEDICIN E [facility] Sep 25, 2023 11:00 AM AMBULATORY - RE[facility]AB MEDICIN [facility] Social History: Smoking Status (Most current) and Tobacco Use (All prior to encounter date) This section includes the most current, and the historical, smoking and tobacco- related health factors from the [place] facility where the Encounter took place. Current Smoking Status This section includes the most current smoking, or tobacco-related health factor, from the [place] facility where the Encounter took place. Date/Time Current Smoking Status Comment Shayne alston Nov 20, 2016 09:03 AM LIFETIME NON-TOBACCO USER [facility] Tobacco Use History This section includes a history of the smoking, or tobacco-related health factors, that were collected on or before the date of the Encounter. The data comes from the [place] facility where the Encounter took place. Date/Time Smoking Status/Tobacco Use Comment F acility Jun 29, 2016 07:34 AM INPT NO TOBACCO USE IN LAST 30 D AYS [facility] Dec 12, 2015 12:47 PM LIFETIME NON-TOBACCO USER [facility] Dec 28, 2014 12:34 PM LIFETIME NON-TOBACCO USER [facility] Jul 08, 2012 07:40 AM LIFETIME NON-TOBACCO USER [facility] Radiology Reports: +/- 30 days of the [...] the Encounter. The data comes from all [facility] facilities. Date/Time Radiology Report Provider Source Mar 28, 2023 10:11 AM FOOT RIGHT 3 VIEWS OR MORE: DUSTIN TAYLOR [id number] -1970 M Ex Date: MAR 28, 2023@10:11 Req Phys: RUMA SOLIS Pat Loc: [facility] POD ANNUAL RAMP (Req'g Loc Img Loc: MAIN X-RAY Service: Unknown (Case [id number] COMPLETE) FOOT RIGHT 3 VIEWS OR MORE (RAD Detailed) CPT:32533 Proc Modifiers : RIGHT, WEIGHT BEARING Reason for Study: Pain Clinical History: IS NOT under investigation for COVID-19 or is COVID-19 negative Toe pain after kicking snow off tires 7 months ago. Responsible provider name and phone number to notify for critical findings if other than user placing the order and pager listed below: User placing orders pager: [phone] LAST CREATININE____ Report Status: Verified Date Reported: MAR 28, 2023 Date Verified: MAR 28, 2023 General Manager Land Department E-Sig:/ES/MATT DIAZ MD Report: EXAMINATION: FOOT RIGHT [...] Primary Interpreting Staff: MATT DIAZ MD, RADIOLOGIST (General Manager Land Department) /MATT VERA [facility] Encounter Notes: All associated encounter notes This section contains the clinical notes associated to the Encounter. Date/Time Encounter Note(s) Provider Source Mar 28, 2023 10:51 AM PODIATRY CONSULT: LOCAL TITLE: PODIATRY CONSULT STANDARD TITLE: PODIATRY CONSULT DATE OF NOTE: MAR 28, 2023@10:51 ENTRY DATE: MAR 28, 2023@10:51:30 AUTHOR: PRISCILLA SOLIS COSIGNER: URGENCY: STATUS: COMPLETED ASSESSMENT: Right hallux rigidus PLAN: 1. Chart reviewed. Initial visit with patient. Reviewed x-rays which showed moderate osteoarthritis, narrowing of the first MPJ, flattening of the first metatarsal head with dorsal bone spurs. Similarly on clinical exam the patient has findings consistent with hallux rigidus. 2. Discussed conservative options such as custom molded orthotics, intra- articular cortisone injection down in IR, topical diclofenac gel. Do not recommend physical therapy or chiropractic manipulation for this problem. 3. Discussed possible surgical intervention namely a first MPJ arthrodesis which I feel he will eventually need to have done. He has had numerous surgeries in the past on other body parts. I discussed the nature of the great toe joint fusion, anesthesia, popliteal nerve block, nonweightbearing 4 weeks, benefits and risk, alternatives, potential complications and outcomes. Patient will think about it, possibly contact us in winter. Patient did not want to do any other conservative options at this time. I completed 40 minutes of time of patient care today which included: reviewing past medical history, labs and imaging, performing physical exam, couseling and performing education, ordering necessary medications and tests, and placing necessary referrals and documenting clinical information in the EHR CHIEF COMPLAINT: Right great toe joint pain HISTORY OF PRESENT ILLNESS: DUSTIN TAYLOR ALEXANDER WASHINGTON is a 52 year old MALE presents to the [facility]. Patient presents to the clinic with pain in his right great toe joint after kicking snow off of his shoe last winter. Prior to this episode, he did not have any previous pain, no previous surgery. He has throbbing aching pain and stiffness in the right great toe joint and it hurts with pressure. No recent intervention. Past Medical History: BACKACHE NOS (ICD-9-CM 724.5) Osteoarthritis (SCT 372723522) Major depressive disorder (SCT [id number] anxiety disorder (ICD-9-CM 300.02) Sleep apnea ([facility] 23826670) Rupture of tendon of biceps ([facility] 442038744) Chronic pain ([facility] 98211211) Insomnia ([facility] 697811659) Pain of right temporomandibular joint (SFamily social history ([facility] 201298006) H/O: surgery ([facility] 900269985) Body mass index 25-29 - overweight ([facility] 238215999) Male hypogonadism ([facility] 51643417) Erectile dysfunction ([facility] 864740798) Prediabetes ([facility] 560989604) Allergic Rhinitis ([facility] 59475814) Allergies: CYCLOBENZAPRINE (May 03, 2020) METHOCARBAMOL (May 03, 2020) Current Medications: Active Outpatient Medications (including Supplies): SILDENAFIL CITRATE 100MG TAB TAKE ONE-HALF TABLET BY MOUTH ACTIVE NEEDED FOR ERECTILE DYSFUNCTION 1 HOUR BEFORE ANTICIPATED SEXUAL ACTIVITY TESTOSTERONE 1.62% 20.25MG/PUMP TOP GEL APPLY 2 PUMPS ACTIVE TOPICALLY ONCE A DAY FOR LOW TESTOSTERONE Patient states he is taking all the above medications except Herbals/Over the Counter Medications: OBJECTIVE: VITALS: BP: 124/82 (03/11/2023 10:40) P: 93 (03/11/2023 10:40) R: 17 (03/11/2023 10:40) T: 98.4 F [36.9 C] (03/11/2023 10:40) WT: 194.9 lb [88.41 kg] (03/11/2023 10:40) BMI: 29.3 Pain: 3 (03/11/2023 10:40) O2 Sat: 98% (03/11/2023 10:40) CREATININE 1.4 H (02/26/23) INR____ HGB A1C: LAB TESTS SELECTED Collection DT Specimen Test Name Result Units Ref Range 02/26/2023 14:28 BLOOD !! HEMOGLOBIN A1C 5.2 % 4.0 - 6.0 !! Indicates COMMENTS AVAILABLE...Refer to Interim Lab Report. LFTs: SGOT 28 (02/26/23) SGPT 30 (02/26/23) ALLERGIES: CYCLOBENZAPRINE (May 03, 2020) METHOCARBAMOL (May 03, 2020) ROS:Unremarkable except for HPI EXAMINATION: Neurovascular status is intact with no signs of acute ischemia, cyanosis or gangrene. There are palpable pulses, presence of pedal hair, no significant edema or bruising, normal temperature and color. Gross epicritic sensation is intact with no signs of neuropathy, allodynia, tarsal tunnel, or mortons neuroma. Reflexes intact. No dropfoot, spasticity or tremors. Dermatological exam reveals no open wounds, rashes, corns, callouses, ulcers, cellulitis, or infections. Musculoskeletal exam reveals normal muscle strength, tone, reflexes. Patient has stiffness, crepitance, limited range of motion, limited dorsiflexion of the right first metatarsophalangeal joint consistent with hallux rigidus. There is no sesamoid pain. No hallux IPJ pain /es/ RUMA SOLIS DPM DRYING MACHINE TENDER Signed: 03/28/2023 10:55 MARANDA SOLIS [facility]
--- OUTSIDE RECORDS SUMMARY | 2023-10-11 15:51 | XMS_ITS | Encounter Summary ---
Author Name Department of Vetera Affairs Organization Department of Vetera Affairs Address [address] [place] [address] Support Name Relationship Address Phone MELQUIADES TAYLOR Next of Kin [address] [place] [address] MELQUIADES TAYLOR Emergency Contact [address] [place] [address] Insurance Providers: All historical and [...] PART A January 01, 2016 PART A [id number] [phone] DUSTIN TAYLOR JR PATIENT MEDICARE (WNR) MEDICARE (M) PART B January 01, 2016 PART B [id number] DUSTIN TAYLOR JR PATIENT Selected Encounter This section includes the information on record at [place] for the Encounter. Date/Time Encounter Type Encounter Description Reason Pro vider Source Apr 05, 2023 12:00 PM Outpatient Encounter TELEPHONE PRIMARY CARE I[facility] Encounter Template Text not used by [place] Plan of Treatment: Future Appointments (+ 6 months) and Future Tests (+/- 45 days) The Plan of Treatment section includes future care activities for the patient from all [place] treatmentfacilities. This section includes future appointments and future orders which are active, pending or scheduled. Future Appointments This section includes appointments that were scheduled to occur 6 months from the date of the Encounter, up to a maximum of 20 appointments. The data comes from all [place] treatment facilities. Appointment Date/Time Appointment Type Appointme nt Facility Name Apr 08, 2023 10:00 AM [facility]ORY [place]ONE [place] [facility] [facility] Aug 12, 2023 10:30 AM [facility]ONE [facility] Aug 15, 2023 09:30 AM AM[facility]ORY - NONE [facility] Aug 20, 2023 01:00 PM [place] [facility] Aug 27, 2023 08:30 AM AM[facility]ORY - NONE [facility] Aug 30, 2023 10:01 AM [facility] [place] [facility]ONE [place] [facility] [facility] Aug 30, 2023 02:00 PM [facility]ORY - [facility]ONE [facility] Sep 23, 2023 11:00 AM AMBULATORY - REHAB MEDICIN E [facility] Sep 23, 2023 01:00 PM AMBULATORY - REHAB MEDICIN [facility] Sep 24, 2023 11:00 AM AMBULATORY - REHAB MEDICIN E [facility] Sep 25, 2023 11:00 AM AMBULATORY - REHAB MEDICIN [facility] Oct 01, 2023 07:00 AM [place] [place]ONE [place] [facility] Oct 01, 2023 12:30 PM [place] [facility] Oct 01, 2023 01:00 PM AMBUL[facility]ORY - SUR[facility] Oct 04, 2023 02:30 PM AMBULATORY - REHAB MEDICIN E [facility] Social History: Smoking Status (Most current) and Tobacco Use (All prior to encounter date) This section includes the most current, and the historical, smoking and tobacco- related health factors from the [place] facility where the Encounter took place. Current Smoking Status This section includes the most current smoking, or tobacco-related health factor, from the [place] facility where the Encounter took place. Date/Time Current Smoking Status Comment Shayne alston Nov 20, 2016 09:03 AM LIFETIME NON-TOBACCO USER [facility] Tobacco Use History This section includes a history of the smoking, or tobacco-related health factors, that were collected on or before the date of the Encounter. The data comes from the [place] facility where the Encounter took place. Date/Time Smoking Status/Tobacco Use Comment F acility Jun 29, 2016 07:34 AM INPT NO TOBACCO USE IN LAST 30 D AYS [facility] Dec 12, 2015 12:47 PM LIFETIME NON-TOBACCO USER [facility] Dec 28, 2014 12:34 PM LIFETIME NON-TOBACCO USER [facility] Jul 08, 2012 07:40 AM LIFETIME NON-TOBACCO USER [facility] Radiology Reports: +/- 30 days of [...] the Encounter. The data comes from all [place] treatment facilities. Date/Time Radiology Report Provider Source Mar 28, 2023 10:11 AM FOOT RIGHT 3 VIEWS OR MORE: DUSTIN TAYLOR [id number] -1970 M Exm Date: MAR 28, 2023@10:11 Req Phys: RUMA SOLIS Pat Loc: [facility] POD ANNUAL RAMP (Req'g Loc Img Loc: MAIN X-RAY Service: Unknown (Case [id number] COMPLETE) FOOT RIGHT 3 VIEWS OR MORE (RAD Detailed) CPT:02629 Proc Modifiers : RIGHT, WEIGHT BEARING Reason for Study: Pain Clinical History: [facility] IS NOT under investigation for COVID-19 or is COVID-19 negative Toe pain after kicking snow off tires 7 months ago. Responsible provider name and phone number to notify for critical findings if other than user placing the order and pager listed below: User placing orders pager: [phone] LAST CREATININE____ Report Status: Verified Date Reported: MAR 28, 2023 Date Verified: MAR 28, 2023 Edger Automatic E-Sig:/ES/MATT DIAZ MD Report: EXAMINATION: FOOT RIGHT [...] Primary Interpreting Staff: MATT DIAZ MD, RADIOLOGIST (Edger [employer]) /MATT VERA [facility] Encounter Notes: All associated encounter notes This section contains the clinical notes associated to the Encounter. Date/Time Encounter Note(s) Provider Source Apr 05, 2023 12:00 PM NONVA CONSULT: LOCAL TITLE: COMMUNITY CARE CONSULT RESULT CHIROPRACTIC STANDARD TITLE: NONVA CONSULT DATE OF NOTE: APR 05, 2023@12:00 ENTRY DATE: JUL 01, 2023@09:20:24 AUTHOR: RICHARD HENLEY EXP COSIGNER: URGENCY: STATUS: COMPLETED VistA Imaging - Scanned Document DOS 04/05, 04/26, 05/10, 05/31, 06/28 SCANNED DOCUMENT SIGNATURE NOT REQUIRED Electronically Filed: 07/01/2023 by: FALGUNI RAI LPN, JANE M [place] [facility]
--- OUTSIDE RECORDS SUMMARY | 2023-10-11 15:51 | XMS_ITS | Encounter Summary ---
Author Name Department of Vetera Affairs Organization Department of Vetera ns Affairs Address [address] [place] [address] Support Name Relationship Address Phone BRANDON, MELQUIADES L Next of Kin [address] [place] [address] MELQUIADES TAYLOR Emergency Contact [address] [place] [address] Insurance Providers: All historical and [...] PART A January 01, 2016 PART A [id number] [phone] DUSTIN TAYLOR JR PATIENT MEDICARE (WNR) MEDICARE (M) PART B January 01, 2016 PART B [id number] DUSTIN TAYLOR JR PATIENT Selected Encounter This section includes the information on record at [place] for the Encounter. Date/Time Encounter Type Encounter Description Reason Pro vider Source May 15, 2023 11:48 AM Outpatient Encounter [facility] Encounter Template Text not used by [place] Plan of Treatment: Future Appointments (+ 6 months) and Future Tests (+/- 45 days) The Plan of Treatment section includes future care activities for the patient from all [place] treatmentfacilities. This section includes future appointments and future orders which are active, pending or scheduled. Future Appointments This section includes appointments that were scheduled to occur 6 months from the date of the Encounter, up to a maximum of 20 appointments. The data comes from all [place] treatment facilities. Appointment Date/Time Appointment Type Appointme nt Facility Name Aug 12, 2023 10:30 AM AMBULATORY - NONE [facility] Aug 15, 2023 09:30 AM AMBULATORY - NONE [facility] Aug 20, 2023 01:00 PM [place] [facility] Aug 27, 2023 08:30 AM AM[facility]ULATORY - NONE [facility] Aug 30, 2023 10:01 AM [place] [place]ONE [place] [facility] [facility] Aug 30, 2023 02:00 PM AM[facility]ATORY - NONE [facility] Sep 23, 2023 11:00 AM AMBULATORY - REHAB MEDICIN E [facility] Sep 23, 2023 01:00 PM AMBULATORY - REHAB MEDICIN [facility] Sep 24, 2023 11:00 AM AMBULATORY - REHAB MEDICIN E [facility] Sep 25, 2023 11:00 AM AMBULATORY - REHAB MEDICIN [facility] Oct 01, 2023 07:00 AM [place] [facility] Oct 01, 2023 12:30 PM [place] [place] [facility] Oct 01, 2023 01:00 PM [place] [facility] Oct 04, 2023 02:30 PM AMBULATORY - REHAB MEDICIN E [facility] Oct 14, 2023 11:30 AM AMBULATORY - REHAB MEDICIN [facility] Oct 25, 2023 11:30 AM AMBULATORY - REHAB MEDICIN E [facility] Oct 31, 2023 01:00 PM AMBULATORY - NONE [facility] Nov 01, 2023 02:00 PM AM[facility]ULATORY - NONE [facility] Social History: Smoking Status (Most current) and Tobacco Use (All prior to encounter date) This section includes the most current, and the historical, smoking and tobacco- related health factors from the [facility] where the Encounter took place. Current Smoking Status This section includes the most current smoking, or tobacco-related health factor, from the [place] facility where the Encounter took place. Date/Time Current Smoking Status Comment Shayne alston Nov 20, 2016 09:03 AM LIFETIME NON-TOBACCO USER [facility] Tobacco Use History This section includes a history of the smoking, or tobacco-related health factors, that were collected on or before the date of the Encounter. The data comes from the [place] facility where the Encounter took place. Date/Time Smoking Status/Tobacco Use Comment F acility Jun 29, 2016 07:34 AM INPT NO TOBACCO USE IN LAST 30 D AYS [facility] Dec 12, 2015 12:47 PM LIFETIME NON-TOBACCO USER [facility] Dec 28, 2014 12:34 PM LIFETIME NON-TOBACCO USER [facility] Jul 08, 2012 07:40 AM LIFETIME NON-TOBACCO USER [facility] Encounter Notes: All associated encounter notes This section contains the clinical notes associated to the Encounter. Date/Time Encounter Note(s) Provider Source May 15, 2023 11:48 AM ADMINISTRATIVE NOT E: LOCAL TITLE: COVID-19 SCHEDULING NOTE STANDARD TITLE: ADMINISTRATIVE NOTE DATE OF NOTE: MAY 15, 2023@11:48 ENTRY DATE: MAY 15, 2023@11:48:52 AUTHOR: JAC MADSEN EXP COSIGNER: URGENCY: STATUS: COMPLETED Review of cancelled appointments during COVID-19 pandemic: CVP - Past Clinic Visits 04/08/2023 10:00 V23 [facility] PACT PHARM 10 P 03/28/2023 10:30 [facility] POD RAMPETSREITER CON 03/28/2023 10:00 [facility] XRAY GENERAL AM 03/11/2023 11:00 [facility] MSK PRP FAZ[place] 02/27/2023 14:10 [facility] PHARM CHART CONSULT UNSCHEDULED 02/26/2023 13:30 [facility]K PACT ACES WH 02/25/2023 13:00 [facility] VVC MSK REHAB FAZENDI 02/18/2023 13:30 COM CARE-CHIROPRACTIC 01/21/2023 10:19 [id number] MSP PHONE CCC RN- UNSCHEDULED Date(s) of appointment(s) being reviewed: 07/31/2021 11:30 Clinic Location/Specialty: [facility] chart has been reviewed and the action below is indicated for this cancelled appointment: None, minimum scheduling attempts met /es/ JAC MADSEN Signed: 05/15/2023 11:49 JAC MADSEN OC
--- OUTSIDE RECORDS SUMMARY | 2023-10-11 15:51 | XMS_ITS | Encounter Summary ---
Author Name Department of Vetera Affairs Organization Department of Vetera Affairs Address [address] [place] [address] Support Name Relationship Address Phone MELQUIADES TAYLOR Next of Kin [address] [place] [address] BRANDON MELQUIADES Vicky Emergency Contact [address] [place] [address] Insurance Providers: All historical and [...] PART A January 01, 2016 PART A [id number] [phone] DUSTIN TAYLOR JR PATIENT MEDICARE (WNR) MEDICARE (M) PART B January 01, 2016 PART B [id number] DUSTIN TAYLOR JR PATIENT Selected Encounter This section includes the information on record at [place] for the Encounter. Date/Time Encounter Type Encounter Description Reason Provider Source Jul 24, 2023 11:00 AM Outpatient Encounter TELEPHONE TRIAGE ELIZABETH TAVERA Encounter Template Text not used by [place] [...] 12, 2023 10:30 AM AMBULATORY - NONE [facility] Aug 15, 2023 09:30 AM AMBULATORY - NONE [facility] Aug 20, 2023 01:00 PM AMBUL[place]ORY - [place] [facility] Aug 27, 2023 08:30 AM AMBULATORY - NONE [facility] Aug 30, 2023 10:01 AM [place]ONE [place] [facility] Aug 30, 2023 02:00 PM AMBULATORY - NONE [facility] Sep 23, 2023 11:00 AM AMBULATORY - REHAB MEDICIN E [facility] Sep 23, 2023 01:00 PM AMBULATORY - REHAB MEDICIN E [facility] Sep 24, 2023 11:00 AM AMBULATORY - REHAB MEDICIN E [facility] Sep 25, 2023 11:00 AM AMBULATORY - REHAB MEDICIN E [facility] Oct 01, 2023 07:00 AM [facility] Oct 01, 2023 12:30 PM [facility] Oct 01, 2023 01:00 PM AMBULATORY - SURGERY [facility] Oct 04, 2023 02:30 PM AMBULATORY - REHAB MEDICIN E [facility] Oct 14, 2023 11:30 AM AMBULATORY - REHAB MEDICIN E [facility] Oct 25, 2023 11:30 AM AMBULATORY - REHAB MEDICIN E [facility] Oct 31, 2023 01:00 PM AMBULATORY - NONE [facility] Nov 01, 2023 02:00 PM AMBULATORY - NONE [facility] 2023 09:00 AM AMBULATORY - REHAB MEDICIN E [facility] Active, Pending, and Scheduled Orders This section includes a listing of several types of active, pending, and scheduled orders, including clinic medications orders, diagnostic test orders, procedure orders and consult orders; where the start date of the order is 45 days before the date of the Encounter or 45 days after the date of theEncounter. The data comes from all [place] treatment facilities. Test Date/Time Test Type Test Details Facility Name Aug 13, 2023 09:18 AM Consult Order COMMUNITY CARE-CHIROPRACTIC Cons [employer] Preparer's Choice [facility] Aug 30, 2023 02:56 PM Consult Order SLEEP APNE A CLINIC OUTPT Cons [employer] Preparer's Choice [facility] Social History: Smoking Status (Most current) and Tobacco Use (All prior to encounter date) This section includes the most current, and the historical, smoking and tobacco- related health factors from the [facility] where the Encounter took place. Current Smoking Status This section includes the most current smoking, or tobacco-related health factor, from the [facility] where the Encounter took place. Date/Time Current Smoking Status Comment Shayne ity Nov 20, 2016 09:03 AM LIFETIME NON-TOBACCO USER [facility] Tobacco Use History This section includes a history of the smoking, or tobacco-related health factors, that were collected on or before the date of the Encounter. The data comes from the [facility] where the Encounter took place. Date/Time Smoking Status/Tobacco Use Comment F acility Jun 29, 2016 07:34 AM INPT NO TOBACCO USE IN LAST 30 D AYS [facility] Dec 12, 2015 12:47 PM LIFETIME NON-TOBACCO USER [facility] Dec 28, 2014 12:34 PM LIFETIME NON-TOBACCO USER [facility] Jul 08, 2012 07:40 AM LIFETIME NON-TOBACCO USER [facility] Encounter Notes: All associated encounter notes This section contains the clinical notes associated to the Encounter. Date/Time Encounter Note(s) Provider Source Jul 24, 2023 11:38 AM ADDENDUM: LOCAL TITLE: Addendum STANDARD TITLE: ADDENDUM DATE OF NOTE: JUL 24, 2023@11:38:08 ENTRY DATE: JUL 24, 2023@11:38:10 AUTHOR: SHAKIRA JASMINE COSIGNER: URGENCY: STATUS: COMPLETED Alerting PACT RN /mnidy/ SHAKIRA THEODORE RN, CWOCN PACT RN Signed: 07/24/2023 11:38 Receipt Acknowledged By: 08/01/2023 15:31 /mindy/ WILL HOWELL RN REGISTERED NURSE ====== --- Original Document --- 07/24/23 CCC: CLINICAL TRIAGE: Patient Demographics Patient Name: DUSTIN TAYLOR Patient Primary Address[address] [address] [place], [place] [id number] Patient Primary Phone: [phone] Patient : 1970 Patient Age: 52 Caller/Recipient Relation to Patient: Self Emergency Contact: MELQUIADES TAYLOR Nursing Plan and Disposition Other course(s) of action Generated msg to PACT/Provider Nurse Summary Nurse Summary: PATIENT CONCERN/DURATION/ONSET: calls requesting a referral to Ortho for appt for his left shoulder. He reports that he has had imaging and has seen Ortho in the past. He is wanting to see about getting an injection to his left shoulder. WHAT HAS PATIENT TRIED TO TREAT THE SYMPTOMS: n/a HISTORY/PREVIOUS TREATMENT: left shoulder pain WHAT IS PATIENT GOAL FOR THE CALL: referral to Ortho Was Care Now considered (TELE or VVC)? 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 Triage not completed at time of call as denies new or worsening signs or symptoms. Best contact for is (verified) [phone] This note was created by a [address] ip litigation associate. Please do not alert this nurse by adding as a signer for future communications. Alerts are not monitored by this user, please reach out to [facility] instead if indicated. Clinical Contact Center Codes Clinic/Location: [address] PHONE [facility] RN /midny/ ELIZABETH TAVERA dressing room attendant Nurse VISN 23 [place] [employer] Signed: 07/24/2023 11:00 07/24/2023 ADDENDUM STATUS: COMPLETED Addendum: See consult dated 02/25/2023 [facility] OUTPT PRP Cons Reason for request: Platelet Rich Plasma (PRP) He is asking for this to be done in his left shoulder /mindy/ ELIZABETH TAVERA RN Triage Nurse VISN 23 [facility] [employer] Signed: 07/24/2023 11:09 08/01/2023 ADDENDUM STATUS: COMPLETED DIscussed request with MD, Ortho consult placed as requested and held for MD review/signature. /es/ WILL HOWELLRN REGISTERED NURSE Signed: 08/01/2023 15:36 LYN SHAKIRA THEODORE [facility] Jul 24, 2023 11:00 AM RN PROGRESS NOTE: LOCAL TITLE: CCC: CLINICAL TRIAGE STANDARD TITLE: RN PROGRESS NOTE DATE OF NOTE: JUL 24, 2023@11:00:43 ENTRY DATE: JUL 24, 2023@11:00:43 AUTHOR: ELIZABETH TAVERA COSIGNER: URGENCY: STATUS: COMPLETED CCC: CLINICAL TRIAGE Has ADDENDA Patient Demographics Patient Name: DUSTIN TAYLOR Patient Primary Address: [address] [place] [address] Patient Primary Phone: [phone] Patient : 1970 Patient Age: 52 Caller/Recipient Relation to Patient: Self Emergency Contact: MELQUIADES TAYLOR Nursing Plan and Disposition Other course(s) of action Generated msg to PACT/Provider Nurse Summary Nurse Summary: PATIENT CONCERN/DURATION/ONSET: calls requesting a referral to Ortho for appt for his left shoulder. He reports that he has had imaging and has seen Ortho in the past. He is wanting to see about getting an injection to his left shoulder. WHAT HAS PATIENT TRIED TO TREAT THE SYMPTOMS: n/a HISTORY/PREVIOUS TREATMENT: left shoulder pain WHAT IS PATIENT GOAL FOR THE CALL: referral to Ortho Was Care Now considered (TELE or VVC)? 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 Triage not completed at time of call as denies new or worsening signs or symptoms. Best contact for is (verified) [phone] This note was created by a [address] ip litigation associate. Please do not alert this nurse by adding as a signer for future communications. Alerts are not monitored by this user, please reach out to [facility] instead if indicated. Clinical Contact Center Codes Clinic/Location: V23 [facility] PHONE [facility] RN /mindy/ ELIZABETH TAVERA dressing room attendant Nurse VISN 23 [facility] Signed: 07/24/2023 11:00 07/24/2023 ADDENDUM STATUS: COMPLETED Addendum: See consult dated 02/25/2023 [facility] REHAB OUTPT PRP Cons Reason for request: Platelet Rich Plasma (PRP) He is asking for this to be done in his left shoulder /mindy/ ELIZABETH TAVERA dressing room attendant Nurse VISN 23 [facility] Signed: 07/24/2023 11:09 07/24/2023 ADDENDUM STATUS: COMPLETED Alerting PACT RN /mindy/ SHAKIRA THEODORE RN, CWOCN PACT RN Signed: 07/24/2023 11:38 Receipt Acknowledged By: 08/01/2023 15:31 /mindy/ WILL HOWELLRN REGISTERED NURSE 08/01/2023 ADDENDUM STATUS: COMPLETED DIscussed request with MD, Ortho consult placed as requested and held for MD review/signature. /mindy/ WILL HOWELL,RN REGISTERED NURSE Signed: 08/01/2023 15:36 ELIZABETH TAVERA [facility]
--- OUTSIDE RECORDS SUMMARY | 2023-10-11 15:51 | XMS_ITS | Encounter Summary ---
Author Name Department of Vetera Affairs Organization Department of Vetera Affairs Address [address] [place] [address] Support Name Relationship Address Phone MELQUIADES TALYOR Next of Kin [address] [place] [address] BRANDON MELQUIADES Vicky Emergency Contact [address] [place] [address] Insurance Providers: All historical and [...] PART B January 01, 2016 PART B [id number] [phone] DUSTIN TAYLOR JR PATIENT MEDICARE (WNR) MEDICARE (M) PART A January 01, 2016 PART A [id number] DUSTIN TAYLOR JR PATIENT Selected Encounter This section includes the information on record at [place] for the Encounter. Date/Time Encounter Type Encounter Description Reason Provider Source Aug 05, 2023 11:02 AM Outpatient Encounter TELEPHONE TRIAGE WENDI MOREL Encounter Template Text not used by PA [...] 12, 2023 10:30 AM AMBULATORY - NONE [facility] Aug 15, 2023 09:30 AM AMBULATORY - NONE [facility] Aug 20, 2023 01:00 PM AMBULATORY - [place] [facility] Aug 27, 2023 08:30 AM AMBULATORY - NONE [facility] Aug 30, 2023 10:01 AM [place]ORY [place]ONE [place] [facility] Aug 30, 2023 02:00 PM AMBULATORY - NONE [facility] Sep 23, 2023 11:00 AM AMBULATORY - REHAB MEDICIN E [facility] Sep 23, 2023 01:00 PM AMBULATORY - REHAB MEDICIN E [facility] Sep 24, 2023 11:00 AM AMBULATORY - REHAB MEDICIN E [facility] Sep 25, 2023 11:00 AM AMBULATORY - REHAB MEDICIN E [facility] Oct 01, 2023 07:00 AM [facility] Oct 01, 2023 12:30 PM [facility] Oct 01, 2023 01:00 PM AMBULATORY - SURGERY [facility] Oct 04, 2023 02:30 PM AMBULATORY - REHAB MEDICIN E [facility] Oct 14, 2023 11:30 AM AMBULATORY - REHAB MEDICIN E [facility] Oct 25, 2023 11:30 AM AMBULATORY - REHAB MEDICIN E [facility] Oct 31, 2023 01:00 PM AMBULATORY - NONE [facility] Nov 01, 2023 02:00 PM AMBULATORY - NONE [facility] 2023 09:00 AM AMBULATORY - REHAB MEDICIN E [facility] Active, Pending, and Scheduled Orders This section includes a listing of several types of active, pending, and scheduled orders, including clinic medications orders, diagnostic test orders, procedure orders and consult orders; where the start date of the order is 45 days before the date of the Encounter or 45 days after the date of theEncounter. The data comes from all [place] treatment [facility]. Test Date/Time Test Type Test Details Facility Name Aug 13, 2023 09:18 AM Consult Order COMMUNITY CARE-CHIROPRACTIC Cons Traveling Representative's Choice [facility] Aug 30, 2023 02:56 PM Consult Order SLEEP APNE A CLINIC OUTPT Cons Traveling Representative's Choice [facility] Lab Results: +/- 30 days of the encounter This section includes the Chemistry and Hematology Lab Results on record with [place] for the patient. Radiology Reports and Pathology Reports are provided separately, in subsequent sections. Lab Results This section contains the Chemistry/Hematology Results that were resulted 30 days before or 30 daysafter the date of the Encounter. Date/Time Source Result Type Result - Unit Interpretation Reference Range Comment Aug 27, 2023 08:20 AM [facility] LIPID PANEL,NON-FASTING Specimen Type: PLASMA No comment entered. Ordering Provider: CHRISTINA HAQUE CCA Report Released Date/Time: Feb 27, 2023 08:53 AM Reporting Lab: [facility] [id number] Performing Lab: [facility] [id number] CHOLESTEROL 177 <199 .HDL 49 >40 LDL CALCULATION 113 H <99 VLDL CALCULATION 15 <29 NON HDL CHOLESTEROL 128 <129 TRIG(NON FASTING) 77 <149 Aug 27, 2023 08:20 AM [facility] TESTOSTERONE Specimen Type: SERUM No comment entered. Ordering Provider: NISHA SILVER MA Report Released Date/Time: Apr 08, 2023 10:57 AM Reporting Lab: [facility] [id number] Performing Lab: [facility] [id number] TESTOSTERONE 1382 H [id number] Aug 27, 2023 08:20 AM [facility] CBC Specimen Type: BLOOD No comment entered. Ordering Provider: NISHA SILVER MA Report Released Date/Time: Apr 08, 2023 10:57 AM Reporting Lab: [facility] [id number] Performing Lab: [facility] [id number] WBC 9.37 4.0-11.0 RBC 5.79 4.6-6.2 HGB 17.0 13.5-17.9 HCT 52.0 41-54 MCV 89.8 80-100 MCH 29.4 27-33 MCHC 32.7 32.0-37.5 PLT 202 150-400 MPV 10.4 7.4-10.4 RDW 14.5 11.5-14.5 Social History: Smoking Status (Most current) and Tobacco Use (All prior to encounter date) This section includes the most current, and the historical, smoking and tobacco- related health factors from the [facility] where the Encounter took place. Current Smoking Status This section includes the most current smoking, or tobacco-related health factor, from the [facility] where the Encounter took place. Date/Time Current Smoking Status Comment Shayne alston Nov 20, 2016 09:03 AM LIFETIME NON-TOBACCO USER [facility] Tobacco Use History This section includes a history of the smoking, or tobacco-related health factors, that were collected on or before the date of the Encounter. The data comes from the [facility] where the Encounter took place. Date/Time Smoking Status/Tobacco Use Comment F [facility]ility Jun 29, 2016 07:34 AM INPT NO TOBACCO USE IN LAST 30 D AYS [facility] Dec 12, 2015 12:47 PM LIFETIME NON-TOBACCO USER [facility] Dec 28, 2014 12:34 PM LIFETIME NON-TOBACCO USER [facility] Jul 08, 2012 07:40 AM LIFETIME NON-TOBACCO USER [facility] Encounter Notes: All associated encounter notes This section contains the clinical notes associated to the Encounter. Date/Time Encounter Note(s) Provider Source Aug 05, 2023 11:02 AM RN PROGRESS NOTE: LOCAL TITLE: CCC: CLINICAL TRIAGE STANDARD TITLE: RN PROGRESS NOTE DATE OF NOTE: AUG 05, 2023@11:02:45 ENTRY DATE: AUG 05, 2023@11:02:45 AUTHOR: WENDI MOREL COSIGNER: URGENCY: STATUS: COMPLETED Patient Demographics Patient Name: DUSTIN TAYLOR Patient Primary Address: [address] [place] [address] Patient Primary Phone: [phone] Patient : 1970 Patient Age: 52 Caller/Recipient Relation to Patient: Self Emergency Contact: MELQUIADES TAYLOR Triage Summary Conducted triage/discussed symptoms Pain Score: 4 Utilized the Triage Tool: Yes Chief Complaint: Shoulder Pain System WHEN: Within 24 Hours Nurse's Recommendation / WHEN: Within 24 Hours System WHERE: Clinic Nurse's Recommendation / WHERE: Urgent Non-VA Patient Disposition Patient/Caregiver agrees to plan of care: Yes Patient WHERE: Urgent Care non-VA Patient WHEN: Within 24 hours Nursing Plan and Disposition Referred Patient for In-Person Appt No appt avail Advised Urgent Care Nurse Summary Nurse Summary: PATIENT CONCERN/DURATION/ONSET: [place] cancelled lab appt because he just took testosterone injection this morning. [place] thought it was for his shoulder because pain is worsening. He felt something pop in the shoulder a couple of weeks ago. Pain 3/10 at rest, increases to 8-9/10 lifting arm above his head. Pain travels down to lower arm. Shoulder pops when he moves it in certain positions. Arm is weaker and he has involuntary movements in finger or thumb. Denies numbness or chest pain. WHAT HAS PATIENT TRIED TO TREAT THE SYMPTOMS: nothing HISTORY/PREVIOUS TREATMENT: OA, chronic left shoulder pain WHAT IS PATIENT GOAL FOR THE CALL: advice for care Was Care Now considered (TELE or VVC)? no SHOVE UP DISPOSITION: Recommended triage is same day same secondary to worsening pain, popping and weakness in left shoulder. Unable to schedule earlier ortho appt. Veterans educated on UC benefit and provided phone numbers for eligibility and locations. Best contact for is (Verified). Advised to call back/seek emergency care if signs or symptoms worsen. (Caller accurately summarized the agreed upon plan of care as discussed in the education portion of this note.) This note was created by a [address] air hole driller. Please do not alert this nurse by adding as a signer for future communications. Alerts are not monitored by this user, please reach out to [facility] instead if indicated. Clinical Contact Center Codes Clinic/Location: [address] PHONE CCC RN [facility] Triage Complete Triage Note: Phone Triage 05 Aug 2023 16:51:06 +0000 [facility] Demographics 52 y/o Male Results CC: Shoulder Pain Software suggested: Within 24 Hours Software suggested follow-up location: Clinic, consider virtual care Values and Measures Duration of CC: 3 Months Positive Responses HPI: shoulder pain, moderate to severe HPI: shoulder pain, worsening VS: temperature not taken Negative Responses Denies: HPI: axillary lymphadenopathy Denies: HPI: chest pain, with shoulder pain Denies: HPI: diaphoresis, with shoulder pain Denies: HPI: dyspnea, with shoulder pain Denies: HPI: fever, subjective Denies: HPI: lightheadedness and shoulder pain, duration longer than 5 minutes Denies: HPI: nausea and shoulder pain, duration longer than 5 minutes Denies: HPI: neck or jaw pain with shoulder pain Denies: HPI: palpitations, with shoulder pain Denies: HPI: shoulder injury, within past 2 days Denies: HPI: shoulder pain, severe Denies: HPI: shoulder swelling, with shoulder pain Denies: HPI: skin erythema, shoulder Denies: HPI: skin lump, swollen, painful, over the shoulder Denies: HPI: skin swelling, shoulder, worsening Denies: HPI: skin tenderness, shoulder, worsening Denies: HPI: syncope, with shoulder pain Denies: HPI: vomiting Denies: HPI: weakness, with shoulder pain, duration longer than 5 minutes Denies: PMH: angina Denies: PMH: heart attack Denies: PMH: rheumatoid arthritis Denies: PMH: systemic lupus erythematosus Denies: PSH: shoulder surgery, within past week /mindy/ WENDI MOREL MS, RN, CNL VISN23 [facility] Signed: 08/05/2023 11:02 WENDI MOREL [facility]
--- OUTSIDE RECORDS SUMMARY | 2023-10-11 15:52 | XMS_ITS | Encounter Summary ---
Author Name Department of Vetera Affairs Organization Department of Vetera Affairs Address [address] [place] [address] Support Name Relationship Address Phone MELQUIADES TAYLOR Vicky Next of Kin [address] [place] [address] MELQUIADES TAYLOR Emergency Contact [phone] [place] [address] Insurance Providers: All historical and [...] PART A January 01, 2016 PART A [id number] [phone] DUSTIN TAYLOR JR PATIENT MEDICARE (WNR) MEDICARE (M) PART B January 01, 2016 PART B [id number] [phone] DUSTIN TAYLOR JR PATIENT Selected Encounter This section includes the information on record at [place] for the Encounter. Date/Time Encounter Type Encounter Description Reason Pro vider Source Aug 12, 2023 11:01 AM Outpatient Encounter COMMUNITY CARE CONSULT IHE Encounter Template Text not used by [place] Plan of Treatment: Future Appointments (+ 6 months) and Future Tests (+/- 45 days) The Plan of Treatment section includes future care activities for the patient from all [place] treatmentfacilities. This section includes future appointments and future orders which are active, pending or scheduled. Future Appointments This section includes appointments that were scheduled to occur 6 months from the date of the Encounter, up to a maximum of 20 appointments. The data comes from all [place] treatment facilities. Appointment Date/Time Appointment Type Appointme nt Facility Name Aug 15, 2023 09:30 AM AMBULATORY - NONE [facility] Aug 20, 2023 01:00 PM AM[place] [facility] Aug 27, 2023 08:30 AM AMBULATORY - NONE [facility] Aug 30, 2023 10:01 AM [place]ONE [place] [facility] Aug 30, 2023 02:00 PM AMBULATORY - NONE [facility] Sep 23, 2023 11:00 AM AMBULATORY - REHAB MEDICIN E [facility] Sep 23, 2023 01:00 PM AMBULATORY - REHAB MEDICIN E [facility] Sep 24, 2023 11:00 AM AMBULATORY - REHAB MEDICIN E [facility] Sep 25, 2023 11:00 AM AMBULATORY - REHAB MEDICIN E [facility] Oct 01, 2023 07:00 AM [place]ONE [place] [facility] Oct 01, 2023 12:30 PM [facility] Oct 01, 2023 01:00 PM AMBUL[facility]ORY - [facility] Oct 04, 2023 02:30 PM AMBULATORY - REHAB MEDICIN E [facility] Oct 14, 2023 11:30 AM AMBULATORY - REHAB MEDICIN E [facility] Oct 25, 2023 11:30 AM AMBULATORY - REHAB MEDICIN E [facility] Oct 31, 2023 01:00 PM AMBULATORY - NONE [facility] Nov 01, 2023 02:00 PM AMBULATORY - NONE [facility] 2023 09:00 AM AMBULATORY - REHAB MEDICIN E [facility] Active, Pending, and Scheduled Orders This section includes a listing of several types of active, pending, and scheduled orders, including clinic medications orders, diagnostic test orders, procedure orders and consult orders; where the start date of the order is 45 days before the date of the Encounter or 45 days after the date of theEncounter. The data comes from all [place] treatment facilities. Test Date/Time Test Type Test Details Facility Name Aug 13, 2023 09:18 AM Consult Order COMMUNITY CARE-CHIROPRACTIC Cons [facility] Aug 30, 2023 02:56 PM Consult Order SLEEP APNE A CLINIC OUTPT Cons [facility] Lab Results: +/- 30 days of the encounter This section includes the Chemistry and Hematology Lab Results on record with [place] for the patient. Radiology Reports and Pathology Reports are provided separately, in subsequent sections. Lab Results This section contains the Chemistry/Hematology Results that were resulted 30 days before or 30 daysafter the date of the Encounter. Date/Time Source Result Type Result - Unit Interpretation Reference Range Comment Aug 27, 2023 08:20 AM [facility] LIPID PANEL,NON-FASTING Specimen Type: PLASMA No comment entered. Ordering Provider: CHRISTINA HAQUE CCA Report Released Date/Time: Feb 27, 2023 08:53 AM Reporting Lab: [facility] [id number] Performing Lab: [facility] [id number] CHOLESTEROL 177 <199 .HDL 49 >40 LDL CALCULATION 113 H <99 VLDL CALCULATION 15 <29 NON HDL CHOLESTEROL 128 <129 TRIG(NON FASTING) 77 <149 Aug 27, 2023 08:[address] [facility] TESTOSTERONE Specimen Type: SERUM No comment entered. Ordering Provider: NISHA SILVER MA Report Released Date/Time: Apr 08, 2023 10:57 AM Reporting Lab: [facility] [id number] Performing Lab: [facility] [id number] TESTOSTERONE [id number] Aug 27, 2023 08:[address] [facility] CBC Specimen Type: BLOOD No comment entered. Ordering Provider: NISHA SILVER MA Report Released Date/Time: Apr 08, 2023 10:57 AM Reporting Lab: [facility] [id number] Performing Lab: [facility] [id number] WBC 9.37 4.0-11.0 RBC 5.79 4.6-6.2 HGB 17.0 13.5-17.9 HCT 52.0 41-54 MCV 89.8 80-100 MCH 29.4 27-33 MCHC 32.7 32.0-37.5 PLT 202 150-400 MPV 10.4 7.4-10.4 RDW 14.5 11.5-14.5 Social History: Smoking Status (Most current) and Tobacco Use (All prior to encounter date) This section includes the most current, and the historical, smoking and tobacco- related health factors from the [place] facility where the Encounter took place. Current Smoking Status This section includes the most current smoking, or tobacco-related health factor, from the [place] facility where the Encounter took place. Date/Time Current Smoking Status Comment Shayne alston Nov 20, 2016 09:03 AM LIFETIME NON-TOBACCO USER [facility] Tobacco Use History This section includes a history of the smoking, or tobacco-related health factors, that were collected on or before the date of the Encounter. The data comes from the [place] facility where the Encounter took place. Date/Time Smoking Status/Tobacco Use Comment F acility Jun 29, 2016 07:34 AM INPT NO TOBACCO USE IN LAST [address] [facility] Dec 12, 2015 12:47 PM LIFETIME NON-TOBACCO USER [facility] Dec 28, 2014 12:34 PM LIFETIME NON-TOBACCO USER [facility] Jul 08, 2012 07:40 AM LIFETIME NON-TOBACCO USER [facility] Encounter Notes: All associated encounter notes This section contains the clinical notes associated to the Encounter. Date/Time Encounter Note(s) Provider Source Aug 12, 2023 11:01 AM NONVA NOTE: LOCAL TITLE: COMMUNITY CARE-REQUEST FOR SERVICE NOTE STANDARD TITLE: NONVA NOTE DATE OF NOTE: AUG 12, 2023@11:01 ENTRY DATE: AUG 12, 2023@11:01:26 AUTHOR: JUDITH HENLEY EXP COSIGNER: URGENCY: STATUS: COMPLETED PACT: Please address Referral for additional services was received from patient's Chiropractic Provider. Please see RFAS and notes uploaded to Chiropractic, Consult #:[id number] Authorization expires 08/17/2023. has used 04/09 visits. All records received. Alerting PACT for review and placement of new consult if indicated. RFS and records uploaded to [facility] note dated 08/09/[address] new consult if clinically indicated, thank you. CHANEL DATE WOULD NEED TO BE AFTER 08/17/2023 IF NEW CONSULT IS PLACED. Please ensure plan of care is communicated to if new consult is not entered. [facility] Care JUSTOWRITER OPERATOR to contact with questions regarding this care: Judith Henley LPN /mindy/ JUDITH HENLEY LPN LPN Signed: 08/12/2023 11:03 Receipt Acknowledged By: 08/13/2023 09:18 /mindy/ RIKA HAQUE PHYSICIAN JUDITH HENLEY [facility]
--- OUTSIDE RECORDS SUMMARY | 2023-10-11 15:52 | XMS_ITS | Encounter Summary ---
Author Name Department of Vetera Affairs Organization Department of Vetera Affairs Address [address] [place] [address] Support Name Relationship Address Phone MELQUIADES TAYLOR Next of Kin [address] [place] [address] MELQUIADES TAYLOR Emergency Contact [address] [place] [address] Insurance Providers: All historical and [...] PART A January 01, 2016 PART A [id number] [phone] DUSTIN TAYLOR JR PATIENT MEDICARE (WNR) MEDICARE (M) PART B January 01, 2016 PART B [id number] DUSTIN TAYLOR JR PATIENT Selected Encounter This section includes the information on record at [place] for the Encounter. Date/Time Encounter Type Encounter Description Reason Pro vider Source Jul 19, 2023 12:00 PM Outpatient Encounter TELEPHONE PRIMARY CARE IHE Encounter Template Text not used by [place] Plan of Treatment: Future Appointments (+ 6 months) and Future Tests (+/- 45 days) The Plan of Treatment section includes future care activities for the patient from all [place] treatmentfacilities. This section includes future appointments and future orders which are active, pending or scheduled. Future Appointments This section includes appointments that were scheduled to occur 6 months from the date of the Encounter, up to a maximum of 20 appointments. The data comes from all [place] treatment facilities. Appointment Date/Time Appointment Type Appointme nt Facility Name Aug 12, 2023 10:30 AM AMBULATORY - NONE [facility] Aug 15, 2023 09:30 AM AMBULATORY - NONE [facility] Aug 20, 2023 01:00 PM [place] [facility] Aug 27, 2023 08:30 AM AMBULATORY - NONE [facility] Aug 30, 2023 10:01 AM [place] [facility] Aug 30, 2023 02:00 PM AMBULATORY - NONE [facility] Sep 23, 2023 11:00 AM AMBULATORY - REHAB MEDICIN E [facility] Sep 23, 2023 01:00 PM AMBULATORY - REHAB MEDICIN E [facility] Sep 24, 2023 11:00 AM AMBULATORY - REHAB MEDICIN E [facility] Sep 25, 2023 11:00 AM AMBULATORY - REHAB MEDICIN E [facility] Oct 01, 2023 07:00 AM [facility] Oct 01, 2023 12:30 PM [facility] Oct 01, 2023 01:00 PM AMBULATORY - SURGERY [facility] Oct 04, 2023 02:30 PM AMBULATORY - REHAB MEDICIN E [facility] Oct 14, 2023 11:30 AM AMBULATORY - REHAB MEDICIN E [facility] Oct 25, 2023 11:30 AM AMBULATORY - REHAB MEDICIN E [facility] Oct 31, 2023 01:00 PM AMBULATORY - NONE [facility] Nov 01, 2023 02:00 PM AMBULATORY - NONE [facility] 2023 09:00 AM AMBULATORY - REHAB MEDICIN E [facility] Active, Pending, and Scheduled Orders This section includes a listing of several types of active, pending, and scheduled orders, including clinic medications orders, diagnostic test orders, procedure orders and consult orders; where the start date of the order is 45 days before the date of the Encounter or 45 days after the date of theEncounter. The data comes from all [place] treatment facilities. Test Date/Time Test Type Test Details Facility Name Aug 13, 2023 09:18 AM Consult Order COMMUNITY CARE-CHIROPRACTIC Cons Supervisor [facility] Aug 30, 2023 02:56 PM Consult Order SLEEP APNE A CLINIC OUTPT Cons Supervisor [facility] Social History: Smoking Status (Most current) and Tobacco Use (All prior to encounter date) This section includes the most current, and the historical, smoking and tobacco- related health factors from the [place] facility where the Encounter took place. Current Smoking Status This section includes the most current smoking, or tobacco-related health factor, from the [facility] where the Encounter took place. Date/Time Current Smoking Status Comment Facil ity Nov 20, 2016 09:03 AM LIFETIME NON-TOBACCO USER [facility] Tobacco Use History This section includes a history of the smoking, or tobacco-related health factors, that were collected on or before the date of the Encounter. The data comes from the [facility] where the Encounter took place. Date/Time Smoking Status/Tobacco Use Comment F acility Jun 29, 2016 07:34 AM INPT NO TOBACCO USE IN LAST 30 D AYS [facility] Dec 12, 2015 12:47 PM LIFETIME NON-TOBACCO USER [facility] Dec 28, 2014 12:34 PM LIFETIME NON-TOBACCO USER [facility] Jul 08, 2012 07:40 AM LIFETIME NON-TOBACCO USER [facility] Encounter Notes: All associated encounter notes This section contains the clinical notes associated to the Encounter. Date/Time Encounter Note(s) Provider Source Jul 19, 2023 12:00 PM NONVA CONSULT: LOCAL TITLE: COMMUNITY CARE CONSULT RESULT CHIROPRACTIC STANDARD TITLE: NONVA CONSULT DATE OF NOTE: JUL 19, 2023@12:00 ENTRY DATE: AUG 12, 2023@10:52:15 AUTHOR: RICHARD HENLEY EXP COSIGNER: URGENCY: STATUS: COMPLETED VistA Imaging - Scanned Document visit 8 of 8 SCANNED DOCUMENT SIGNATURE NOT REQUIRED Electronically Filed: 08/12/2023 by: FALGUNI RAI LPN, JANE M SHAKOPEE RICH
--- OUTSIDE RECORDS SUMMARY | 2023-10-11 15:52 | XMS_ITS | Encounter Summary ---
Author Name Department of Vetera Affairs Organization Department of Vetera Affairs Address [address] [place] [address] Support Name Relationship Address Phone MELQUIADES TAYLOR Next of Kin [address] [place] [address] MELQUIADES TAYLOR Emergency Contact [address] [place] [address] Insurance Providers: All historical and [...] PART A January 01, 2016 PART A [id number] [phone] DUSTIN TAYLOR JR PATIENT MEDICARE (WNR) MEDICARE (M) PART B January 01, 2016 PART B [id number] DUSTIN TAYLOR JR PATIENT Selected Encounter This section includes the information on record at [place] for the Encounter. Date/Time Encounter Type Encounter Description Reason Pro vider Source Aug 09, 2023 12:00 PM Outpatient Encounter TELEPHONE PRIMARY CARE IHE Encounter Template Text not used by [place] Plan of Treatment: Future Appointments (+ 6 months) and Future Tests (+/- 45 days) The Plan of Treatment section includes future care activities for the patient from all [place] treatmentfacilities. This section includes future appointments and future orders which are active, pending or scheduled. Future Appointments This section includes appointments that were scheduled to occur 6 months from the date of the Encounter, up to a maximum of 20 appointments. The data comes from all [place] treatment facilities. Appointment Date/Time Appointment Type Appointme nt Facility Name Aug 12, 2023 10:30 AM AMBULATORY - NONE [facility] Aug 15, 2023 09:30 AM AMBULATORY - NONE [facility] Aug 20, 2023 01:00 PM [place]ORY [place] [facility] Aug 27, 2023 08:30 AM AMBULATORY - NONE [facility] Aug 30, 2023 10:01 AM [place]ONE [place] [facility] Aug 30, 2023 02:00 PM AMBULATORY - NONE [facility] Sep 23, 2023 11:00 AM AMBULATORY - REHAB MEDICIN E [facility] Sep 23, 2023 01:00 PM AMBULATORY - REHAB MEDICIN E [facility] Sep 24, 2023 11:00 AM AMBULATORY - REHAB MEDICIN E [facility] Sep 25, 2023 11:00 AM AMBULATORY - REHAB MEDICIN E [facility] Oct 01, 2023 07:00 AM [facility] Oct 01, 2023 12:30 PM [facility] Oct 01, 2023 01:00 PM AMBULATORY - SURGERY [facility] Oct 04, 2023 02:30 PM AMBULATORY - REHAB MEDICIN E [facility] Oct 14, 2023 11:30 AM AMBULATORY - REHAB MEDICIN E [facility] Oct 25, 2023 11:30 AM AMBULATORY - REHAB MEDICIN E [facility] Oct 31, 2023 01:00 PM AMBULATORY - NONE [facility] Nov 01, 2023 02:00 PM AMBULATORY - NONE [facility] 2023 09:00 AM AMBULATORY - REHAB MEDICIN E [facility] Active, Pending, and Scheduled Orders This section includes a listing of several types of active, pending, and scheduled orders, including clinic medications orders, diagnostic test orders, procedure orders and consult orders; where the start date of the order is 45 days before the date of the Encounter or 45 days after the date of theEncounter. The data comes from all [place] treatment facilities. Test Date/Time Test Type Test Details Facility Name Aug 13, 2023 09:18 AM Consult Order COMMUNITY CARE-CHIROPRACTIC Cons Hospital [facility] Aug 30, 2023 02:56 PM Consult Order SLEEP APNE A CLINIC OUTPT Cons [facility] Lab Results: +/- 30 days of the encounter This section includes the Chemistry and Hematology Lab Results on record with [place] for the patient. Radiology Reports and Pathology Reports are provided separately, in subsequent sections. Lab Results This section contains the Chemistry/Hematology Results that were resulted 30 days before or 30 daysafter the date of the Encounter. Date/Time Source Result Type Result - Unit Interpretation Reference Range Comment Aug 27, 2023 08:20 AM [facility] LIPID PANEL,NON-FASTING Specimen Type: PLASMA No comment entered. Ordering Provider: CHRISTINA HAQUE CCA Report Released Date/Time: Feb 27, 2023 08:53 AM Reporting Lab: [facility] [id number] Performing Lab: [facility] [id number] CHOLESTEROL 177 <199 .HDL 49 >40 LDL CALCULATION 113 H <99 VLDL CALCULATION 15 <29 NON HDL CHOLESTEROL 128 <129 TRIG(NON FASTING) 77 <149 Aug 27, 2023 08:20 AM [facility] TESTOSTERONE Specimen Type: SERUM No comment entered. Ordering Provider: NISHA SILVER MA Report Released Date/Time: Apr 08, 2023 10:57 AM Reporting Lab: [facility] [id number] Performing Lab: [facility] [id number] TESTOSTERONE 1382 [id number] Aug 27, 2023 08:20 AM [facility] CBC Specimen Type: BLOOD No comment entered. Ordering Provider: NISHA SILVER MA Report Released Date/Time: Apr 08, 2023 10:57 AM Reporting Lab: [facility] [id number] Performing Lab: [facility] [id number] WBC 9.37 4.0-11.0 RBC 5.79 4.6-6.2 HGB 17.0 13.5-17.9 HCT 52.0 41-54 MCV 89.8 80-100 MCH 29.4 27-33 MCHC 32.7 32.0-37.5 PLT 202 150-400 MPV 10.4 7.4-10.4 RDW 14.5 11.5-14.5 Social History: Smoking Status (Most current) and Tobacco Use (All prior to encounter date) This section includes the most current, and the historical, smoking and tobacco- related health factors from the [place] facility where the Encounter took place. Current Smoking Status This section includes the most current smoking, or tobacco-related health factor, from the [place] facility where the Encounter took place. Date/Time Current Smoking Status Comment Shayne alston Nov 20, 2016 09:03 AM LIFETIME NON-TOBACCO USER [facility] Tobacco Use History This section includes a history of the smoking, or tobacco-related health factors, that were collected on or before the date of the Encounter. The data comes from the [place] facility where the Encounter took place. Date/Time Smoking Status/Tobacco Use Comment F acility Jun 29, 2016 07:34 AM INPT NO TOBACCO USE IN LAST 30 D AYS [facility] Dec 12, 2015 12:47 PM LIFETIME NON-TOBACCO USER [facility] Dec 28, 2014 12:34 PM LIFETIME NON-TOBACCO USER [facility] Jul 08, 2012 07:40 AM LIFETIME NON-TOBACCO USER [facility] Encounter Notes: All associated encounter notes This section contains the clinical notes associated to the Encounter. Date/Time Encounter Note(s) Provider Source Aug 09, 2023 12:00 PM NONVA CONSULT: LOCAL TITLE: COMMUNITY CARE CONSULT RESULT CHIROPRACTIC STANDARD TITLE: NONVA CONSULT DATE OF NOTE: AUG 09, 2023@12:00 ENTRY DATE: AUG 12, 2023@11:06:45 AUTHOR: RCIHARD HENLEY EXP COSIGNER: URGENCY: STATUS: COMPLETED VistA Imaging - Scanned Document Please see RFAS and notes uploaded to Chiropractic, Consult #:[id number] Authorization expires 08/17/2023. has used 8/8 visits. All records received. CHANEL DATE WOULD NEED TO BE AFTER 08/17/2023 IF NEW CONSULT IS PLACED. SCANNED DOCUMENT SIGNATURE NOT REQUIRED Electronically Filed: 08/12/2023 by: FALGUNI RAI LPN, JANE M SHAKOPEE [facility]
--- OUTSIDE RECORDS SUMMARY | 2023-10-11 15:53 | XMS_ITS | Encounter Summary ---
Author Name Department of Vetera Affairs Organization Department of Vetera Affairs Address [address] [place] [address] Support Name Relationship Address Phone MELQUIADES TAYLOR Vicky Next of Kin [address] [place] [address] MELQUIADES TAYLOR Emergency Contact [address] [place] [address] Insurance Providers: All historical and [...] PART A January 01, 2016 PART A [id number] [phone] DUSTIN TAYLOR JR PATIENT MEDICARE (WNR) MEDICARE (M) PART B January 01, 2016 PART B [id number] [phone] DUSTIN TAYLOR JR PATIENT Selected Encounter This section includes the information on record at [place] for the Encounter. Date/Time Encounter Type Encounter Description Reason Pro vider Source Aug 19, 2023 07:14 PM Outpatient Encounter COMMUNITY CARE CONSULT IHE Encounter Template Text not used by DC Plan of Treatment: Future Appointments (+ 6 months) and Future Tests (+/- 45 days) The Plan of Treatment section includes future care activities for the patient from all [place] treatmentfacilities. This section includes future appointments and future orders which are active, pending or scheduled. Future Appointments This section includes appointments that were scheduled to occur 6 months from the date of the Encounter, up to a maximum of 20 appointments. The data comes from all [place] treatment facilities. Appointment Date/Time Appointment Type Appointme nt Facility Name Aug 20, 2023 01:00 PM AMBULATORY - [place]GERY [place] [facility] Aug 27, 2023 08:30 AM AMBULATORY - NONE [facility] Aug 30, 2023 10:01 AM [place] [place]ONE [place] [facility] Aug 30, 2023 02:00 PM AMBULATORY - NONE [facility] Sep 23, 2023 11:00 AM AMBULATORY - REHAB MEDICIN E [facility] Sep 23, 2023 01:00 PM AMBULATORY - REHAB MEDIC[facility] E [facility] Sep 24, 2023 11:00 AM AMBULATORY - REHAB MED[facility] E [facility] Sep 25, 2023 11:00 AM AMBULATORY - REHAB MED[facility] E [facility] Oct 01, 2023 07:00 AM [place]ORY [place]ONE [place] [facility] Oct 01, 2023 12:30 PM [facility]ORY [place]ONE [place] [facility] Oct 01, 2023 01:00 PM AMBULATORY - SURGERY [facility] Oct 04, 2023 02:30 PM AMBULATORY - REHAB MEDICIN E [facility] Oct 14, 2023 11:30 AM AMBULATORY - REHAB MED[facility] E [facility] Oct 25, 2023 11:30 AM AMBULATORY - REHAB [facility] E [facility] Oct 31, 2023 01:00 PM AMBULATORY - NONE [facility] Nov 01, 2023 02:00 PM AMBULATORY - NONE [facility] 2023 09:00 AM AMBULATORY - REHAB MEDICIN E [facility] Active, Pending, and Scheduled Orders This section includes a listing of several types of active, pending, and scheduled orders, including clinic medications orders, diagnostic test orders, procedure orders and consult orders; where the start date of the order is 45 days before the date of the Encounter or 45 days after the date of theEncounter. The data comes from all [place] treatment [facility]. 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 Ordering Provider: CHRISTINA HAQUE CCA Report Released Date/Time: Feb 27, 2023 08:53 AM Reporting Lab: [facility] [id number] Performing Lab: [facility] [id number] CHOLESTEROL 177 <199 .HDL 49 >40 LDL CALCULATION 113 H <99 VLDL CALCULATION 15 <29 NON HDL CHOLESTEROL 128 <129 TRIG(NON FASTING) 77 <149 Aug 27, 2023 08:[address] [facility] TESTOSTERONE Specimen Type: SERUM No comment entered. Ordering Provider: NISHA SILVER MA Report Released Date/Time: Apr 08, 2023 10:57 AM Reporting Lab: [facility] [id number] Performing Lab: [facility] [id number] TESTOSTERONE 1382 H [id number] Aug 27, 2023 08:[address] [facility] CBC Specimen Type: BLOOD No comment entered. Ordering Provider: NISHA SILVER MA Report Released Date/Time: Apr 08, 2023 10:57 AM Reporting Lab: [facility] [id number] Performing Lab: [facility] [id number] WBC 9.37 4.0-11.0 RBC 5.79 4.6-6.2 HGB 17.0 13.5-17.9 HCT 52.0 41-54 MCV 89.8 80-100 MCH 29.4 27-33 MCHC 32.7 32.0-37.5 PLT 202 150-400 MPV 10.4 7.4-10.4 RDW 14.5 11.5-14.5 Social History: Smoking Status (Most current) and Tobacco Use (All prior to encounter date) This section includes the most current, and the historical, smoking and tobacco- related health factors from the [facility] where the Encounter took place. Current Smoking Status This section includes the most current smoking, or tobacco-related health factor, from the [place] facility where the Encounter took place. Date/Time Current Smoking Status Comment Shayne alston Nov 20, 2016 09:03 AM LIFETIME NON-TOBACCO USER [facility] Tobacco Use History This section includes a history of the smoking, or tobacco-related health factors, that were collected on or before the date of the Encounter. The data comes from the [place] facility where the Encounter took place. Date/Time Smoking Status/Tobacco Use Comment F acility Jun 29, 2016 07:34 AM INPT NO TOBACCO USE IN LAST [address] [facility] Dec 12, 2015 12:47 PM LIFETIME NON-TOBACCO USER [facility] Dec 28, 2014 12:34 PM LIFETIME NON-TOBACCO USER [facility] Jul 08, 2012 07:40 AM LIFETIME NON-TOBACCO USER [facility] Encounter Notes: All associated encounter notes This section contains the clinical notes associated to the Encounter. Date/Time Encounter Note(s) Provider Source Aug 19, 2023 07:14 PM NONVA NOTE: LOCAL TITLE: COMMUNITY CARE PRE-AUTH LETTER (AUTOPRINT) STANDARD TITLE: NONVA NOTE DATE OF NOTE: AUG 19, 2023@19:14 ENTRY DATE: AUG 19, 2023@19:14:18 AUTHOR: FRANKY YU EXP COSIGNER: URGENCY: STATUS: COMPLETED Aug DUSTIN TAYLOR [address], [place] [address] Dear DUSTIN TAYLOR, Your VA provider has referred you to a provider within the community for care. Your medical care for Chiropractic has been authorized with the community care provider listed below. DO NOT REPORT TO THE [place] [facility] [place] Provider info: Care has been approved for the following vendor: Office name, address, and phone number: [facility] [address] [place] [address]. [phone] P: [phone] Please contact the identified provider to schedule your community appointment. If you need assistance with this appointment, please call your facility community care office [facility] Office of Community Care at [phone] during the hours of 8:30AM - 3:00PM. Please follow up with your local [facility] community care office once this is scheduled. This step is needed to ensure your referral duration is maximized and the DC has accurate referral information for billing purposes. Authorization Number: [id number] Referral Issue Date: Aug Expiration Date: Jan (subject to change based on first appointment) If you are unable to schedule this appointment or the appointment is no longer needed, please contact the community provider above for notification/rescheduling and then call the [facility] Office of Community Care at [phone] during the hours of 8:30AM - 3:00PM. If you need additional care/services not mentioned above or your authorization has and additional care is needed, please contact your primary care provider for a new referral. To review all care/service(s) approved under your referral, please go to the following link: [employer] [facility]([email or web address]) Co-Payments: If you are required to pay a VA co-payment, you will be billed by the DC for each authorized visit that you attend. However, you are NOT REQUIRED to make co-payments to a community provider. Medical Devices: Your community provider may recommend that medical devices, adapted equipment, or other items be provided for the treatment or rehabilitation of your medical condition. Veterans are generally required to obtain these items through the [facility] Office of Community Care by calling [phone]. Thank you for the opportunity to serve you. Sincerely, DC Community [facility] (VACC) /mindy/ FRANKY MIN Signed: 08/19/2023 19:[address] [facility]
--- OUTSIDE RECORDS SUMMARY | 2023-10-11 15:53 | XMS_ITS | Encounter Summary ---
Author Name Department of Vetera [facility] Organization Department of Vetera Affairs Address [address] [place] [address] Support Name Relationship Address Phone BRANDONMELQUIADES Vicky Next of Kin [address] [place] [address] MELQUIADES TAYLOR Emergency Contact [address] [place] [address] Insurance Providers: All historical and [...] PART A January 01, 2016 PART A [id number] 76A [phone] DUSTIN TAYLOR JR PATIENT MEDICARE (WNR) MEDICARE (M) PART B January 01, 2016 PART B [id number] [phone] DUSTIN TAYLOR JR PATIENT Selected Encounter This section includes the information on record at [place] for the Encounter. Date/Time Encounter Type Encounter Description Reason Provider Source Aug 20, 2023 01:00 PM OFFICE O/P EST MOD 30-39 MIN ORTHO/JOINT SURG ICD-10-CM M25.512 Pain in left shoulder BAYRON PHAM MD [facility] Encounter Template Text not used by [place] Assessments - Encounter Diagnoses This section includes the primary and secondary diagnoses documented for the Encounter. Date/Time Primary/Secondary Diagnosis Diagnosis Name Provider Source Aug 20, 2023 03:49 PM PRIMARY Pain in left shoulder BAYRON PHAM MD [facility] Plan of Treatment: Future Appointments (+ 6 months) and Future Tests (+/- 45 days) The Plan of Treatment section includes future care activities for the patient from all [place] [facility]. This section includes future appointments and future orders which are active, pending or scheduled. Future Appointments This section includes appointments that were scheduled to occur 6 months from the date of the Encounter, up to a maximum of 20 appointments. The data comes from all [facility]. Appointment Date/Time Appointment Type Appointme nt Facility Name Aug 27, 2023 08:30 AM AMBULATORY - NONE [place] [facility] Aug 30, 2023 10:01 AM [place] - [place] [facility] Aug 30, 2023 02:00 PM AMBULATORY - NONE [facility] Sep 23, 2023 11:00 AM AMBULATORY - REHAB MEDICIN E [facility] Sep 23, 2023 01:00 PM AMBULATORY - REHAB MEDICIN E [facility] Sep 24, 2023 11:00 AM AMBULATORY - REHAB MEDICIN E [facility] Sep 25, 2023 11:00 AM AMBULATORY - REHAB MEDICIN E [facility] Oct 01, 2023 07:00 AM [place]ORY - NONE [place] [facility] Oct 01, 2023 12:30 PM [place] - [place]ONE [place] [facility] Oct 01, 2023 01:00 PM AM[place]UL[place]ORY - [place]GERY [place] [facility] Oct 04, 2023 02:30 PM AMBULATORY - REHAB MEDICIN E [facility] Oct 14, 2023 11:30 AM AMBULATORY - REHAB MEDICIN E [facility] Oct 25, 2023 11:30 AM AMBULATORY - REHAB MEDICIN E [facility] Oct 31, 2023 01:00 PM AMBULATORY - NONE [place] [facility] Nov 01, 2023 02:00 PM AMBULATORY - NONE [place] [facility] 2023 09:00 AM AMBULATORY - REHAB MEDICIN E [facility] Active, Pending, and Scheduled Orders This section includes a listing of several types of active, pending, and scheduled orders, including clinic medications orders, diagnostic test orders, procedure orders and consult orders; where the start date of the order is 45 days before the date of the Encounter or 45 days after the date of theEncounter. The data comes from all [facility]. Test Date/Time Test Type Test Details Facility Name Aug 13, 2023 09:18 AM Consult Order COMMUNITY CARE-CHIROPRACTIC Cons Project Management[facility] Aug 30, 2023 02:56 PM Consult Order SLEEP APNE A CLINIC OUTPT Cons [facility] Lab Results: +/- 30 days of the [...] Range Comment Aug 27, 2023 08:20 AM [place] [facility] LIPID PANEL,NON-FASTING Specimen Type: PLASMA No comment entered. Ordering Provider: CHRISTINA HAQUE CCA Report Released Date/Time: Feb 27, 2023 08:53 AM Reporting Lab: [facility] [id number] Performing Lab: [facility] [address] CHOLESTEROL 177 <199 .HDL 49 >40 LDL CALCULATION 113 H <99 VLDL CALCULATION 15 <29 NON HDL CHOLESTEROL 128 <129 TRIG(NON FASTING) 77 <149 Aug 27, 2023 08:20 AM [facility] TESTOSTERONE Specimen Type: SERUM No comment entered. Ordering Provider: NISHA SILVER MA Report Released Date/Time: Apr 08, 2023 10:57 AM Reporting Lab: [facility] [id number] Performing Lab: [facility] [address] TESTOSTERONE 1382 H [id number] Aug 27, 2023 08:20 AM [facility] CBC Specimen Type: BLOOD No comment entered. Ordering Provider: NISHA SILVER MA Report Released Date/Time: Apr 08, 2023 10:57 AM Reporting Lab: [facility] [id number] Performing Lab: [facility] [address] WBC 9.37 4.0-11.0 RBC 5.79 4.6-6.2 HGB [...] smoking, or tobacco-related health factor, from the [facility] where the Encounter took place. Date/Time Current Smoking Status Comment Shayne alston Nov 20, 2016 09:03 AM LIFETIME NON-TOBACCO USER [facility] Tobacco Use History This section includes a history of the smoking, or tobacco-related health factors, that were collected on or before the date of the Encounter. The data comes from the [facility] where the Encounter took place. Date/Time Smoking Status/Tobacco Use Comment F acility Jun 29, 2016 07:34 AM INPT NO TOBACCO USE IN LAST 30 D AYS [facility] Dec 12, 2015 12:47 PM LIFETIME NON-TOBACCO USER [facility] Dec 28, 2014 12:34 PM LIFETIME NON-TOBACCO USER [facility] Jul 08, 2012 07:40 AM LIFETIME NON-TOBACCO USER [facility] Encounter Notes: All associated encounter notes This section contains the clinical notes associated to the Encounter. Date/Time Encounter Note(s) Provider Source Aug 20, 2023 01:39 PM ORTHOPEDIC SURGERY CONSULT: LOCAL TITLE: ORTHOPEDIC CONSULT STANDARD TITLE: ORTHOPEDIC SURGERY CONSULT DATE OF NOTE: AUG 20, 2023@13:39 ENTRY DATE: AUG 20, 2023@13:39:07 AUTHOR: BAYRON PHAM MD EXP COSIGNER: URGENCY: STATUS: COMPLETED Orthopedic clinic note 52-year-old gentleman seen 1 year ago regarding left shoulder pain that improved with conservative measures after an arthrogram that showed no surgical indications but a possible small rotator cuff tear. His symptoms at that time did not correlate with cuff pathology. Because of his young age we wanted to follow-up with him in a year to check on his symptoms, and if they seemed cuff related we would reevaluate for cuff tear or cuff tear enlargement with an MRI scan. He reports today that he had done quite well since I saw him last until a month ago when he was lifting weights with a dumbbell. He felt a pop and pain in the shoulder. He is been unable to work out in the gym since that time. He has, however, been steadily improving since the time of the injury. He is now able to raise his arm above his shoulder. He is able to do more weight below the level of the shoulder than he was initially. He does still feel a popping in the shoulder. Good static scapular position Severe scapular dyskinesis Significantly decreased pain with scapular retraction and scapular assist maneuvers Decrease strength in external rotation and pain with resisted external rotation. 52-year-old gentleman with increase in his left shoulder pain after a lifting injury in the gym. There was concern for a very small cuff tear on his last scan. Because of this and his symptoms of cuff weakness and pain with resisted external rotation and mechanical symptoms we will further evaluate with a repeat scan at this time. He has also developed severe scapular dyskinesis and we need to correct this if were going to get the shoulder to feel better. Plan: MRI to eval cuff PT corrrect scap mechanics f/u 6 weeks with new x-rays /es/ BAYRON PHAM MD STAFF SURGEON Signed: 08/20/2023 15:49 BAYRON PHAM MD [facility]
--- OUTSIDE RECORDS SUMMARY | 2023-10-11 15:53 | XMS_ITS | Encounter Summary ---
Author Name Department of Vetera Affairs Organization Department of Vetera ns Affairs Address [address] [place] [address] Support Name Relationship Address Phone BRANDON, MELQUIADES L Next of Kin [address] [place] [address] MELQUIADES TAYLOR Emergency Contact [address] [place] [address] Insurance Providers: All historical and [...] PART A January 01, 2016 PART A [id number] 76A [phone] DUSTIN TAYLOR JR PATIENT MEDICARE (WNR) MEDICARE (M) PART B January 01, 2016 PART B [id number] 76A [phone] DUSTIN TAYLOR JR PATIENT Selected Encounter This section includes the information on record at [place] for the Encounter. Date/Time Encounter Type Encounter Description Reason Pro vider Source Aug 15, 2023 09:30 AM Outpatient Encounter TELEPHONE PRIMARY CARE IHE Encounter Template Text not used by [place] Plan of Treatment: Future Appointments (+ 6 months) and Future Tests (+/- 45 days) The Plan of Treatment section includes future care activities for the patient from all [place] treatmentfacilities. This section includes future appointments and future orders which are active, pending or scheduled. Future Appointments This section includes appointments that were scheduled to occur 6 months from the date of the Encounter, up to a maximum of 20 appointments. The data comes from all [place] treatment facilities. Appointment Date/Time Appointment Type Appointme nt Facility Name Aug 20, 2023 01:00 PM AMBULATORY - [place]GERY [place] [facility] Aug 27, 2023 08:30 AM AMBULATORY - NONE [facility] Aug 30, 2023 10:01 AM [facility] [place]ONE [place] [facility] Aug 30, 2023 02:00 PM AMBULATORY - NONE [facility] Sep 23, 2023 11:00 AM AMBULATORY - REHAB MEDICIN E [facility] Sep 23, 2023 01:00 PM AMBULATORY - REHAB MEDICIN E [facility] Sep 24, 2023 11:00 AM AMBULATORY - REHAB MEDICIN E [facility] Sep 25, 2023 11:00 AM AMBULATORY - REHAB MEDICIN E [facility] Oct 01, 2023 07:00 AM [facility]ORY - NONE [place] [facility] Oct 01, 2023 12:30 PM [facility]ONE [place] [facility] Oct 01, 2023 01:00 PM AMBULATORY - SURGERY [facility] Oct 04, 2023 02:30 PM AMBULATORY - REHAB MEDICIN E [facility] Oct 14, 2023 11:30 AM AMBULATORY - REHAB MEDICIN E [facility] Oct 25, 2023 11:30 AM AMBULATORY - REHAB MEDICIN E [facility] Oct 31, 2023 01:00 PM AMBULATORY - NONE [facility] Nov 01, 2023 02:00 PM AMBULATORY - NONE [facility] 2023 09:00 AM AMBULATORY - REHAB MEDICIN E [facility] Active, Pending, and Scheduled Orders This section includes a listing of several types of active, pending, and scheduled orders, including clinic medications orders, diagnostic test orders, procedure orders and consult orders; where the start date of the order is 45 days before the date of the Encounter or 45 days after the date of theEncounter. The data comes from all [place] treatment [facility]. Test Date/Time Test Type Test Details Facility Name Aug 13, 2023 09:18 AM Consult Order COMMUNITY CARE-CHIROPRACTIC Cons Director Of Home Care [facility] Aug 30, 2023 02:56 PM Consult Order SLEEP APNE A CLINIC OUTPT Cons Director Of Home Care [facility] Lab Results: +/- 30 days of [...] Range Comment Aug 27, 2023 08:20 AM [facility] LIPID PANEL,NON-FASTING Specimen Type: PLASMA No comment entered. Ordering Provider: CHRISTINA HAQUE CCA Report Released Date/Time: Feb 27, 2023 08:53 AM Reporting Lab: [facility] [id number] Performing Lab: [facility] [address] CHOLESTEROL 177 <199 .HDL 49 >40 LDL CALCULATION 113 H <99 VLDL CALCULATION 15 <29 NON HDL CHOLESTEROL 128 <129 TRIG(NON FASTING) 77 <149 Aug 27, 2023 08:20 AM [facility] TESTOSTERONE Specimen Type: SERUM No comment entered. Ordering Provider: NISHA SILVER MA Report Released Date/Time: Apr 08, 2023 10:57 AM Reporting Lab: [facility] [address] Performing Lab: [facility] [id number] TESTOSTERONE 1382 H [id number] Aug 27, 2023 08:20 AM [facility] CBC Specimen Type: BLOOD No comment entered. Ordering Provider: NISHA SILVER MA Report Released Date/Time: Apr 08, 2023 10:57 AM Reporting Lab: [facility] [address] Performing Lab: [facility] [address] WBC 9.37 4.0-11.0 RBC 5.79 4.6-6.2 HGB 17.0 13.5-17.9 HCT 52.0 41-54 MCV 89.8 80-100 MCH 29.4 27-33 MCHC 32.7 32.0-37.5 PLT 202 150-400 MPV 10.4 7.4-10.4 RDW 14.5 11.5-14.5 Social History: Smoking Status (Most current) and Tobacco Use (All prior to encounter date) This section includes the most current, and the historical, smoking and tobacco- related health factors from the [facility] where the Encounter took place. Current Smoking Status This section includes the most current smoking, or tobacco-related health factor, from the [place] facility where the Encounter took place. Date/Time Current Smoking Status Comment Facil ity Feb 26, 2023 01:30 PM VA-TOBACCO NEVER USED [facility] Tobacco Use History This section includes a history of the smoking, or tobacco-related health factors, that were collected on or before the date of the Encounter. The data comes from the [place] facility where the Encounter took place. Date/Time Smoking Status/Tobacco Use Comment F acility Feb 22, 2022 01:00 PM VA-TOBACCO NEVER USED [facility] Mar 20, 2021 11:00 AM VA-TOBACCO NEVER USED [facility] Feb 11, 2020 10:37 AM VA-TOBACCO NEVER USED [facility] Feb 24, 2019 02:07 PM VA-TOBACCO NEVER USED [facility] Feb 17, 2018 04:20 PM LIFETIME NON-TOBACCO USER [facility] Encounter Notes: All associated encounter notes This section contains the clinical notes associated to the Encounter. Date/Time Encounter Note(s) Provider Source Aug 15, 2023 09:39 AM NO SHOW NOTE: LOCAL TITLE: NO SHOW/CANCELLATION CLINIC NOTE STANDARD TITLE: NO SHOW NOTE DATE OF NOTE: AUG 15, 2023@09:39 ENTRY DATE: AUG 15, 2023@09:39:45 AUTHOR: LEANNE GREEN EXP COSIGNER: URGENCY: STATUS: COMPLETED Date of appointment: 08/15/2023 Provider: SHIRA JOHANSEN PHONE PHARM 1 Reason for appointment: testosterone follow-up Telephoned patient today at scheduled appointment time x with no answer. Unable to leave VM as the VM box is full. Reason for No Show: [X] Unknown [] No letter/Phone Call [] No Knowledge [] Other: No show follow up plan: [X] Return to Clinic Next Available appointment [] Discharge from Primary Care Clinic [] No Show for Injections: Patient to Call. JOSE to please NO-SHOW today's appointment and reschedule patient in [facility] PACT PHONE PHARM 1 grid 1-2 days after a lab appointment, at patient's and grid's convenience. Thank you! /mindy/ LEANNE GREEN CLINICAL PARCEL POST TRUCK DRIVER Signed: 08/15/2023 09:40 Receipt Acknowledged By: 08/15/2023 09:50 /mindy/ MICHELLE LOPEZ MSA, LEANNE BAKER OC
--- OUTSIDE RECORDS SUMMARY | 2023-10-11 15:53 | XMS_ITS | Encounter Summary ---
Author Name [facility] [employer] Organization [facility] [employer] Address [address] [place] [address] Support Name Relationship Address Phone MELQUIADES TAYLOR Vicky Next of Kin [address] [place] [address] MELQUIADES TAYLOR Emergency Contact [address] [place] [address] Insurance Providers: All historical and [...] PART A January 01, 2016 PART A [id number] [phone] DUSTIN TAYLOR JR PATIENT MEDICARE (WNR) MEDICARE (M) PART B January 01, 2016 PART B [id number] [phone] DUSTIN TAYLOR JR PATIENT Selected Encounter This section includes the information on record at [place] for the Encounter. Date/Time Encounter Type Encounter Description Reason Pro vider Source Aug 28, 2023 09:22 AM Outpatient Encounter PRIMARY CARE/MEDICINE IHE Encounter Template Text not used by [place] Plan of Treatment: Future Appointments (+ 6 months) and Future Tests (+/- 45 days) The Plan of Treatment section includes future care activities for the patient from all [place] treatmentfacilities. This section includes future appointments and future orders which are active, pending or scheduled. Future Appointments This section includes appointments that were scheduled to occur 6 months from the date of the Encounter, up to a maximum of 20 appointments. The data comes from all [place] treatment facilities. Appointment Date/Time Appointment Type Appointme nt Facility Name Aug 30, 2023 10:01 AM AMBULATORY - NONE [facility] Aug 30, 2023 02:00 PM AM[facility]ATORY - NONE [facility] Sep 23, 2023 11:00 AM AMBULATORY - REHAB [facility]ICIN E [facility] Sep 23, 2023 01:00 PM AMBULATORY - REHAB MEDICIN E [facility] Sep 24, 2023 11:00 AM AMBULATORY - REHAB MEDICIN E [facility] Sep 25, 2023 11:00 AM AMBULATORY - REHAB MEDICIN E [facility] Oct 01, 2023 07:00 AM AMBULATORY - NONE [facility] Oct 01, 2023 12:30 PM AM[facility]UL[facility]ORY - NONE [facility] Oct 01, 2023 01:00 PM [facility] Oct 04, 2023 02:30 PM AMBULATORY - REHAB MEDICIN E [facility] Oct 14, 2023 11:30 AM AMBULATORY - REHAB MEDICIN E [facility] Oct 25, 2023 11:30 AM AMBULATORY - REHAB MEDICIN E [facility] Oct 31, 2023 01:00 PM AMBULATORY - NONE [facility] Nov 01, 2023 02:00 PM AMBULATORY - NONE [facility] 2023 09:00 AM AMBULATORY - REHAB MEDICIN E [facility] Feb 26, 2024 01:30 PM AMBULATORY - [...] of theEncounter. The data comes from all [facility]. Test Date/Time Test Type Test Details Facility Name Aug 13, 2023 09:18 AM Consult Order COMMUNITY CARE-CHIROPRACTIC [facility] [employer] Aug 30, 2023 02:56 PM Consult Order [facility]EP [facility] OUTPT [facility] Lab Results: +/- 30 days of the encounter This section includes the Chemistry and Hematology Lab Results on record with [place] for the patient. Radiology Reports and Pathology Reports are provided separately, in subsequent sections. Lab Results This section contains the Chemistry/Hematology Results that were resulted 30 days before or 30 daysafter the date of the Encounter. Date/Time Source Result Type Result - Unit Interpretation Reference Range Comment Aug 27, 2023 08:20 AM [facility] LIPID PANEL,NON-FASTING Specimen Type: PLASMA No comment entered. Ordering Provider: CHRISTINA HAQUE CCA Report Released Date/Time: Feb 27, 2023 08:53 AM Reporting Lab: [facility] [id number] Performing Lab: [facility] [id number] CHOLESTEROL 177 <199 .HDL 49 >40 LDL CALCULATION 113 H <99 VLDL CALCULATION 15 <29 NON HDL CHOLESTEROL 128 <129 TRIG(NON FASTING) 77 <149 Aug 27, 2023 08:20 AM [facility] TESTOSTERONE Specimen Type: SERUM No comment entered. Ordering Provider: NISHA SILVER MA Report Released Date/Time: Apr 08, 2023 10:57 AM Reporting Lab: [facility] [id number] Performing Lab: [facility] [phone] TESTOSTERONE 1382 [id number] Aug 27, 2023 08:20 AM [facility] CBC Specimen Type: BLOOD No comment entered. Ordering Provider: NISHA SILVER MA Report Released Date/Time: Apr 08, 2023 10:57 AM Reporting Lab: [facility] [id number] Performing Lab: [facility] [id number] WBC 9.37 4.0-11.0 RBC 5.79 4.6-6.2 HGB 17.0 13.5-17.9 HCT 52.0 41-54 MCV 89.8 80-100 MCH 29.4 27-33 MCHC 32.7 32.0-37.5 PLT 202 150-400 MPV 10.4 7.4-10.4 RDW 14.5 11.5-14.5 Social History: Smoking Status (Most current) and Tobacco Use (All prior to encounter date) This section includes the most current, and the historical, smoking and tobacco- related health factors from the [facility] where the Encounter took place. Current Smoking Status This section includes the most current smoking, or tobacco-related health factor, from the [place] facility where the Encounter took place. Date/Time Current Smoking Status Comment Shayne alston Nov 20, 2016 09:03 AM LIFETIME NON-TOBACCO USER [facility] Tobacco Use History This section includes a history of the smoking, or tobacco-related health factors, that were collected on or before the date of the Encounter. The data comes from the [place] facility where the Encounter took place. Date/Time Smoking Status/Tobacco Use Comment F acility Jun 29, 2016 07:34 AM INPT NO TOBACCO USE IN LAST 30 D AYS [facility] Dec 12, 2015 12:47 PM LIFETIME NON-TOBACCO USER [facility] Dec 28, 2014 12:34 PM LIFETIME NON-TOBACCO USER [facility] Jul 08, 2012 07:40 AM LIFETIME NON-TOBACCO USER [facility] Encounter Notes: All associated encounter notes This section contains the clinical notes associated to the Encounter. Date/Time Encounter Note(s) Provider Source Aug 28, 2023 09:22 AM LETTERS: LOCAL TITLE: FOLLOW UP RESULTS LETTER STANDARD TITLE: LETTERS DATE OF NOTE: AUG 28, 2023@09:22 ENTRY DATE: AUG 28, 2023@09:22:37 AUTHOR: RIKA HAQUE EXP COSIGNER: URGENCY: STATUS: COMPLETED [facility] [address] [place] [address] Aug [facility]IN [facility] [address] [place] [id number] Dear [place]: I am writing to inform you of the results of testing that you had done recently at the [facility]. - Cholesterol Tests (HDL = good and LDL = bad) CHOLESTEROL 177 (08/27/23) (prefer less than 200) HDL 49 (08/27/23) (prefer more than 39) LDL CALCULATION 113 H (08/27/23) (prefer less than 100) MEASURED LDL____ (prefer less than 100) TRIGLYCERIDE____ (prefer less than 150) Additional Comments: Your ldl has improved by 10 points. Keep working at it since you have made improvements. If you have any further questions or problems, please contact our nursing staff or provider at the following number: [phone]. Sincerely, RIKA HAQUE PHYSICIAN RIKA HAQUE OC
--- OUTSIDE RECORDS SUMMARY | 2023-10-11 15:53 | XMS_ITS | Encounter Summary ---
Author Name [facility] Organization Department of [facility] Address [address] [place] [address] Support Name Relationship Address Phone BRANDONGILMAMELQUIADES L Next of Kin [address] [place] [address] MELQUIADES TAYLOR Emergency Contact [address] [place] [address] Insurance Providers: All historical and [...] PART A January 01, 2016 PART A [id number] 76A [phone] DUSTIN TAYLOR JR PATIENT MEDICARE (WNR) MEDICARE (M) PART B January 01, 2016 PART B [id number] 76A [phone] DUSTIN TAYLOR JR PATIENT Selected Encounter This section includes the information on record at [place] for the Encounter. Date/Time Encounter Type Encounter Description Reason Pro vider Source Aug 08, 2023 12:00 AM Outpatient Encounter ADMIN PAT ACTIVTIES (MASNONCT) E Encounter Template Text not used by [place] Plan of Treatment: Future Appointments (+ 6 months) and Future Tests (+/- 45 days) The Plan of Treatment section includes future care activities for the patient from all [place] treatmentfacilities. This section includes future appointments and future orders which are active, pending or scheduled. Future Appointments This section includes appointments that were scheduled to occur 6 months from the date of the Encounter, up to a maximum of 20 appointments. The data comes from all [facility] treatment facilities. Appointment Date/Time Appointment Type Appointme nt Facility Name Aug 12, 2023 10:30 AM AMBULATORY - NONE [facility] Aug 15, 2023 09:30 AM AMBULATORY - NONE [facility] Aug 20, 2023 01:00 PM AMBULATORY - SURGERY [facility] Aug 27, 2023 08:30 AM AMBULATORY - NONE [facility] Aug 30, 2023 10:01 AM [facility] Aug 30, 2023 02:00 PM AMBULATORY - NONE [facility] Sep 23, 2023 11:00 AM AMBULATORY - REHAB MEDICIN E [facility] Sep 23, 2023 01:00 PM AMBULATORY - REHAB MEDICIN E [facility] Sep 24, 2023 11:00 AM AMBULATORY - REHAB MEDICIN E [facility] Sep 25, 2023 11:00 AM AMBULATORY - REHAB MEDICIN E [facility] Oct 01, 2023 07:00 AM AMBULATORY - NONE [facility] Oct 01, 2023 12:30 PM AMBULATORY - NONE [facility] Oct 01, 2023 01:00 PM AMBULATORY - SURGERY [facility] Oct 04, 2023 02:30 PM AMBULATORY - REHAB MEDICIN E [facility] Oct 14, 2023 11:30 AM AMBULATORY - REHAB MEDICIN E [facility] Oct 25, 2023 11:30 AM AMBULATORY - REHAB MEDICIN E [facility] Oct 31, 2023 01:00 PM AMBULATORY - NONE [facility] Nov 01, 2023 02:00 PM AMB[facility]ATORY - NONE [facility] 2023 09:00 AM AMBULATORY - REHAB MEDICIN E [facility] Active, Pending, and Scheduled Orders This section includes a listing of several types of active, pending, and scheduled orders, including clinic medications orders, diagnostic test orders, procedure orders and consult orders; where the start date of the order is 45 days before the date of the Encounter or 45 days after the date of theEncounter. The data comes from all [facility]. Test Date/Time Test Type Test Details Facility Name Aug 13, 2023 09:18 AM Consult Order COMMUNITY CARE-CHIROPRACTIC [facility] [employer] [facility] Aug 30, 2023 02:56 PM Consult Order SLEEP [facility] OUTPT [facility] Lab Results: +/- 30 days of the encounter This section includes the Chemistry and Hematology Lab Results on record with [place] for the patient. Radiology Reports and Pathology Reports are provided separately, in subsequent sections. Lab Results This section contains the Chemistry/Hematology Results that were resulted 30 days before or 30 daysafter the date of the Encounter. Date/Time Source Result Type Result - Unit Interpretation Reference Range Comment Aug 27, 2023 08:20 AM [facility] LIPID PANEL,NON-FASTING Specimen Type: PLASMA No comment entered. Ordering Provider: CHRISTINA HAQUE CCA Report Released Date/Time: Feb 27, 2023 08:53 AM Reporting Lab: [facility] [id number] Performing Lab: [facility] [id number] CHOLESTEROL 177 <199 .HDL 49 >40 LDL CALCULATION 113 H <99 VLDL CALCULATION 15 <29 NON HDL CHOLESTEROL 128 <129 TRIG(NON FASTING) 77 <149 Aug 27, 2023 08:20 AM [facility] TESTOSTERONE Specimen Type: SERUM No comment entered. Ordering Provider: NISHA SILVER MA Report Released Date/Time: Apr 08, 2023 10:57 AM Reporting Lab: [facility] [id number] Performing Lab: [facility] [id number] TESTOSTERONE 1382 H [id number] Aug 27, 2023 08:20 AM [facility] CBC Specimen Type: BLOOD No comment entered. Ordering Provider: NISHA SILVER MA Report Released Date/Time: Apr 08, 2023 10:57 AM Reporting Lab: [facility] [id number] Performing Lab: [facility] [address] WBC 9.37 4.0-11.0 RBC 5.79 4.6-6.2 HGB 17.0 13.5-17.9 HCT 52.0 41-54 MCV 89.8 80-100 MCH 29.4 27-33 MCHC 32.7 32.0-37.5 PLT 202 150-400 MPV 10.4 7.4-10.4 RDW 14.5 11.5-14.5 Social History: Smoking Status (Most current) and Tobacco Use (All prior to encounter date) This section includes the most current, and the historical, smoking and tobacco- related health factors from the [place] facility where the Encounter took place. Current Smoking Status This section includes the most current smoking, or tobacco-related health factor, from the [place] facility where the Encounter took place. Date/Time Current Smoking Status Comment Shayne hernandezy Nov 20, 2016 09:03 AM LIFETIME NON-TOBACCO USER [facility] Tobacco Use History This section includes a history of the smoking, or tobacco-related health factors, that were collected on or before the date of the Encounter. The data comes from the [place] facility where the Encounter took place. Date/Time Smoking Status/Tobacco Use Comment F acility Jun 29, 2016 07:34 AM INPT NO TOBACCO USE IN LAST 30 D AYS [facility] Dec 12, 2015 12:47 PM LIFETIME NON-TOBACCO USER [facility] Dec 28, 2014 12:34 PM LIFETIME NON-TOBACCO USER [facility] Jul 08, 2012 07:40 AM LIFETIME NON-TOBACCO USER [facility] Encounter Notes: All associated encounter notes This section contains the clinical notes associated to the Encounter. Date/Time Encounter Note(s) Provider Source Aug 08, 2023 12:00 AM NONVA NOTE: LOCAL TITLE: PRIMARY CARE NONVA NOTE STANDARD TITLE: NONVA NOTE DATE OF NOTE: AUG 08, 2023 ENTRY DATE: SEP 17, 2023@09:12:10 AUTHOR: PEGGY JULIO EXP COSIGNER: URGENCY: STATUS: COMPLETED [facility] - Scanned Document This note contains attached PRIMARY CARE scanned document(s) received from an outside facility. Open [facility] Display to review the document(s). /mindy/ PEGGY JULIO [employer] - HIT Signed: 09/17/2023 09:12 PEGGY JULIO [facility]
--- OUTSIDE RECORDS SUMMARY | 2023-10-11 15:53 | XMS_ITS | Encounter Summary ---
Author Name Department of Vetera Affairs Organization Department of [facility] Affairs Address [address] [place] [address] Support Name Relationship Address Phone MELQUIADES TAYLOR Next of Kin [address] [place] [address] BRANDON MELQUIADES Vicky Emergency Contact [address] [place] [address] Insurance Providers: All historical and [...] PART A January 01, 2016 PART A [id number] [phone] DUSTIN TAYLOR JR PATIENT MEDICARE (WNR) MEDICARE (M) PART B January 01, 2016 PART B [id number] [phone] DUSTIN TAYLOR JR PATIENT Selected Encounter This section includes the information on record at [place] for the Encounter. Date/Time Encounter Type Encounter Description Reason Provider Source Aug 30, 2023 02:00 PM MTMS BY PHARM ADDL 15 MIN TELEPHONE PRIMARY CARE ICD-10-CM E29.1 Testicular hypofunction WILLIE GREEN Uriel Encounter Template Text not used by [facility] Assessments - Encounter Diagnoses This section includes the primary and secondary diagnoses documented for the Encounter. Date/Time Primary/Secondary Diagnosis Diagnosis Name Provider Source Aug 30, 2023 02:00 PM PRIMARY Testicular hypofunction LEANNE GREEN [facility] Plan of Treatment: Future Appointments (+ 6 months) and Future Tests (+/- 45 days) The Plan of Treatment section includes future care activities for the patient [facility] [place] [facility] This section includes future appointments and future orders which are active, pending or scheduled. Future Appointments This section includes appointments that were scheduled to occur 6 months from the date of the Encounter, up to a maximum of 20 appointments. The data comes from all [facility]. Appointment Date/Time Appointment Type Appointme nt Facility Name Sep 23, 2023 11:00 AM AMBULATORY - REHAB MEDICIN E [facility] Sep 23, 2023 01:00 PM AMBULATORY - REHAB MEDICIN E [facility] Sep 24, 2023 11:00 AM AMBULATORY - REHAB MEDICIN E [facility] Sep 25, 2023 11:00 AM AMBULATORY - REHAB MEDICIN E [facility] Oct 01, 2023 07:00 AM [facility]ONE [facility] Oct 01, 2023 12:30 PM [facility] NONE [place] Oct 01, 2023 01:00 PM AMBULATORY - SURGERY [facility] Oct 04, 2023 02:30 PM AMBULATORY - REHAB MEDICIN E [facility] Oct 14, 2023 11:30 AM AMBULATORY - REHAB MEDICIN E [facility] Oct 25, 2023 11:30 AM AMBULATORY - REHAB MEDICIN E [facility] Oct 31, 2023 01:00 PM AMBULATORY - NONE [facility] Nov 01, 2023 02:00 PM AMBULATORY - NONE [facility] 2023 09:00 AM AMBULATORY - REHAB MEDICIN E [facility] Feb 26, 2024 01:30 PM AMBULATORY [...] of theEncounter. The data comes from all [facility]. Test Date/Time Test Type Test Details Facility Name Aug 13, 2023 09:18 AM Consult Order COMMUNITY CARE-CHIROPRACTIC Cons Telephone [facility] Aug 30, 2023 02:56 PM Consult Order SLEEP APNE A CLINIC OUTPT Cons Telephone [facility] Lab Results: +/- 30 days of the encounter This section includes the Chemistry and Hematology Lab Results on record with [place] for the patient. Radiology Reports and Pathology Reports are provided separately, in subsequent sections. Lab Results This section contains the Chemistry/Hematology Results that were resulted 30 days before or 30 daysafter the date of the Encounter. Date/Time Source Result Type Result - Unit Interpretation Reference Range Comment Aug 27, 2023 08:20 AM [facility] LIPID PANEL,NON-FASTING Specimen Type: PLASMA No comment entered. Ordering Provider: CHRISTINA HAQUE CCA Report Released Date/Time: Feb 27, 2023 08:53 AM Reporting Lab: [facility] [id number] Performing Lab: [facility] [id number] CHOLESTEROL 177 <199 .HDL 49 >40 LDL CALCULATION 113 H <99 VLDL CALCULATION 15 <29 NON HDL CHOLESTEROL 128 <129 TRIG(NON FASTING) 77 <149 Aug 27, 2023 08:20 AM [facility] TESTOSTERONE Specimen Type: SERUM No comment entered. Ordering Provider: NISHA SILVER MA Report Released Date/Time: Apr 08, 2023 10:57 AM Reporting Lab: [facility] [id number] Performing Lab: [facility] [id number] TESTOSTERONE 1382 H [id number] Aug 27, 2023 08:20 AM [facility] CBC Specimen Type: BLOOD No comment entered. Ordering Provider: NISHA SILVER MA Report Released Date/Time: Apr 08, 2023 10:57 AM Reporting Lab: [facility] [phone] Performing Lab: [facility] [id number] WBC 9.37 4.0-11.0 RBC 5.79 4.6-6.2 HGB 17.0 13.5-17.9 HCT 52.0 41-54 MCV 89.8 80-100 MCH 29.4 27-33 MCHC 32.7 32.0-37.5 PLT 202 150-400 MPV 10.4 7.4-10.4 RDW 14.5 11.5-14.5 Social History: Smoking Status (Most current) and Tobacco Use (All prior to encounter date) This section includes the most current, and the historical, smoking and tobacco- related health factors from the [place] facility where the Encounter took place. Current Smoking Status This section includes the most current smoking, or tobacco-related health factor, from the [place] facility where the Encounter took place. Date/Time Current Smoking Status Comment Shayne ity Feb 26, 2023 01:30 PM VA-TOBACCO NEVER USED [facility] Tobacco Use History This section includes a history of the smoking, or tobacco-related health factors, that were collected on or before the date of the Encounter. The data comes from the [place] facility where the Encounter took place. Date/Time Smoking Status/Tobacco Use Comment F acility Feb 22, 2022 01:00 PM VA-TOBACCO NEVER USED [facility] Mar 20, 2021 11:00 AM VA-TOBACCO NEVER USED [facility] Feb 11, 2020 10:37 AM VA-TOBACCO NEVER USED [facility] Feb 24, 2019 02:07 PM VA-TOBACCO NEVER USED [facility] Feb 17, 2018 04:20 PM LIFETIME NON-TOBACCO USER [facility] Encounter Notes: All associated encounter notes This section contains the clinical notes associated to the Encounter. Date/Time Encounter Note(s) Provider Source Aug 30, 2023 02:00 PM PHARMACY NOTE: LOCAL TITLE: PHARMACOTHERAPY-CLINICAL PHARMACY NOTE STANDARD TITLE: PHARMACY NOTE DATE OF NOTE: AUG 30, 2023@14:00 ENTRY DATE: AUG 30, 2023@13:54:26 AUTHOR: LEANNE GREEN COSIGNER: URGENCY: STATUS: COMPLETED DUSTIN TAYLOR JR is a 52 YO MALE [facility] for medication management, contacted by phone. patient goes Kiran HPI: Sprakers with hypogonadism, MDD, SHERINE, OA, ZANE w/o CPAP use, chronic pain, insomnia, ED, prediabetes and allergic rhinitis. Last assessed by covering PACT CPP on 04/08/2023, at which time Sprakers was changed back to the injectable testosterone from testosterone gel. SUBJECTIVE: answers the phone with no acute complaints. States he is doing well. Notes I don't know if it's working as well as it used too... my sleep has gotten worse and I don't have the energy like I used to have. Discussed sleep apnea and how untreated sleep apnea can contribute to insomnia/trouble sleeping and low energy as well as the fact that testosterone can make those symptoms worse if ZANE isn't treated. Sprakers agreed to a new sleep consult to discuss alternate options for treating ZANE. Discussed his recent lab values and he goes that is my fault, I accidentally gave myself a dose on 08/19 and then again on 08/20. Current hypogonadism symptoms : low energy Appropriate testosterone injection technique/application of gel: yes Appropriate timing of lab draw midway between injections: yes - last injection date was 08/19 and 08/20 ROS: (?) testosterone deficiency symptoms (decreased libido/energy/mood, ED, body hair loss, hot flashes/sweats) (-) testosterone side effects (s/sx VTE, weight gain, fluid retention, increased BP) Adherence to medications: DENIES missed doses; accidentally gave 2 testosterone injections last week OBJECTIVE: ALLERGIES/ADR: CYCLOBENZAPRINE (May 03, 2020) METHOCARBAMOL (May 03, 2020) MEDICATION RECONCILIATION: Active and Recently Outpatient Medications (excluding Supplies): Active Outpatient Medications Status ========= 1) SILDENAFIL CITRATE 100MG TAB TAKE ONE-HALF TABLET BY ACTIVE MOUTH NEEDED FOR ERECTILE DYSFUNCTION 1 HOUR BEFORE ANTICIPATED SEXUAL ACTIVITY * 2) TESTOSTERONE CYP 200MG/ML 1ML IN OIL INJECT 1ML ACTIVE (200MG) INTRAMUSCULAR EVERY 2 WEEKS FOR HYPOGONADISM (200MG IS 1ML) -DISCARD VIAL AFTER WITHDRAWING A SINGLE DOSE - confirms dose, typically every other Saturday administration Active Non-VA Medications Status ========= 1) Non-VA BIOTIN CAP,ORAL COLLAGEN/ MOUTH EVERY DAY ACTIVE 2) Non-VA L-ARGININE 500MG TAB 1000MG MOUTH EVERY DAY ACTIVE 3) Non-VA MILK THISTLE CAP/TAB 175MG MOUTH EVERY DAY ACTIVE 4) Non-VA MULTIVITAMIN CAP/TAB 1 TABLET MOUTH EVERY DAY ACTIVE 5) Non-VA NON VA MED NOT LISTED MISCELLANEOUS ACTIVE L-GLUTAMINE 5G MOUTH EVERY DAY Vitals: Temperature: 98.4 F [36.9 C] (03/11/2023 10:40) Blood Pressure: 124/82 (03/11/2023 10:40) Pulse: 93 (03/11/2023 10:40) Respiration: 17 (03/11/2023 10:40) Pain: 3 (03/11/2023 10:40) Height: 68.5 in [174.0 cm] (02/26/2023 13:42) Weight: 194.9 lb [88.41 kg] (03/11/2023 10:40) BMI: 29.3 LABS: TESTOSTERONE 1382 H (08/27/23) LUTEINIZING HORMONE____ FSH____ PROLACTIN____ Hgb & Hct Panel: The OBJECT HGB & HCT PANEL is INACTIVE...Contact IRM. PSA Last 3 Years: PSA - NONE FOUND Basic Metabolic Panel: SODIUM 140 (02/26/23) POTASSIUM 4.4 (02/26/23) CREATININE 1.4 H (02/26/23) UREA NITROGEN 20 (02/26/23) GLUCOSE 80 (02/26/23) CO2 27 (02/26/23) CHLORIDE 105 (02/26/23) EGFR (04/05) 03/11/20 @ 0924 71 CREATININE EGFR (CKD-EPI) 02/26/23 @ 1428 60 MAGNESIUM 2.1 (02/26/23) Creatinine & eGFR trends: Collection DT Specimen Test Name Result Units Ref Range 02/26/2023 14:28 PLASMA CREATININE 1.4 H mg/dL 0.7 - 1.2 02/22/2022 14:01 PLASMA CREATININE 1.2 mg/dL 0.7 - 1.2 03/11/2020 09:24 PLASMA CREATININE 1.1 mg/dL 0.7 - 1.2 02/26/2023 14:28 PLASMA .CREAT EGFR(CKD-E 60 Ref: >=60 02/22/2022 14:01 PLASMA .CREAT EGFR(CKD-E 73 Ref: >=60 Lipid Profile: CHOLESTEROL 177 (08/27/23) MEASURED LDL____ LDL CALCULATION 113 H (08/27/23) HDL 49 (08/27/23) TRIGLYCERIDE____ LFTs: SGOT 28 (02/26/23) SGPT 30 (02/26/23) Thyroid: TSH 0.49 (02/26/23) CBC: Collection DT Spec WBC HGB HCT PLT MCV NEUT LYMPHS 08/27/2023 08:20 BLOOD 9.37 17.0 52.0 202 89.8 02/26/2023 14:28 BLOOD 9.74 16.1 47.8 222 91.2 51.4 35.8 ASSESSMENT: # Hypogonadism (goal is improved hypogonadal symptoms while maintaining serum testosterone level mid-normal range for a eugonadal young male (approximately 500-700 ng/dL)); most recent testosterone level is well above goal, likely due to doubled dose. Tolerating regimen without ADR. Unclear if Sprakers is experiencing hypogonadal symptoms vs. symptoms from untreated ZANE. would benefit from treatment of ZANE; sleep consult placed to discuss alternate treatment options as Sprakers cannot tolerate CPAP. At this time will hold the next dose of testosterone and go to weekly injections after that. Continued monitoring is warranted. May consider referral back to endocrine in the future, if warranted. PLAN: # Testosterone: - CHANGE testosterone 100 mg every week starting 09/16/2023 # Disease-Specific Med Rec: Completed today # Labs: repeat testosterone, CBC prior to next appt - Educated vet on indication/risks/benefits of new/changed medication. - Education provided on therapeutic nonpharmacologic management to achieve goals. - Vet advised of recent labs. - Sprakers verbalized understanding to all plans discussed today. Questions were answered to vet's satisfaction. Time spent: 24 minutes RTC: - K [facility] on 10/31/2023 at 1pm for testosterone and [facility] - [facility] PACT PHONE PHARM 1 on 11/01/2023 at 2pm for testosterone follow-up /mindy/ LEANNE GREEN CLINICAL DISPENSING OPTICIAN APPRENTICE Signed: 08/30/2023 15:26 LEANNE GREEN OC
--- OUTSIDE RECORDS SUMMARY | 2023-10-11 15:54 | XMS_ITS | Encounter Summary ---
Author Name Department of Vetera Affairs Organization [facility] of [facility] Address [address] [place] [address] Support Name Relationship Address Phone MELQUIADES TAYLOR Next of Kin [address] [place] [address] MELQUIADES TAYLOR Emergency Contact [address] [place] [address] Insurance Providers: All historical and [...] PART A January 01, 2016 PART A [id number] [phone] DUSTIN TAYLOR JR PATIENT MEDICARE (WNR) MEDICARE (M) PART B January 01, 2016 PART B [id number] DUSTIN TAYLOR JR PATIENT Selected Encounter This section includes the information on record at [place] for the Encounter. Date/Time Encounter Type Encounter Description Reason Pro vider Source Sep 25, 2023 11:00 AM Outpatient Encounter PHYSICAL THERAPY IHE Encounter Template Text not used by [place] Plan of Treatment: Future Appointments (+ 6 months) and Future Tests (+/- 45 days) The Plan of Treatment section includes future care activities for the patient from all [place] treatmentfacilities. This section includes future appointments and future orders which are active, pending or scheduled. Future Appointments This section includes appointments that were scheduled to occur 6 months from the date of the Encounter, up to a maximum of 20 appointments. The data comes from all [place] treatment facilities. Appointment Date/Time Appointment Type Appointme nt Facility Name Oct 01, 2023 07:00 AM [facility]ORY - NONE [facility] Oct 01, 2023 12:30 PM AMBUL[facility]ORY - NONE [place] [facility] Oct 01, 2023 01:00 PM AMBULATORY - SURGERY [facility] Oct 04, 2023 02:30 PM AMBULATORY - REHAB MEDICIN E [facility] Oct 14, 2023 11:30 AM AMBULATORY - REHAB MEDICIN E [facility] Oct 25, 2023 11:30 AM AMBULATORY - REHAB MEDICIN E [facility] Oct 31, 2023 01:00 PM AMBULATORY - NONE [facility] Nov 01, 2023 02:00 PM AMBULATORY - NONE [facility] 2023 09:00 AM AMBULATORY - REHAB MEDICIN E [facility] Feb 26, 2024 01:30 PM AMBULATORY [...] of theEncounter. The data comes from all [place] treatment facilities. Test Date/Time Test Type Test Details Facility Name Aug 13, 2023 09:18 AM Consult Order COMMUNITY CARE-CHIROPRACTIC Cons Gear [facility]ber[facility] Choice [facility] Aug 30, 2023 02:56 PM Consult Order SLEEP APNE A CLINIC OUTPT Cons Gear [facility] Oct 31, 2023 12:00 AM Laboratory - Chemi stry Order TESTOSTERONE SERUM SP ONCE [facility] Oct 31, 2023 12:00 AM Laboratory - Chemi stry Order CBC BLOOD SP ONCE [facility] Lab Results: +/- 30 days of the encounter This section includes the Chemistry and Hematology Lab Results on record with [place] for the patient. Radiology Reports and Pathology Reports are provided separately, in subsequent sections. Lab Results This section contains the Chemistry/Hematology Results that were resulted 30 days before or 30 daysafter the date of the Encounter. Date/Time Source Result Type Result - Unit Interpretation Reference Range Comment Aug 27, 2023 08:20 AM [facility] LIPID PANEL,NON-FASTING Specimen Type: PLASMA No comment entered. Ordering Provider: CHRISTINA HAQUE CCA Report Released Date/Time: Feb 27, 2023 08:53 AM Reporting Lab: [facility] [id number] Performing Lab: [facility] [address] CHOLESTEROL 177 <199 .HDL 49 >40 LDL CALCULATION 113 H <99 VLDL CALCULATION 15 <29 NON HDL CHOLESTEROL 128 <129 TRIG(NON FASTING) 77 <149 Aug 27, 2023 08:20 AM [facility] TESTOSTERONE Specimen Type: SERUM No comment entered. Ordering Provider: NISHA SILVER MA Report Released Date/Time: Apr 08, 2023 10:57 AM Reporting Lab: [facility] [id number] Performing Lab: [facility] [address] TESTOSTERONE 1382 H [id number] Aug 27, 2023 08:20 AM [facility] CBC Specimen Type: BLOOD No comment entered. Ordering Provider: NISHA SILVER MA Report Released Date/Time: Apr 08, 2023 10:57 AM Reporting Lab: [facility] [id number] Performing Lab: [facility] [address] WBC 9.37 4.0-11.0 RBC 5.79 4.6-6.2 HGB 17.0 13.5-17.9 HCT 52.0 41-54 MCV 89.8 80-100 MCH 29.4 27-33 MCHC 32.7 32.0-37.5 PLT 202 150-400 MPV 10.4 7.4-10.4 RDW 14.5 11.5-14.5 Social History: Smoking Status (Most current) and Tobacco Use (All prior to encounter date) This section includes the most current, and the historical, smoking and tobacco- related health factors from the [facility] where the Encounter took place. Current Smoking Status This section includes the most current smoking, or tobacco-related health factor, from the [place] facility where the Encounter took place. Date/Time Current Smoking Status Comment Shayne alston Nov 20, 2016 09:03 AM LIFETIME NON-TOBACCO USER [facility] Tobacco Use History This section includes a history of the smoking, or tobacco-related health factors, that were collected on or before the date of the Encounter. The data comes from the [place] facility where the Encounter took place. Date/Time Smoking Status/Tobacco Use Comment F acility Jun 29, 2016 07:34 AM INPT NO TOBACCO USE IN LAST 30 D AYS [facility] Dec 12, 2015 12:47 PM LIFETIME NON-TOBACCO USER [facility] Dec 28, 2014 12:34 PM LIFETIME NON-TOBACCO USER [facility] Jul 08, 2012 07:40 AM LIFETIME NON-TOBACCO USER [facility] Radiology Reports: +/- 30 days of [...] 4V(AP,Y VIEW, GRASHEY & AXILLARY): DUSTIN TAYLOR [id number] -1970 M Exm Date: OCT 01, 2023@12:22 Req Phys: BAYRON PHAM MD Pat Loc: [facility] MD PHAM (Req'g Loc Img Loc: MAIN X-RAY Service: Unknown (Case [id number] COMPLETE) SHOULDER LEFT 4V(AP,Y VIEW, GRASH(RAD Detailed) CPT:97621 Proc Modifiers : LEFT Reason for Study: Pain Clinical History: [facility] IS NOT under investigation for COVID-19 or is COVID-19 negative Pain Responsible provider name and phone number to notify for critical findings if other than user placing the order and pager listed below: User placing orders pager: LAST CREATININE 1.4 H (02/26/23) Report Status: Verified Date Reported: OCT 01, 2023 Date Verified: OCT 01, 2023 Dipper Operator E-Sig:/ES/SARA BROWNE MD Report: DATE/TIME REGISTERED: 10/01/2023 [...] Primary Interpreting Staff: SARA BROWNE MD, RADIOLOGIST (Dipper Operator) /[facility] Oct 01, 2023 06:51 AM MRI SHOULDER LEFT (P): DUSTIN TAYLOR [id number] -1970 M Exm Date: OCT 01, 2023@06:51 Req Phys: BAYRON PHAM MD Pat Loc: [facility] (Req'g Loc Img Loc: MRI IMAGING Service: Unknown (Case [id number] COMPLETE) MRI SHOULDER LEFT W/O CONTRAST (MRI Detailed) CPT:29926 Reason for Study: Eval rotator cuff Clinical [...] 01, 2023 Date Verified: OCT 01, 2023 Dipper Operator E-Sig:/ES/NEGRITA HART MD Report: Exam: MRI SHOULDER [...] Primary Interpreting Staff: NEGRITA HART MD, RADIOLOGIST (Dipper Operator) /NEGRITA MATSON [facility] Encounter Notes: All associated encounter notes This section contains the clinical notes associated to the Encounter. Date/Time Encounter Note(s) Provider Source Sep 25, 2023 11:21 AM NO SHOW NOTE: LOCAL TITLE: NO SHOW/CANCELLATION CLINIC NOTE STANDARD TITLE: NO SHOW NOTE DATE OF NOTE: SEP 25, 2023@11:21 ENTRY DATE: SEP 25, 2023@11:21:42 AUTHOR: ARIANA DE LA O EXP COSIGNER: URGENCY: STATUS: COMPLETED [facility] not seen for scheduled appointment due to: No Show: Third no show in 3 days. Appointment Rescheduled: Please review patient chart and medications for renewal needs (if appropriate). /mindy/ ARIANA DE LA O DPT PHYSICAL THERAPIST Signed: 09/25/2023 11:22 ARIANA DE LA O [facility]
--- OUTSIDE RECORDS SUMMARY | 2023-10-11 15:54 | XMS_ITS | Encounter Summary ---
Author Name Department of Vetera Affairs Organization [employer] of [employer] Affairs Address [address] [place] [address] Support Name Relationship Address Phone BRANDONGILMAMELQUIADES L Next of Kin [address] [place] [address] MELQUIADES TAYLOR Emergency Contact [address] [place] [address] Insurance Providers: All historical and [...] PART A January 01, 2016 PART A [id number] DUSTIN TAYLOR JR PATIENT MEDICARE (WNR) MEDICARE (M) PART B January 01, 2016 PART B [id number] DUTSIN TAYLOR JR PATIENT Selected Encounter This section includes the information on record at [place] for the Encounter. 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 Date/Time Primary/Secondary Diagnosis Diagnosis Name Provider Source Sep 23, 2023 01:15 PM PRIMARY Chondromalacia, right shoulder MARIBEL SANTIZO [facility] Plan of Treatment: Future Appointments (+ 6 months) and Future Tests (+/- 45 days) The Plan of Treatment section includes future care activities for the [facility] This section includes future appointments and future orders which are active, pending or scheduled. Future Appointments This section includes appointments that were scheduled to occur 6 months from the date of the Encounter, up to a maximum of 20 appointments. The data comes from all [facility]. Appointment Date/Time Appointment Type Appointme nt Facility Name Sep 24, 2023 11:00 AM AMBULATORY - REHAB MEDICIN E [facility] Sep 25, 2023 11:00 AM AMBULATORY - REHAB MEDICIN E [facility] Oct 01, 2023 07:00 AM [place] [facility] Oct 01, 2023 12:30 PM [place] [facility] Oct 01, 2023 01:00 PM AMBULATORY [...] 31, 2023 01:00 PM AMBULATORY - NONE [facility] Nov 01, 2023 02:00 PM AMBULATORY - NONE [facility] 2023 09:00 AM AMBULATORY - REHAB MEDICIN [facility] Feb 26, 2024 01:30 PM AMBULATORY - MEDICINE [facility] Active, Pending, and Scheduled Orders This section includes a listing of several types of active, pending, and scheduled orders, including clinic medications orders, diagnostic test orders, procedure orders and consult orders; where the start date of the order is 45 days before the date of the Encounter or 45 days after the date of theEncounter. The data comes from all [facility]. Test Date/Time Test Type Test Details Facility Name Aug 13, 2023 09:18 AM Consult Order COMMUNITY CARE-CHIROPRACTIC Cons [place] [facility] Aug 30, 2023 02:56 PM Consult Order SLEEP APNE A CLINIC OUTPT [facility] [place] [facility] Oct 31, 2023 12:00 AM Laboratory - Chemi stry Order TESTOSTERONE SERUM SP ONCE [facility] Oct 31, 2023 12:00 AM Laboratory - Chemi stry Order CBC BLOOD SP ONCE [facility] Lab Results: +/- 30 days of the encounter This section includes the Chemistry and Hematology Lab Results on record with [place] for the patient. Radiology Reports and Pathology Reports are provided separately, in subsequent sections. Lab Results This section contains the Chemistry/Hematology Results that were resulted 30 days before or 30 daysafter the date of the Encounter. Date/Time Source Result Type Result - Unit Interpretation Reference Range Comment Aug 27, 2023 08:20 AM [facility] LIPID PANEL,NON-FASTING Specimen Type: PLASMA No comment entered. Ordering Provider: CHRISTINA HAQUE CCA Report Released Date/Time: Feb 27, 2023 08:53 AM Reporting Lab: [facility] [id number] Performing Lab: [facility] [address] CHOLESTEROL 177 <199 .HDL 49 >40 LDL CALCULATION 113 H <99 VLDL CALCULATION 15 <29 NON HDL CHOLESTEROL 128 <129 TRIG(NON FASTING) 77 <149 Aug 27, 2023 08:[address] [facility] TESTOSTERONE Specimen Type: SERUM No comment entered. Ordering Provider: NISHA SILVER MA Report Released Date/Time: Apr 08, 2023 10:57 AM Reporting Lab: [facility] [id number] Performing Lab: [facility] [address] TESTOSTERONE 1382 H [id number] Aug 27, 2023 08:[address] [facility] CBC Specimen Type: BLOOD No comment entered. Ordering Provider: NISHA SILVER MA Report Released Date/Time: Apr 08, 2023 10:57 AM Reporting Lab: [facility] [id number] Performing Lab: [facility] [address] WBC 9.37 4.0-11.0 RBC 5.79 4.6-6.2 HGB 17.0 13.5-17.9 HCT 52.0 41-54 MCV 89.8 80-100 MCH 29.4 27-33 MCHC 32.7 32.0-37.5 PLT 202 150-400 MPV 10.4 7.4-10.4 RDW 14.5 11.5-14.5 Social History: Smoking Status (Most current) and Tobacco Use (All prior to encounter date) This section includes the most current, and the historical, smoking and tobacco- related health factors from the [place] facility where the Encounter took place. Current [...] the Encounter. The data comes from the [facility] where the Encounter took place. [...] NON-TOBACCO USER [facility] Radiology Reports: +/- 30 days of the [...] the Encounter. The data comes from all [place] treatment facilities. Date/Time Radiology Report Provider Source Oct 01, 2023 12:22 PM SHOULDER LEFT 4V(AP,Y VIEW, GRASHEY & AXILLARY): DUSTIN TAYLOR [id number] -1970 M Ex Date: OCT 01, 2023@12:22 Req Phys: BAYRON PHAM MD Pat Loc: [facility] MD PHAM (Req'g Loc Img Loc: MAIN X-RAY Service: Unknown (Case [id number] COMPLETE) SHOULDER LEFT 4V(AP,Y VIEW, GRASH(RAD Detailed) CPT:20110 Proc Modifiers : LEFT Reason for Study: Pain Clinical History: [place] IS NOT under investigation for COVID-19 or is COVID-19 negative Pain Responsible provider name and phone number to notify for critical findings if other than user placing the order and pager listed below: User placing orders pager: LAST CREATININE 1.4 H (02/26/23) Report Status: Verified Date Reported: OCT 01, 2023 Date Verified: OCT 01, 2023 Db2 Systems Programmer E-Sig:/MINDY/SARA BROWNE MD Report: DATE/TIME REGISTERED: 10/01/2023 12:22 [...] Primary Interpreting Staff: SARA BROWNE MD, RADIOLOGIST (Db2 Systems Programmer) /[facility] Oct 01, 2023 06:51 AM MRI SHOULDER LEFT (P): DUSTIN TAYLOR [id number] -1970 M Exm Date: OCT 01, 2023@06:51 Req Phys: BAYRON PHAM MD Pat Loc: [facility] MD PHAM (Req'g Loc Img Loc: MRI IMAGING Service: Unknown (Case [id number] COMPLETE) MRI SHOULDER LEFT W/O CONTRAST (MRI Detailed) CPT:90782 Reason for Study: Eval rotator cuff Clinical [...] 01, 2023 Date Verified: OCT 01, 2023 Db2 Systems Programmer E-Sig:/MINDY/NEGRITA HART MD Report: Exam: MRI SHOULDER LEFT [...] Acromioclavicular joint space is widened, similar to 2021 MRI arthrogram. There is an acromioclavicular joint [...] Primary Interpreting Staff: NEGRITA HART MD, RADIOLOGIST (Db2 Systems Programmer) /[facility] NEGRITA HART [facility] Encounter Notes: All associated encounter notes This section contains the clinical notes associated to the Encounter. Date/Time Encounter Note(s) Provider Source Sep 23, 2023 12:56 PM PHYSICAL MEDICINE REHAB OUTPATIENT NOTE: LOCAL TITLE: REHAB MEDICINE CLINIC NOTE STANDARD TITLE: PHYSICAL MEDICINE REHAB OUTPATIENT NOTE DATE OF NOTE: SEP 23, 2023@12:56 ENTRY DATE: SEP 23, 2023@12:56:49 AUTHOR: HANNAH SANTIZO EXP COSIGNER: URGENCY: STATUS: COMPLETED Visit conducted by synchronous telehealth. verbal consent obtained. Location/emergency number confirmed. Environment surveyed and all participants identified. Virtual conference room locked. The following were verified with the . - Identification using name and last 4 of SSN: [facility] - Address (current physical location): [address] [place] [address] - Phone number: [phone] - Emergency Contact: No - Other participants:None 52 y/o seen in [facility] clinic to follow-up PRP to right glenohumeral joint on 03/11/23. He reports 1 week of increased pain, then shoulder started to feel really good. He is still pleased with the results of the PRP to the deep shoulder pain. He is starting to have more pain over the top of his shoulder as he moves the arm up. His current biggest issue is left shoulder pain and he is seeing ortho, has MRI scheduled and has PT ordered. Discussed with that he likely has pain again from rotator cuff that was seen on MRI in 2019. Recommend start with PT. I will add note to PT to see if they can address right shoulder along with left. Will then have him follow-up in clinic in 2-3 months. is in agreement with the above plan. /mindy/ HANNAH SANTIZO DO PHYSICIAN, PM&R Signed: 09/23/2023 13:[address] [facility]
--- OUTSIDE RECORDS SUMMARY | 2023-10-11 15:54 | XMS_ITS | Encounter Summary ---
Author Name Department of Vetera Affairs Organization [facility] Address [address] [place] [address] Support Name Relationship Address Phone MELQUIADES TAYLOR Next of Kin [address] [place] [address] MELQUIADES TAYLOR Emergency Contact [address] [place] [address] Insurance Providers: All historical and [...] PART A January 01, 2016 PART A [id number] [phone] DUSTIN TAYLOR JR PATIENT MEDICARE (WNR) MEDICARE (M) PART B January 01, 2016 PART B [id number] DUSTIN TAYLOR JR PATIENT Selected Encounter This section includes the information on record at [place] for the Encounter. Date/Time Encounter Type Encounter Description Reason Pro vider Source Sep 24, 2023 11:00 AM Outpatient Encounter PHYSICAL THERAPY IHE Encounter Template Text not used by [place] Plan of Treatment: Future Appointments (+ 6 months) and Future Tests (+/- 45 days) The Plan of Treatment section includes future care activities for the patient from all [place] treatmentfacilities. This section includes future appointments and future orders which are active, pending or scheduled. Future Appointments This section includes appointments that were scheduled to occur 6 months from the date of the Encounter, up to a maximum of 20 appointments. The data comes from all [place] treatment facilities. Appointment Date/Time Appointment Type Appointme nt Facility Name Sep 25, 2023 11:00 AM AMBULATORY - REHAB MEDICIN E [facility] Oct 01, 2023 07:00 AM [place] [facility] Oct 01, 2023 12:30 PM [place] [facility] Oct 01, 2023 01:00 PM [place] [facility] Oct 04, 2023 02:30 PM AMBULATORY - REHAB MEDICIN E [facility] Oct 14, 2023 11:30 AM AMBULATORY - REHAB MEDICIN E [facility] Oct 25, 2023 11:30 AM AMBULATORY - REHAB MEDICIN E [facility] Oct 31, 2023 01:00 PM AMBULATORY - NONE [facility] Nov 01, 2023 02:00 PM AMBULATORY - NONE [facility] 2023 09:00 AM AMBULATORY - REHAB MEDICIN E [facility] Feb 26, 2024 01:30 PM AMBULATORY - [...] of theEncounter. The data comes from all [place] treatment facilities. Test Date/Time Test Type Test Details Facility Name Aug 13, 2023 09:18 AM Consult Order COMMUNITY CARE-CHIROPRACTIC Cons [employer] [facility] Aug 30, 2023 02:56 PM Consult Order SLEEP APNE A CLINIC OUTPT [facility] Oct 31, 2023 12:00 AM Laboratory - Chemi stry Order TESTOSTERONE SERUM SP ONCE [facility] Oct 31, 2023 12:00 AM Laboratory - Chemi stry Order CBC BLOOD SP ONCE [facility] Lab Results: +/- 30 days of [...] Range Comment Aug 27, 2023 08:20 AM [facility] LIPID PANEL,NON-FASTING Specimen Type: PLASMA No comment entered. Ordering Provider: CHRISTINA HAQUE CCA Report Released Date/Time: Feb 27, 2023 08:53 AM Reporting Lab: [facility] [id number] Performing Lab: [facility] [address] CHOLESTEROL 177 <199 .HDL 49 >40 LDL CALCULATION 113 H <99 VLDL CALCULATION 15 <29 NON HDL CHOLESTEROL 128 <129 TRIG(NON FASTING) 77 <149 Aug 27, 2023 08:20 AM [facility] TESTOSTERONE Specimen Type: SERUM No comment entered. Ordering Provider: NISHA SILVER MA Report Released Date/Time: Apr 08, 2023 10:57 AM Reporting Lab: [facility] [address] Performing Lab: [facility] [address] TESTOSTERONE 1382 H [id number] Aug 27, 2023 08:20 AM [facility] CBC Specimen Type: BLOOD No comment entered. Ordering Provider: NISHA SILVER MA Report Released Date/Time: Apr 08, 2023 10:57 AM Reporting Lab: [facility] [address] Performing Lab: [facility] [address] WBC 9.37 4.0-11.0 RBC 5.79 4.6-6.2 HGB [...] 20, 2016 09:03 AM LIFETIME NON-TOBACCO USER [facility] Tobacco Use History This section includes a history of the smoking, or tobacco-related health factors, that were collected on or before the date of the Encounter. The data comes from the [place] facility where the Encounter took place. Date/Time Smoking Status/Tobacco Use Comment F acility Jun 29, 2016 07:34 AM INPT NO TOBACCO USE IN LAST 30 D AYS [facility] Dec 12, 2015 12:47 PM LIFETIME NON-TOBACCO USER [facility] Dec 28, 2014 12:34 PM LIFETIME NON-TOBACCO USER [facility] Jul 08, 2012 07:40 AM LIFETIME NON-TOBACCO USER [facility] Radiology Reports: +/- 30 days of the [...] the Encounter. The data comes from all [place] treatment facilities. Date/Time Radiology Report Provider Source Oct 01, 2023 12:22 PM SHOULDER LEFT 4V(AP,Y VIEW, GRASHEY & AXILLARY): DUSTIN TAYLOR [id number] -1970 M Exm Date: OCT 01, 2023@12:22 Req Phys: BAYRON PHAM MD Pat Loc: [facility] MD PHAM (Req'g Loc Img Loc: MAIN X-RAY Service: Unknown (Case [id number] COMPLETE) SHOULDER LEFT 4V(AP,Y VIEW, GRASH(RAD Detailed) CPT:58034 Proc Modifiers : LEFT Reason for Study: Pain Clinical History: [place] IS NOT under investigation for COVID-19 or is COVID-19 negative Pain Responsible provider name and phone number to notify for critical findings if other than user placing the order and pager listed below: User placing orders pager: LAST CREATININE 1.4 H (02/26/23) Report Status: Verified Date Reported: OCT 01, 2023 Date Verified: OCT 01, 2023 Flange Machine Operator E-Sig:/ES/SARA BROWNE MD Report: DATE/TIME REGISTERED: [...] Primary Interpreting Staff: SARA BROWNE MD, RADIOLOGIST (Flange Machine Operator) /[facility] Oct 01, 2023 06:51 AM MRI SHOULDER LEFT (P): DUSTIN TAYLOR [id number] -1970 M Exm Date: OCT 01, 2023@06:51 Req Phys: BAYRON PHAM MD Pat Loc: [facility] MD PHAM (Req'g Loc Img Loc: MRI IMAGING Service: Unknown (Case [id number] COMPLETE) MRI SHOULDER LEFT W/O CONTRAST (MRI Detailed) CPT:52013 Reason for Study: Eval rotator cuff Clinical [...] 01, 2023 Date Verified: OCT 01, 2023 Flange Machine Operator E-Sig:/ES/NEGRITA HART MD Report: Exam: MRI [...] cm. The tearing has progressed compared to 202 MRI arthrogram. 2. Mild distal subscapularis tendinopathy [...] Primary Interpreting Staff: NEGRITA HART MD, RADIOLOGIST (Flange Machine Operator) /NEGRITA MATSON [facility] Encounter Notes: All associated encounter notes This section contains the clinical notes associated to the Encounter. Date/Time Encounter Note(s) Provider Source Sep 24, 2023 11:28 AM NO SHOW NOTE: LOCAL TITLE: NO SHOW/CANCELLATION CLINIC NOTE STANDARD TITLE: NO SHOW NOTE DATE OF NOTE: SEP 24, 2023@11:28 ENTRY DATE: SEP 24, 2023@11:28:36 AUTHOR: ARIANA DE LA O EXP COSIGNER: URGENCY: STATUS: COMPLETED not seen for scheduled appointment due to: No Show Production Team Member called 5 minutes after the start of the VVC call. The call was silenced and sent to [employer]. However, the 's voicemail box was full so poem writer was unable to leave a message. Production Team Member stayed on the call for an additional 20 minutes but pt never signed on. Appointment Rescheduled: Please review patient chart and medications for renewal needs (if appropriate). /mindy/ ARIANA DE LA O DPT PHYSICAL THERAPIST Signed: 09/24/2023 11:29 ARIANA DE LA O [facility]
--- OUTSIDE RECORDS SUMMARY | 2023-10-11 15:54 | XMS_ITS | Encounter Summary ---
Author Name Department of Vetera Affairs Organization Department of [facility] Address [address] [place] [address] Support Name Relationship Address Phone MELQUIADES TAYLOR Next of Kin [id number] [place] [address] MELQUIADES TAYLOR Emergency Contact [address] [place] [address] Insurance Providers: All historical and [...] PART B January 01, 2016 PART B [id number] DUSTIN TAYLOR JR PATIENT MEDICARE (WNR) MEDICARE (M) PART A January 01, 2016 PART A [phone] DUSTIN TAYLOR JR PATIENT Selected Encounter This section includes the information on record at [place] for the Encounter. Date/Time Encounter Type Encounter Description Reason Pro vider Source Sep 23, 2023 11:00 AM Outpatient Encounter PHYSICAL THERAPY IHE Encounter Template Text not used by [place] Plan of Treatment: Future Appointments (+ 6 months) and Future Tests (+/- 45 days) The Plan of Treatment section includes future care activities for the patient from all [place] treatmentfacilities. This section includes future appointments and future orders which are active, pending or scheduled. Future Appointments This section includes appointments that were scheduled to occur 6 months from the date of the Encounter, up to a maximum of 20 appointments. The data comes from all [place] treatment facilities. Appointment Date/Time Appointment Type Appointme nt Facility Name Sep 24, 2023 11:00 AM AMBULATORY - REHAB MEDICIN E [facility] Sep 25, 2023 11:00 AM AMBULATORY - REHAB MEDICIN E [facility] Oct 01, 2023 07:00 AM AM[facility]ULATORY [facility] NONE [facility] Oct 01, 2023 12:30 PM AM[facility]UL[facility]ORY - NONE [place] [facility] Oct 01, 2023 01:00 PM AMBULATORY - SURGERY [place] [facility] [facility] Oct 04, 2023 02:30 PM AMBULATORY - REHAB MEDICIN E [facility] Oct 14, 2023 11:30 AM AMBULATORY - REHAB MEDICIN E [facility] Oct 25, 2023 11:30 AM AMBULATORY - REHAB MEDICIN E [facility] Oct 31, 2023 01:00 PM AMBULATORY - NONE [facility] Nov 01, 2023 02:00 PM AMBULATORY - NONE [facility] 2023 09:00 AM AMBULATORY - REHAB MEDICIN E [facility] Feb 26, 2024 01:30 PM AMBULATORY [...] of theEncounter. The data comes from all [place] treatment facilities. Test Date/Time Test Type Test Details Facility Name Aug 13, 2023 09:18 AM Consult Order COMMUNITY CARE-CHIROPRACTIC Cons Card Tender's Choice [facility] Aug 30, 2023 02:56 PM Consult Order SLEEP APNE A CLINIC OUTPT Cons Card Tender's Choice [facility] Oct 31, 2023 12:00 AM Laboratory - Chemi stry Order CBC BLOOD SP ONCE [facility] Oct 31, 2023 12:00 AM Laboratory - Chemi stry Order TESTOSTERONE SERUM SP ONCE [facility] Lab Results: +/- 30 days of the encounter This section includes the Chemistry and Hematology Lab Results on record with [place] for the patient. Radiology Reports and Pathology Reports are provided separately, in subsequent sections. Lab Results This section contains the Chemistry/Hematology Results that were resulted 30 days before or 30 daysafter the date of the Encounter. Date/Time Source Result Type Result - Unit Interpretation Reference Range Comment Aug 27, 2023 08:20 AM [facility] LIPID PANEL,NON-FASTING Specimen Type: PLASMA No comment entered. Ordering Provider: CHRISTINA HAQUE CCA Report Released Date/Time: Feb 27, 2023 08:53 AM Reporting Lab: [facility] [id number] Performing Lab: [facility] [id number] CHOLESTEROL 177 <199 .HDL 49 >40 LDL CALCULATION 113 H <99 VLDL CALCULATION 15 <29 NON HDL CHOLESTEROL 128 <129 TRIG(NON FASTING) 77 <149 Aug 27, 2023 08:20 AM [facility] TESTOSTERONE Specimen Type: SERUM No comment entered. Ordering Provider: NISHA SILVER MA Report Released Date/Time: Apr 08, 2023 10:57 AM Reporting Lab: [facility] [id number] Performing Lab: [facility] [id number] TESTOSTERONE 1382 H [phone] Aug 27, 2023 08:20 AM [facility] CBC Specimen Type: BLOOD No comment entered. Ordering Provider: NISHA SILVER MA Report Released Date/Time: Apr 08, 2023 10:57 AM Reporting Lab: [facility] [address] Performing Lab: [facility] [id number] WBC 9.37 4.0-11.0 RBC 5.79 4.6-6.2 HGB 17.0 13.5-17.9 HCT 52.0 41-54 MCV 89.8 80-100 MCH 29.4 27-33 MCHC 32.7 32.0-37.5 PLT 202 150-400 MPV 10.4 7.4-10.4 RDW 14.5 11.5-14.5 Social History: Smoking Status (Most current) and Tobacco Use (All prior to encounter date) This section includes the most current, and the historical, smoking and tobacco- related health factors from the [place] facility where the Encounter took place. Current Smoking Status This section includes the most current smoking, or tobacco-related health factor, from the [place] facility where the Encounter took place. Date/Time Current Smoking Status Comment Shayne alston Nov 20, 2016 09:03 AM LIFETIME NON-TOBACCO USER [facility] Tobacco Use History This section includes a history of the smoking, or tobacco-related health factors, that were collected on or before the date of the Encounter. The data comes from the [place] facility where the Encounter took place. Date/Time Smoking Status/Tobacco Use Comment F acility Jun 29, 2016 07:34 AM INPT NO TOBACCO USE IN LAST 30 D AYS [facility] Dec 12, 2015 12:47 PM LIFETIME NON-TOBACCO USER [facility] Dec 28, 2014 12:34 PM LIFETIME NON-TOBACCO USER [facility] Jul 08, 2012 07:40 AM LIFETIME NON-TOBACCO USER [facility] Radiology Reports: +/- 30 days [...] the Encounter. The data comes from all [place] treatment facilities. Date/Time Radiology Report Provider Source Oct 01, 2023 12:22 PM SHOULDER LEFT 4V(AP,Y VIEW, GRASHEY & AXILLARY): DUSTIN TAYLOR [id number] -1970 M Exm Date: OCT 01, 2023@12:22 Req Phys: BAYRON PHAM MD Pat Loc: [facility] MD PHAM (Req'g Loc Img Loc: MAIN X-RAY Service: Unknown (Case [id number] COMPLETE) SHOULDER LEFT 4V(AP,Y VIEW, GRASH(RAD Detailed) CPT:90423 Proc Modifiers : LEFT Reason for Study: Pain Clinical History: [place] IS NOT under investigation for COVID-19 or is COVID-19 negative Pain Responsible provider name and phone number to notify for critical findings if other than user placing the order and pager listed below: User placing orders pager: LAST CREATININE 1.4 H (02/26/23) Report Status: Verified Date Reported: OCT 01, 2023 Date Verified: OCT 01, 2023 Commissions Coordinator E-Sig:/ES/SARA BROWNE MD Report: DATE/TIME REGISTERED: 10/01/2023 [...] Primary Interpreting Staff: SARA BROWNE MD, RADIOLOGIST (Commissions Coordinator) /SARA MENDOZA [facility] Oct 01, 2023 06:51 AM MRI SHOULDER LEFT (P): DUSTIN TAYLOR [id number] -1970 M Exm Date: OCT 01, 2023@06:51 Req Phys: BAYRON PHAM MD Pat Loc: [facility]TH[facility] MD PHAM (Req'g Loc Img Loc: MRI IMAGING Service: Unknown (Case [id number] COMPLETE) MRI SHOULDER LEFT W/O CONTRAST (MRI Detailed) CPT:19160 Reason for Study: Eval rotator cuff Clinical [...] 01, 2023 Date Verified: OCT 01, 2023 Commissions Coordinator E-Sig:/ES/NEGRITA HART MD Report: Exam: MRI SHOULDER [...] Primary Interpreting Staff: NEGRITA HART MD, RADIOLOGIST (Commissions Coordinator) /NEGRITA MATSON [facility] Encounter Notes: All associated encounter notes This section contains the clinical notes associated to the Encounter. Date/Time Encounter Note(s) Provider Source Sep 23, 2023 11:11 AM NO SHOW NOTE: LOCAL TITLE: NO SHOW/CANCELLATION CLINIC NOTE STANDARD TITLE: NO SHOW NOTE DATE OF NOTE: SEP 23, 2023@11:11 ENTRY DATE: SEP 23, 2023@11:11:12 AUTHOR: ARIANA DE LA O EXP COSIGNER: URGENCY: STATUS: COMPLETED [place] not seen for scheduled appointment due to: No Show. School Bus Aide called 5 min after the start time of the call. He forgot his appt and was currently driving in his vehicle. He indicated he would be stationary at noon. School Bus Aide indicated the appt will have to be rescheduled. noted he has a [address] Kaufman. He will wait until after that appt to decide if he wants to reschedule. He confirmed that he knows the rehab scheduling number. Appointment Rescheduled: No Please review patient chart and medications for renewal needs (if appropriate). /mindy/ ARIANA DE LA O DPT PHYSICAL THERAPIST Signed: 09/23/2023 11:13 ARIANA DE LA O [facility]
== END 2023-10-07 18:47 | disposition home or self-care (01) ==
LOC: AMB 10-11 15:44
PROVIDERS: Visit Provider Emergency Medicine Emergency Medical Services
DX: S29.9XXA Unspecified injury of thorax, initial encounter (principal); S49.92XA Unspecified injury of left shoulder and upper arm, initial encounter; V49.9XXA Car occupant (driver) (passenger) injured in unspecified traffic accident, initial encounter; Y92.410 Unspecified street and highway as the place of occurrence of the external cause
CPT/HCPCS: A0425; A0427